=== PATIENT | female | born 1950 | race Caucasian/White ===

== ENCOUNTER 2017-11-07 15:02 | Outpatient (CLI) | payer MEDICARE, BC ==
[~2017-11-07 15:02] MED LIST: Gadobenate Dimeglumine 529 MG/1 ML (20ML VIAL) ONE
== END 2017-11-07 15:03 | disposition home or self-care (01) ==
LOC: BICMRI 15:02
PROVIDERS: ATTEND Internal Medicine
DX: M47.22 Other spondylosis with radiculopathy, cervical region (principal); M48.02 Spinal stenosis, cervical region; M99.51 Intervertebral disc stenosis of neural canal of cervical region
CPT/HCPCS: 72156; A9579

== ENCOUNTER 2017-12-03 11:30 | Inpatient (IN) | payer MEDICARE, BC ==
[2017-12-03 16:38] VITALS: BMI 29.1
[2017-12-11] MEDS ORDERED: CEFAZOLIN/Water 2 GM/20 ML SYRINGE ONE (06:54)
[2017-12-11] MEDS ORDERED: Bacitracin Zinc Ointment 30 gm TUBE ONE (08:38)
[2017-12-11] MEDS ORDERED: Sodium Chloride 0.9% 10 ML ONE (08:38)
[2017-12-11] MEDS ORDERED: Thrombin 5000 UNITS/5 ML VIAL ONE (08:38)
[2017-12-11] MEDS ORDERED: Fentanyl 100 MCG/2 ML VIAL ONE ×3 (09:51→11:41)
[2017-12-11] MEDS ORDERED: Milk Of Magnesia 30 ML UDCUP PO PRN (12:07)
[2017-12-11] MEDS ORDERED: Mag-Al 1200 mg/1200 mg/30 ML UDCUP PO PRN (12:07)
[2017-12-11] MEDS ORDERED: Fleet Enema 133 ML BOT PR PRN (12:07)
[2017-12-11] MEDS ORDERED: Promethazine HCl 25 MG/ML VIAL IM PRN (12:07)
[2017-12-11] MEDS ORDERED: HYDROcodone/Acetaminophen 7.5/325 mg Tablet PO PRN (12:07)
[2017-12-11] MEDS ORDERED: Bisacodyl 10 MG SUPP PR PRN (12:07)
[2017-12-11] MEDS ORDERED: Acetaminophen 325 MG TAB PO PRN (12:07)
[2017-12-11] MEDS ORDERED: tiZANidine HCl 4 MG TAB PO PRN (12:07)
[2017-12-11] MEDS ORDERED: traMADol HCl 50 MG TAB PO PRN (12:07)
[2017-12-11] MEDS ORDERED: Acetaminophen/Codeine 30-300mg Tablet PO PRN (12:07)
[2017-12-11] MEDS ORDERED: Morphine 4 MG/ML VIAL SLOW IVP PRN (12:15)
--- NOTE | 2017-12-11 12:36 | OP ---
OR: 11. WOUND TYPE: Type 1 wound. SURGEON: Hansel Thompson M.D. UTILITY OPERATOR YARN: Dylon Fonseca PA-C. 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 PROCEDURES PERFORMED: 1. C4-C5, C5-C6, C6-C7 anterior diskectomies for decompression of spinal cord and nerve roots. 2. Placement of interbody spacers for fusion packed with local bone autograft obtained from same [facility] ision and allograft, C4-C5, C5-C6, C6-C7. 3. Anterior cervical plate and screw fixation, C4, C5, C6, C7. 4. Use of operative microscope for microdissection. DESCRIPTION OF PROCEDURE: After informed consent was obtained from the patient, the patient was brou ght to OR. Proper patient pause and identification was carried out. She was placed under general an esthesia and positioned supine on the OR table. Right oblique anterior sanna was drawn out. This reg ion was sterilely cleansed, prepared, and draped. Proper patient pause and identification was fred d out. The wound was then opened with a combination of sharp, monopolar and blunt dissection, procee ded lateral to the larynx and pharynx and medial to the right carotid sheath. We identified the prev ertebral layer of deep cervical fascia. This was dissected, longus colli muscles were identified and retraction placed. The microscope was brought in the field at the localization and distraction at C 4-C5 occurred. Diskectomy was performed with decompression of spinal cord and nerve roots and prepar ation of the endplates. Interbody spacer packed with graft was placed for arthrodesis. Distraction was removed at C4-C5 and C5-C6. Distraction occurred. Diskectomy was performed there as well with d ecompression of the neural elements and preparation of the endplates as well and placement of a space r packed with graft at C5-C6. We then did the same procedure at C6-C7 with distraction and diskectom y, placement of a graft for arthrodesis and we then removed the microscope. A plate was affixed to t he cervical spine at, C4, C5, C6, C7. Copious irrigation occurred throughout. Hemostasis was maximi zed. The wound was then closed in anatomic layers over a drain. The patient then emerged from anest hesia.
[2017-12-11] MEDS: Sodium Chloride 0.9% 1,000 ML IV SCH (13:45)
[2017-12-11] MEDS ORDERED: CEFAZOLIN/Water 2 GM/20 ML SYRINGE SLOW IVP SCH (15:00)
[2017-12-11] MEDS ORDERED: ALPRAZolam 0.25 MG TAB PO PRN (16:21)
[2017-12-11] MEDS ORDERED: Loratadine 10 MG TAB PO PRN (16:21)
[2017-12-11] MEDS ORDERED: Esmolol 100 MG/10 ML VIAL ONE (16:40)
[2017-12-11] MEDS ORDERED: Dexamethasone 20 MG/5 ML VIAL ONE (16:40)
[2017-12-11] MEDS ORDERED: Lidocaine 1% PF 5 ML VIAL ONE (16:40)
[2017-12-11] MEDS ORDERED: Glycopyrrolate 0.2 MG/ML 5 ML SYRINGE ONE (16:40)
[2017-12-11] MEDS ORDERED: ePHEDrine/0.9% NaCl/PF SYRINGE 50 mg/10 ml ONE (16:40)
[2017-12-11] MEDS ORDERED: PROPOFOL 200 MG/20 ML VIAL ONE (16:40)
[2017-12-11] MEDS: metFORMIN 500 MG TAB PO SCH (18:41)
[2017-12-11] MEDS ORDERED: BROMFENAC SODIUM EA EYE SCH (21:00)
[2017-12-11] MEDS: Loteprednol Etabonate 0.5% Ophth Suspension 5 ml Bottle L EYE SCH (21:14)
[2017-12-12] MEDS: CEFAZOLIN/Water 2 GM/20 ML SYRINGE SLOW IVP SCH ×2 (01:40→09:05)
[2017-12-12] MEDS: Sodium Chloride 0.9% 1,000 ML IV SCH ×2 (06:38→12:01)
[2017-12-12 08:06] VITALS: BP 143/83; TEMP 98.2
[2017-12-12] MEDS ORDERED: glyBURIDE 5 MG TAB PO SCH (09:00)
[2017-12-12] MEDS ORDERED: CANAGLIFLOZIN PO SCH (09:00)
[2017-12-12] MEDS ORDERED: Escitalopram Oxalate 10 mg Tablet PO SCH (09:00)
[2017-12-12] MEDS ORDERED: Non-Formulary Item 1 EACH (Insulin Detemir [Levemir Flextouch] 10 UNIT) SC SCH (09:00)
[2017-12-12] MEDS ORDERED: Insulin Detemir 100 UNITS/ML 10 UNITS in Pre-Filled Syringe SC SCH (09:00)
[2017-12-12] MEDS: metFORMIN 500 MG TAB PO SCH (09:09)
[2017-12-12] MEDS: Loteprednol Etabonate 0.5% Ophth Suspension 5 ml Bottle L EYE SCH (12:01)
--- NOTE | 2017-12-12 20:40 | PRG ---
DATE OF SERVICE: 12/12/2017 SUBJECTIVE: Ms. Shannon is postoperative day #1 from multilevel ACDF. She is doing very well wit h improvement in her arm pain. She has good strength and is mobilizing. We went over intra and post operative issues. Her drain output is minimal. Her exam demonstrates good strength. She will be di smissed today following drain removal.
[2017-12-24] MEDS ORDERED: Cyanocobalamin 1000 MCG/ML VIAL SC SCH (09:00)
== END 2017-12-12 12:06 | disposition home or self-care (01) | DRG 472 ==
LOC: SURG A 12-11 05:57 → SJJU 12-11 13:09
PROVIDERS: ADMIT Surgery; ATTEND Surgery
PROC: 0RB30ZZ Excision of Cervical Vertebral Disc, Open Approach (ICD-10-PCS; principal; 2017-12-11)
PROC: 0RG2070 Fusion of 2 or more Cervical Vertebral Joints with Autologous Tissue Substitute, Anterior Approach, Anterior Column, Open Approach (ICD-10-PCS; 2017-12-11)
DX: M48.02 Spinal stenosis, cervical region (principal); G95.9 Disease of spinal cord, unspecified; D64.9 Anemia, unspecified; E78.5 Hyperlipidemia, unspecified; I10 Essential (primary) hypertension; E11.9 Type 2 diabetes mellitus without complications; M54.12 Radiculopathy, cervical region; Z87.891 Personal history of nicotine dependence
CPT/HCPCS: 36416; 76001; A4216; C1713; C1776; J1100; J1815; J2001; J2704; J3010; J3490

== ENCOUNTER 2017-12-03 16:15 | Outpatient (CLI) | payer MEDICARE, BC ==
[2017-12-03 18:09] LABS: Hemoglobin 13.2 g/dL (12.0-16.0); Mean Corpuscular HGB CONC 31.3 g/dL (32.0-36.0); Mean Corpuscular Hemoglobin 30.5 pg (27.0-31.0); Mean Corpuscular Volume 97.2 fl (81.0-99.0); Mean Platelet Volume 7.2 fL (7.4-10.4); Platelet Count 237 thou/uL (130-400); RBC Distribution Width 11.8 % (11.5-14.5); Red Blood Cell (RBC) Count 4.35 mill/uL (4.20-5.40); White Blood Cell (WBC) Count 8.1 thou/uL (4.8-10.8)
[2017-12-03 18:15] LABS: Prothrombin Time 13.5 SEC (12.0-14.7)
[2017-12-03 18:16] LABS: PTT 28.6 SEC (22.9-36.1)
[2017-12-03 18:28] LABS: Anion Gap 8 mmol/L (10-20); BUN (Urea Nitrogen) 20 mg/dL (9.8-20.1); Calc. Creatinine Clearance 0 mL/min (70-130); Calcium 9.2 mg/dL (7.8-10.44); Carbon Dioxide 31 mmol/L (23-31); Chloride 100 mmol/L (98-107); Estimated GFR-MDRD 55; Glucose 138 mg/dL (80-115); Potassium 4.3 mmol/L (3.5-5.1); Sodium 135 mmol/L (136-145)
== END 2017-12-03 16:16 | disposition home or self-care (01) ==
LOC: LABBT 16:15
PROVIDERS: ATTEND Surgery
DX: Z01.818 Encounter for other preprocedural examination (principal); M48.02 Spinal stenosis, cervical region; M54.12 Radiculopathy, cervical region
CPT/HCPCS: 80048; 85027; 85610; 85730; 93005; 93010

== ENCOUNTER 2017-12-20 02:12 | Emergency (ER) | payer MEDICARE, BC ==
[2017-12-20] MEDS ORDERED: Acetaminophen 500 MG TAB ONE (03:25)
[2017-12-20] MEDS ORDERED: Dextrose 50% Abboject 50 ML SYRINGE ONE (03:25)
[2017-12-20] MEDS ORDERED: HYDROcodone/Acetaminophen 7.5/325 mg Tablet ONE (04:07)
== END 2017-12-20 05:21 | disposition home or self-care (01) ==
LOC: ERS 02:12
DX: T38.3X1A Poisoning by insulin and oral hypoglycemic [antidiabetic] drugs, accidental (unintentional), initial encounter (principal); D50.0 Iron deficiency anemia secondary to blood loss (chronic); E11.9 Type 2 diabetes mellitus without complications; I10 Essential (primary) hypertension; Z79.4 Long term (current) use of insulin; Z79.899 Other long term (current) drug therapy
CPT/HCPCS: 36416; 96374

== ENCOUNTER 2018-01-28 13:33 | Outpatient (CLI) | payer MEDICARE, BC ==
--- NOTE | 2018-01-28 14:18 | RAD ---
CERVICAL SPINE: History: Follow up surgery. M54.12 Technique: AP, lateral, open mouth odontoid and swimmer's view cervical spine obtained. FINDINGS: Images demonstrate ACDF with anterior plate and screws fusing the C4, C5, C6, and C7 levels. Plates a nd screws are in good position. Intervertebral disc hardware is also in good position. No evidence of fractures, subluxations, or bony lesions seen. IMPRESSION: Mid and lower cervical ACDF with hardware in good position. POS: [facility]
== END 2018-01-28 13:34 | disposition home or self-care (01) ==
LOC: TBSIIMAG 13:33
PROVIDERS: ATTEND Surgery
DX: M54.12 Radiculopathy, cervical region (principal); Z98.1 Arthrodesis status
CPT/HCPCS: 72040

== ENCOUNTER 2018-02-16 12:53 | Outpatient (CLI) | payer MEDICARE, BC | END 2018-02-16 12:54 | disposition home or self-care (01) | LOC: BICMRI 12:53 | PROVIDERS: ATTEND Surgery | DX: M54.5 Low back pain (principal); M47.896 Other spondylosis, lumbar region; M43.16 Spondylolisthesis, lumbar region; M99.83 Other biomechanical lesions of lumbar region; M48.061 Spinal stenosis, lumbar region without neurogenic claudication | CPT/HCPCS: 72110; 72148 ==

== ENCOUNTER 2018-03-17 09:18 | Outpatient (CLI) | payer MEDICARE, BC ==
[2018-03-17] MEDS ORDERED: ISOVUE-370 76%-LOCM 1 ML ONE (12:30)
== END 2018-03-17 09:19 | disposition home or self-care (01) ==
LOC: BICCT 09:18
PROVIDERS: ATTEND Thoracic Surgery (Cardiothoracic Vascular Surgery)
DX: I65.29 Occlusion and stenosis of unspecified carotid artery (principal); I65.23 Occlusion and stenosis of bilateral carotid arteries; I65.03 Occlusion and stenosis of bilateral vertebral arteries; I77.1 Stricture of artery; J44.9 Chronic obstructive pulmonary disease, unspecified; Z98.1 Arthrodesis status
CPT/HCPCS: 70498; 82565

== ENCOUNTER 2018-04-28 07:10 | Outpatient (CLI) | payer MEDICARE, BC | END 2018-04-28 07:11 | disposition home or self-care (01) | LOC: ULT 07:10 | DX: I63.233 Cerebral infarction due to unspecified occlusion or stenosis of bilateral carotid arteries (principal); I08.3 Combined rheumatic disorders of mitral, aortic and tricuspid valves | CPT/HCPCS: 93306 ==

== ENCOUNTER 2018-09-02 12:55 | Outpatient (CLI) | payer MEDICARE, BC ==
--- NOTE | 2018-09-02 13:41 | RAD ---
PA AND LATERAL CHEST: History: Dyspnea. FINDINGS: The heart size is normal. The aorta is tortuous. The lungs are well expanded without focal areas of c onsolidation, pneumothoraces or pleural effusions. There are post op changes in the metallic hardware in the lower cervical spine. IMPRESSION: No radiographic evidence of acute cardiopulmonary process. POS: OFF
== END 2018-09-02 12:56 | disposition home or self-care (01) ==
LOC: RAD 12:55
PROVIDERS: ATTEND Internal Medicine
DX: R06.00 Dyspnea, unspecified (principal)
CPT/HCPCS: 71046

== ENCOUNTER 2018-09-10 08:55 | Outpatient (CLI) | payer MEDICARE, BC | END 2018-09-10 08:56 | disposition home or self-care (01) | LOC: CP 08:55 | PROVIDERS: ATTEND Internal Medicine | DX: J43.9 Emphysema, unspecified (principal); G47.33 Obstructive sleep apnea (adult) (pediatric) | CPT/HCPCS: 94060; 94727; 94729 ==

== ENCOUNTER 2018-10-01 17:00 | Outpatient (CLI) | payer MEDICARE, BC | END 2018-10-01 17:01 | disposition home or self-care (01) | LOC: SLEEPLAB 17:00 | PROVIDERS: ATTEND Internal Medicine | DX: G47.33 Obstructive sleep apnea (adult) (pediatric) (principal); I10 Essential (primary) hypertension; R09.89 Other specified symptoms and signs involving the circulatory and respiratory systems; R51 Headache; R06.83 Snoring; R35.1 Nocturia; R09.02 Hypoxemia | CPT/HCPCS: 95806 ==

== ENCOUNTER 2018-12-09 | Outpatient (CLI) | payer MEDICARE, BC ==
[2018-12-09 11:32] LABS: Hemoglobin 13.3 g/dL (12.0-16.0); Mean Corpuscular HGB CONC 31.9 g/dL (32.0-36.0); Mean Corpuscular Volume 97.2 fL (78.0-98.0); Mean Platelet Volume 7.5 fL (7.4-10.4); Platelet Count 234 thou/uL (130-400); RBC Distribution Width 13.1 % (11.5-14.5); Red Blood Cell (RBC) Count 4.28 mill/uL (4.20-5.40); White Blood Cell (WBC) Count 6.9 thou/uL (4.8-10.8)
[2018-12-09 11:38] LABS: PTT 29.4 SEC (22.9-36.1); Prothrombin Time 13.2 SEC (12.0-14.7)
[2018-12-09 11:53] LABS: Anion Gap 13 mmol/L (10-20); BUN (Urea Nitrogen) 22 mg/dL (9.8-20.1); Calc. Creatinine Clearance 0 mL/min (70-130); Calcium 9.2 mg/dL (7.8-10.44); Carbon Dioxide 28 mmol/L (23-31); Chloride 100 mmol/L (98-107); Estimated GFR-MDRD 69; Glucose 125 mg/dL (80-115); Potassium 4.2 mmol/L (3.5-5.1); Sodium 137 mmol/L (136-145)
--- NOTE | 2018-12-09 17:09 | EKG ---
Test Reason : Blood Pressure : / mmHG Vent. Rate : 071 BPM Atrial Rate : 071 BPM P-R Int : 132 ms QRS Dur : 072 ms QT Int : 416 ms P-R-T Axes : 036 -09 015 degrees QTc Int : 452 ms Normal sinus rhythm Inferior infarct , age undetermined Anterior infarct , age undetermined Abnormal ECG When compared with ECG of 03-DEC-2017 16:27, No significant change was found Confirmed by Lionel ZAYAS ([id number]) on 12/09/2018 5:09:15 PM Referred By: TUTU Confirmed By:Lionel ZAYAS
== END 2018-12-09 00:01 | disposition home or self-care (01) ==
LOC: LABBT
PROVIDERS: ATTEND Surgery
DX: Z01.818 Encounter for other preprocedural examination (principal); M54.16 Radiculopathy, lumbar region; M48.061 Spinal stenosis, lumbar region without neurogenic claudication
CPT/HCPCS: 80048; 85027; 85610; 85730; 93005; 93010

== ENCOUNTER 2018-12-15 07:18 | Day surgery (SDC) | payer MEDICARE, BC ==
[2018-12-09 10:09] VITALS: BMI 26.4
[2018-12-15] MEDS ORDERED: Bacitracin Zinc Ointment 30 gm TUBE ONE (10:16)
[2018-12-15] MEDS ORDERED: Sodium Chloride 0.9% 10 ML ONE (10:16)
[2018-12-15] MEDS ORDERED: Thrombin 5000 UNITS/5 ML VIAL ONE ×2 (10:16→12:07)
[2018-12-15] MEDS ORDERED: Fentanyl 100 MCG/2 ML VIAL ONE (10:19)
[2018-12-15] MEDS ORDERED: Ondansetron PF 4 MG/2 ML Vial ONE (13:26)
[2018-12-15] MEDS ORDERED: Morphine 2 MG/ML SYRINGE SLOW IVP PRN (13:27)
[2018-12-15] MEDS ORDERED: traMADol HCl 50 MG TAB PO PRN (13:27)
[2018-12-15] MEDS ORDERED: Fleet Enema 133 ML BOT PR PRN (13:27)
[2018-12-15] MEDS ORDERED: Mag-Al 1200 mg/1200 mg/30 ML UDCUP PO PRN (13:27)
[2018-12-15] MEDS ORDERED: Bisacodyl 10 MG SUPP PR PRN (13:27)
[2018-12-15] MEDS ORDERED: Acetaminophen/Codeine 30-300mg Tablet PO PRN (13:27)
[2018-12-15] MEDS ORDERED: HYDROcodone/Acetaminophen 7.5/325 mg Tablet PO PRN (13:27)
[2018-12-15] MEDS ORDERED: Milk Of Magnesia 30 ML UDCUP PO PRN (13:27)
[2018-12-15] MEDS ORDERED: ALPRAZolam 0.25 MG TAB PO PRN (13:30)
[2018-12-15] MEDS ORDERED: Promethazine HCl 25 MG/ML VIAL IM PRN (13:31)
[2018-12-15] MEDS ORDERED: Promethazine HCl 25 MG/ML VIAL SLOW IVP PRN (13:31)
[2018-12-15] MEDS ORDERED: Ondansetron HCl/PF 4 MG/2 ML Vial IVP PRN (13:31)
[2018-12-15] MEDS ORDERED: PHENYLEPHRINE-NS 100 MCG/ML 10 ML SYRINGE ONE (14:26)
[2018-12-15] MEDS ORDERED: Dexamethasone 20 MG/5 ML VIAL ONE (14:26)
[2018-12-15] MEDS ORDERED: Rocuronium Bromide 10 MG/ML (10ML VIAL) ONE (14:26)
[2018-12-15] MEDS ORDERED: PROPOFOL 200 MG/20 ML VIAL ONE (14:26)
[2018-12-15] MEDS ORDERED: Glycopyrrolate 0.2 MG/ML 5 ML SYRINGE ONE (14:26)
[2018-12-15] MEDS ORDERED: Lidocaine 1% PF 5 ML VIAL ONE (14:26)
[2018-12-15] MEDS ORDERED: ePHEDrine 50 MG/ML VIAL ONE (14:26)
--- NOTE | 2018-12-15 14:44 | OP ---
DATE OF PROCEDURE: 12/15/2018 OPERATING ROOM: OR 12. CHECKER AND PACKER: Dylon Fonseca PA-C PREPROCEDURE DIAGNOSIS: Lumbar stenosis with disk extrusion with low back and leg pain. POSTPROCEDURE DIAGNOSIS: Lumbar stenosis with disk extrusion with low back and leg pain. PROCEDURES PERFORMED: 1. L2-L3, L3-L4 laminectomies, partial facetectomies, foraminotomies with left L2-L3 diskectomy and right L3-L4 diskectomy. 2. Use of operative microscope for microdissection. DESCRIPTION OF PROCEDURE: After informed consent was obtained from the patient, the patient was brought to the OR. Proper patient, pause, and identification were carried out. She was placed under excellent endotracheal anesthesia and positioned prone on the OR table. All appropriate points were padded. We identified the L2, L3, L4 dorsal spines. A linear sanna was made over this area. This region was sterilely cleansed, prepared and draped. Proper patient, pause, and identification were carried out. The wound was then opened with a combination of sharp, monopolar, and blunt dissection. We exposed the L2, L3, L4 dorsal spines and lamina. Localization film confirmed our area of interest. We then performed L2, L3, L4 laminectomies, partial facetectomies, and foraminotomies. Microscope was brought in for microdissection. We then performed a left L2-L3 diskectomy and right L3-L4 diskectomy with excellent decompression of common dural tube and the L2, L3, L4 nerve roots bilaterally along with the thecal sac. Copious irrigation occurred throughout as did maximizing hemostasis. The wound was then closed in anatomic layers following sprinkling of vancomycin powder. The patient then emerged from anesthesia. Job ID: [id number]
[2018-12-15] MEDS: Sodium Chloride 0.9% 1,000 ML IV SCH (17:57)
[2018-12-15] MEDS: metFORMIN 500 MG TAB PO SCH (17:57)
[2018-12-15] MEDS: CEFAZOLIN 2 GM in Premix Bag 1 BAG IVPB SCH ×2 (17:58→23:58)
[2018-12-15] MEDS: Polyethylene Glycol OPTH DROP 15 ML BOT EA EYE SCH (20:17)
[2018-12-15] MEDS ORDERED: Atorvastatin Calcium 40 MG TAB PO SCH (21:00)
[2018-12-15] MEDS ORDERED: Clopidogrel Bisulfate 75 MG TAB ONE (22:29)
[2018-12-15] MEDS ORDERED: HumaLOG 300 UNITS/3 ML VIAL SC PRN ×2 (22:56)
[2018-12-15] MEDS ORDERED: Dextrose 50% Abboject 50 ML SYRINGE IVP PRN (22:56)
[2018-12-15] MEDS ORDERED: Dextrose 5% in Water 1,000 ML IV PRN (22:56)
[2018-12-15] MEDS: Acetaminophen 325 MG TAB PO PRN (23:58)
[2018-12-16] MEDS: Sodium Chloride 0.9% 1,000 ML IV SCH (04:04)
[2018-12-16] MEDS: Acetaminophen 325 MG TAB PO PRN (07:23)
[2018-12-16 07:47] VITALS: BP 138/73; TEMP 98.1
[2018-12-16] MEDS ORDERED: Ferrous Sulfate 325 MG TAB PO SCH (08:00)
[2018-12-16] MEDS ORDERED: Escitalopram Oxalate 10 mg Tablet PO SCH (09:00)
[2018-12-16] MEDS ORDERED: EMPAGLIFLOZIN PO SCH (09:00)
[2018-12-16] MEDS ORDERED: INSULIN DEGLUDEC 5 UNIT SC SCH (09:00)
[2018-12-16] MEDS ORDERED: Insulin Glargine 5 UNITS in Pre-Filled Syringe 1 EACH SC SCH (09:00)
[2018-12-16] MEDS: metFORMIN 500 MG TAB PO SCH (09:16)
[2018-12-16] MEDS: Polyethylene Glycol OPTH DROP 15 ML BOT EA EYE SCH (09:17)
--- NOTE | 2018-12-16 10:11 | PRG ---
DATE OF SERVICE: 12/16/2018 SUBJECTIVE: Ms. Shannon is postoperative day 1 from lumbar decompression diskectomy. She is doing well with improvement in her leg pain and is very appreciative of the evaluation. We will make arrangements for dismissal and we went over do's and don'ts in the postoperative period. Job ID: [id number]
== END 2018-12-16 10:40 ==
LOC: SDC 07:18 → SURG B 15:49 → UNDOADMOB 15:49 → INTOOBSV 15:49 → UNDODISOB 12-16 10:40 → SDC 12-16 10:40
PROVIDERS: ATTEND Surgery
PROC: 01NB0ZZ Release Lumbar Nerve, Open Approach (ICD-10-PCS; principal; 2018-12-15)
PROC: 0ST20ZZ Resection of Lumbar Vertebral Disc, Open Approach (ICD-10-PCS; 2018-12-15)
DX: M48.061 Spinal stenosis, lumbar region without neurogenic claudication (principal); M51.26 Other intervertebral disc displacement, lumbar region; Z79.4 Long term (current) use of insulin; Z79.82 Long term (current) use of aspirin; Z79.899 Other long term (current) drug therapy; Z91.048 Other nonmedicinal substance allergy status; Z98.1 Arthrodesis status; Z98.890 Other specified postprocedural states
CPT/HCPCS: 36416; 76000; J0690; J1100; J1825; J2001; J2405; J2704; J3010; J3370; J3490

== ENCOUNTER 2019-01-16 18:16 | Emergency (ER) | payer MEDICARE, BC ==
[2019-01-16] MEDS ORDERED: Lidocaine 1% w/Epinephrine 1:100K 20 ML VIAL ONE (19:01)
[2019-01-16 19:16] LABS: #Basophils 0.1 thou/uL (0.0-0.2); #Eosinphils 0.2 thou/uL (0.0-0.7); #Monocytes 0.6 thou/uL (0.11-0.59); #Neutrophils 3.5 thou/uL (1.40-6.50); %Basophils 1.1 % (0.0-1.0); %Lymphocytes 31.7 % (21.0-51.0); %Monocytes 9.2 % (0.0-10.0); %Neutrophils 55.1 % (42.0-75.0); Mean Corpuscular HGB CONC 31.3 g/dL (32.0-36.0); Mean Corpuscular Hemoglobin 29.7 pg (27.0-31.0); Mean Corpuscular Volume 94.9 fL (78.0-98.0); Mean Platelet Volume 7.2 fL (7.4-10.4); Platelet Count 254 thou/uL (130-400); RBC Distribution Width 12.8 % (11.5-14.5); Red Blood Cell (RBC) Count 4.06 mill/uL (4.20-5.40); White Blood Cell (WBC) Count 6.3 thou/uL (4.8-10.8)
[2019-01-16 19:36] LABS: ALT (SGPT) 16 U/L (8-55); AST (SGOT) 18 U/L (5-34); Albumin 3.6 g/dL (3.4-4.8); Alkaline Phosphatase 93 U/L (40-150); Anion Gap 13 mmol/L (10-20); BUN (Urea Nitrogen) 24 mg/dL (9.8-20.1); Bilirubin, Total 0.3 mg/dL (0.2-1.2); CRP (Inflammatory) 1.94 mg/dL (= or < 0.5); Calc. Creatinine Clearance 0 mL/min (70-130); Calcium 9.2 mg/dL (7.8-10.44); Carbon Dioxide 27 mmol/L (23-31); Chloride 102 mmol/L (98-107); Estimated GFR-MDRD 68; Globulin 2.8 g/dL (2.4-3.5); Glucose 89 mg/dL (80-115); Potassium 4.1 mmol/L (3.5-5.1); Protein, Total 6.4 g/dL (6.0-8.3); Sodium 138 mmol/L (136-145)
--- NOTE | 2019-01-16 21:08 | OP ---
DATE OF PROCEDURE: 01/16/2019 PROCEDURE: Wound repair. INDICATION: Wound dehiscence. LOCATION: Lumbar lower region. PROCEDURE NOTE: The area was prepped and draped in sterile fashion. Local anesthesia was achieved using 1% lidocaine without epinephrine. The wound was irrigated with normal saline. 2-0 nylon interrupted vertical mattress sutures were placed. Five were placed. Following the procedure, sterile dressing was applied. The patient tolerated the procedure well without complications. We will arrange a followup visit with Dr. Thompson early next week. The patient will remain on Keflex. Job ID: [id number]
== END 2019-01-16 19:51 | disposition home or self-care (01) ==
LOC: ERS 18:16
DX: T81.31XA Disruption of external operation (surgical) wound, not elsewhere classified, initial encounter (principal); E11.9 Type 2 diabetes mellitus without complications; E61.1 Iron deficiency; I10 Essential (primary) hypertension; H35.30 Unspecified macular degeneration
CPT/HCPCS: 36415; 80053; 85025; 85652; 86140; 99283; J2001

== ENCOUNTER 2019-04-14 08:57 | Outpatient (CLI) | payer MEDICARE, BC ==
--- NOTE | 2019-04-14 11:26 | RAD ---
BARIUM SWALLOW ESOPHAGRAM: EXPOSURE: 2.6 minutes, 11.159 uGy*^cm2. HISTORY: Previous cervical fusion. Abnormal sensation and difficulty swallowing in the cervical esophagus. FINDINGS: The patient was administered effervescent crystals followed by thick and thin barium. There does appear to be flash penetration without definite aspiration. The cervical esophagus does n ot demonstrate any delay in passage. No evidence of stricture or narrowing. The thoracic esophagus has a normal force and caliber. No obvious mucosal abnormality. There does a ppear to be a small hiatal hernia. There was evidence of reflux during intermittent fluoroscopy. Th e patient was administered a 13 mm barium tablet which passed without difficulty. IMPRESSION: 1. No evidence of significant stenosis or mass effect of the cervical esophagus, specifically at the level of the cervical fusion hardware. 2. Possible flash penetration without aspiration. Consider evaluation with speech pathology. 3. Intermittent reflux during fluoroscopy. POS: OFF
--- NOTE | 2019-04-20 06:47 | MMO ---
Bilateral MAMMO Bilat Screen [id number]+NAWAF. CLINICAL HISTORY: Patient is 69 years old and is seen for screening. The patient has the following family history of breast cancer: paternal grandmother. The patient has no personal history of cancer. VIEWS: The views performed were: bilateral craniocaudal with tomosynthesis and bilateral mediolateral oblique with tomosynthesis. FILMS COMPARED: The present examination has been compared to a prior imaging study performed at [facility] on 11/29/2010. MAMMOGRAM FINDINGS: There are scattered fibroglandular densities. There are benign appearing calcifications seen in both breasts. There are no suspicious masses, suspicious calcifications, or new areas of architectural distortion. IMPRESSION: THERE IS NO MAMMOGRAPHIC EVIDENCE OF MALIGNANCY. A ROUTINE FOLLOW-UP MAMMOGRAM IN 1 YEAR IS RECOMMENDED. THE RESULTS OF THIS EXAM WERE SENT TO THE PATIENT. ACR BI-RADS Category 2 - Benign finding MAMMOGRAPHY NOTE: 1. A negative mammogram report should not delay a biopsy if a dominant of clinically suspicious mass is present. 2. Approximately 10% to 15% of breast cancers are not detected by mammography. 3. Adenosis and dense breasts may obscure an underlying neoplasm. Reported by: GENA BAPTISTE MD Electonically Signed: [id number]
== END 2019-04-14 08:58 | disposition home or self-care (01) ==
LOC: RAD 08:57
PROVIDERS: ATTEND Internal Medicine
DX: R47.02 Dysphasia (principal)
CPT/HCPCS: 74220; 77063; 77067

== ENCOUNTER 2019-09-15 07:38 | Outpatient (CLI) | payer MEDICARE, BC ==
--- NOTE | 2019-09-15 09:10 | CT ---
CT ABDOMEN AND PELVIS WITH CONTRAST: HISTORY: Abdominal pain. COMPARISON: None. FINDINGS: There are large bilateral layering pleural effusions. There appears to be a pseudoaneurysm of the le ft 9th intercostal artery which is partially thrombosed. It measures approximately 1 cm in size. The hepatic attenuation is somewhat heterogeneous. Multiple hypodensities are sub-5 mm and too small to fully characterize, although statistically is likely a cyst. There is aortoiliac bypass graft bypassing an occluded distal abdominal aorta. The bypass graft does appear to be patent. The iliac vessels are patent. There are high-grade calcifications of the bila teral common femoral arteries with concern for occlusion of the right common femoral artery with flow within the femoral artery. There is near-complete occlusion of the left common femoral artery. Extensive third spacing of fluid. Prior gastric surgery. Prior cholecystectomy. [place] effect of the intrahepatic and extrahepatic biliary system. Pancre as is mildly atrophied. The celiac trunk origin is nearly completely occluded with low volume of flow within the celiac arter y tributaries including the splenic artery, hepatic artery, and left gastric artery. There is subseq uent hypertrophy of the superior mesenteric artery. The appendix is visualized and is normal. There are no dilated loops of large or small bowel. No fr ee intraperitoneal gas or significant fluid. There is a chronic superior end plate wedge compression fracture and Schmorl's node at L1. Likely in traosseous hemangioma of L3. Prior laminectomy changes at L2-L3. There is high-grade neural foramin al narrowing at L4-5 due to a disk bulge and hypertrophic facet arthrosis. The adrenal glands are unremarkable. The spleen is unremarkable. IMPRESSION: 1. Large bilateral layering pleural effusions. 2. A 1 cm pseudoaneurysm of the left 9th intercostal artery axial image 13. 3. Multiple hypodensities in the liver too small to fully characterize sub 5 mm suggestive of cyst. 4. Extensive third spacing of fluid likely suggestive of underlying diastolic dysfunction or volume overload. 5. Patent aortobiiliac graft bypassing the occluded distal abdominal aorta and iliac vessels. 6. High-grade narrowing, likely a focal occlusion of the right common femoral artery with flow withi n the right femoral artery completely evaluated. Followup CT angiogram with runoff to the feet may b e beneficial in this patient versus a conventional angiogram with therapy. 7. High-grade narrowing of the left femoral artery and common femoral artery. 8. No evidence for bowel obstruction or acute bowel inflammatory process. 9. High-bony near complete occlusion of the origin of the celiac trunk with low volume flow within the celiac tributaries. POS: TPC
[2019-09-15] MEDS ORDERED: Iopamidol 370 76% 100 ML VIAL ONE (13:40)
== END 2019-09-15 07:39 | disposition home or self-care (01) ==
LOC: CT 07:38
PROVIDERS: ATTEND Internal Medicine Gastroenterology
DX: R10.9 Unspecified abdominal pain (principal); J90 Pleural effusion, not elsewhere classified; K76.89 Other specified diseases of liver
CPT/HCPCS: 74177; 82565; Q9967

== ENCOUNTER 2019-10-26 12:39 | Outpatient (CLI) | payer MEDICARE, BC ==
[2019-10-26 13:30] LABS: #Basophils 0.1 thou/uL (0.0-0.2); #Eosinphils 0.3 thou/uL (0.0-0.7); #Lymphocytes 1.8 thou/uL (1.20-3.40); #Monocytes 0.6 thou/uL (0.11-0.59); #Neutrophils 4.5 thou/uL (1.40-6.50); %Basophils 1.4 % (0.0-1.0); %Eosinophils 3.7 % (0.0-10.0); %Lymphocytes 24.3 % (21.0-51.0); %Monocytes 8.5 % (0.0-10.0); %Neutrophils 62.1 % (42.0-75.0); Hemoglobin 13.6 g/dL (12.0-16.0); Mean Corpuscular Hemoglobin 29.2 pg (27.0-31.0); Mean Corpuscular Volume 91.2 fL (78.0-98.0); Mean Platelet Volume 8.3 fL (7.4-10.4); Platelet Count 200 thou/uL (130-400); RBC Distribution Width 14.1 % (11.5-14.5); Red Blood Cell (RBC) Count 4.66 mill/uL (4.20-5.40); White Blood Cell (WBC) Count 7.2 thou/uL (4.8-10.8)
[2019-10-26 13:51] LABS: ALT (SGPT) 13 U/L (8-55); AST (SGOT) 13 U/L (5-34); Albumin 4.3 g/dL (3.4-4.8); Alkaline Phosphatase 97 U/L (40-110); Anion Gap 20 mmol/L (10-20); BUN (Urea Nitrogen) 47 mg/dL (9.8-20.1); Bilirubin, Total 0.4 mg/dL (0.2-1.2); Calc. Creatinine Clearance 0 mL/min (70-130); Calcium 9.2 mg/dL (7.8-10.44); Carbon Dioxide 22 mmol/L (23-31); Chloride 96 mmol/L (98-107); Estimated GFR-MDRD 22; Globulin 3.1 g/dL (2.4-3.5); Glucose 365 mg/dL (80-115); Potassium 5.3 mmol/L (3.5-5.1); Protein, Total 7.4 g/dL (6.0-8.3); Sodium 133 mmol/L (136-145)
== END 2019-10-26 12:40 | disposition home or self-care (01) ==
LOC: LABBT 12:39
PROVIDERS: ATTEND Internal Medicine Cardiovascular Disease
DX: Z01.812 Encounter for preprocedural laboratory examination (principal); I42.0 Dilated cardiomyopathy
CPT/HCPCS: 80053; 85025

== ENCOUNTER 2019-10-28 09:49 | Observation (INO) | payer MEDICARE, BC ==
[2019-10-28 11:06] LABS: Anion Gap 17 mmol/L (10-20); BUN (Urea Nitrogen) 49 mg/dL (9.8-20.1); Calc. Creatinine Clearance 27 mL/min (70-130); Calcium 9.4 mg/dL (7.8-10.44); Carbon Dioxide 25 mmol/L (23-31); Cardiac Risk 2.9 (Less than 4.5); Chloride 98 mmol/L (98-107); Cholesterol 174 mg/dl (< 200 Desired); Estimated GFR-MDRD 24; Glucose 179 mg/dL (80-115); HDL Cholesterol 59 mg/dL (>60 Neg Risk); LDL Cholesterol, Calculated 96 mg/dL; Potassium 4.4 mmol/L (3.5-5.1); Sodium 136 mmol/L (136-145); Triglycerides 93 mg/dL (Less than 150)
[2019-10-28 15:47] VITALS: BMI 23.8
[2019-10-28] MEDS ORDERED: ALPRAZolam 0.25 MG TAB PO PRN (16:26)
[2019-10-28 16:37] LABS: #Basophils 0.1 thou/uL (0.0-0.2); #Eosinphils 0.2 thou/uL (0.0-0.7); #Lymphocytes 2.1 thou/uL (1.20-3.40); #Monocytes 0.8 thou/uL (0.11-0.59); %Basophils 1.1 % (0.0-1.0); %Eosinophils 2.7 % (0.0-10.0); %Lymphocytes 29.3 % (21.0-51.0); %Monocytes 10.9 % (0.0-10.0); Hemoglobin 12.5 g/dL (12.0-16.0); Mean Corpuscular HGB CONC 32.4 g/dL (32.0-36.0); Mean Corpuscular Hemoglobin 29.4 pg (27.0-31.0); Mean Corpuscular Volume 90.9 fL (78.0-98.0); Platelet Count 178 thou/uL (130-400); RBC Distribution Width 14.2 % (11.5-14.5); Red Blood Cell (RBC) Count 4.24 mill/uL (4.20-5.40); White Blood Cell (WBC) Count 7.1 thou/uL (4.8-10.8)
[2019-10-28] MEDS ORDERED: Aspirin 81 mg Enteric Coated Tablet PO SCH (16:45)
[2019-10-28] MEDS ORDERED: Lisinopril 10 MG TAB PO SCH (16:45)
[2019-10-28] MEDS ORDERED: Escitalopram Oxalate 10 mg Tablet PO SCH (16:45)
[2019-10-28 16:58] LABS: ALT (SGPT) 11 U/L (8-55); AST (SGOT) 13 U/L (5-34); Albumin 3.8 g/dL (3.4-4.8); Alkaline Phosphatase 83 U/L (40-110); Anion Gap 17 mmol/L (10-20); BUN (Urea Nitrogen) 44 mg/dL (9.8-20.1); Bilirubin, Total 0.3 mg/dL (0.2-1.2); Calc. Creatinine Clearance 26 mL/min (70-130); Calcium 8.8 mg/dL (7.8-10.44); Carbon Dioxide 22 mmol/L (23-31); Cardiac Risk 3.1 (Less than 4.5); Chloride 99 mmol/L (98-107); Cholesterol 158 mg/dl (< 200 Desired); Estimated GFR-MDRD 23; Glucose 379 mg/dL (80-115); HDL Cholesterol 51 mg/dL (>60 Neg Risk); LDL Cholesterol, Calculated 89 mg/dL; Potassium 4.7 mmol/L (3.5-5.1); Protein, Total 6.8 g/dL (6.0-8.3); Sodium 133 mmol/L (136-145); Triglycerides 90 mg/dL (Less than 150)
[2019-10-28] MEDS: Sodium Chloride 0.9% 1,000 ML IV SCH (17:24)
[2019-10-28] MEDS ORDERED: Atorvastatin Calcium 40 MG TAB PO SCH (21:00)
[2019-10-28] MEDS: Polyethylene Glycol OPTH DROP 15 ML BOT EA EYE SCH (21:58)
[2019-10-28] MEDS ORDERED: Dextrose 50% Abboject 50 ML SYRINGE IVP PRN (22:35)
[2019-10-28] MEDS ORDERED: Dextrose 5% in Water 1,000 ML IV PRN (22:35)
[2019-10-28] MEDS ORDERED: Insulin Regular 300 UNITS/3 ML VIAL SC PRN ×2 (22:35)
[2019-10-29] MEDS: Polyethylene Glycol OPTH DROP 15 ML BOT EA EYE SCH (05:51)
[2019-10-29 05:54] LABS: Anion Gap 12 mmol/L (10-20); BUN (Urea Nitrogen) 38 mg/dL (9.8-20.1); Calc. Creatinine Clearance 34 mL/min (70-130); Calcium 8.6 mg/dL (7.8-10.44); Carbon Dioxide 25 mmol/L (23-31); Chloride 103 mmol/L (98-107); Estimated GFR-MDRD 31; Glucose 112 mg/dL (80-115); Potassium 4.4 mmol/L (3.5-5.1); Sodium 136 mmol/L (136-145)
[2019-10-29] MEDS: Sodium Chloride 0.9% 1,000 ML IV SCH (05:59)
[2019-10-29] MEDS ORDERED: Lidocaine 1% (PF) 30 ML VIAL ONE (06:28)
[2019-10-29] MEDS ORDERED: Midazolam HCl 2 mg/2 ml Vial ONE (07:40)
[2019-10-29] MEDS ORDERED: Fentanyl 100 MCG/2 ML VIAL ONE (07:41)
[2019-10-29] MEDS ORDERED: Verapamil 5 MG/2 ML VIAL ONE (07:42)
[2019-10-29] MEDS ORDERED: Nitroglycerin 100MG/250ML BOT 250 ML ONE (07:42)
[2019-10-29] MEDS ORDERED: Heparin 10,000 UNITS/1 ML VIAL ONE (07:42)
[2019-10-29] MEDS ORDERED: Acetaminophen/Codeine 30-300mg Tablet PO PRN (08:11)
[2019-10-29] MEDS ORDERED: Sodium Chloride 0.9% 200 ML IV PRN (08:11)
[2019-10-29] MEDS ORDERED: Nitroglycerin 0.4 MG TAB (25 Tab Bottle) SL PRN (08:11)
[2019-10-29] MEDS ORDERED: Sodium Chloride 0.9% 300 ML IV SCH (08:15)
--- NOTE | 2019-10-29 08:21 | HP ---
HISTORY OF PRESENT ILLNESS: Ms. Shannon was scheduled for an outpatient heart catheterization, however, she had a creatinine of 2.07, so she was admitted for hydration overnight. Please see my H and P from the office for further details. I attached that note in this note for reference. The details of the H and P, past medical history, past surgical history, medications, and allergies are all documented there, no changes. PHYSICAL EXAMINATION: VITAL SIGNS: Temperature 98.2, pulse 78, respiratory rate 20, saturating 98% on room air, and blood pressure 138/62. GENERAL: Awake, alert, and oriented x3. No distress. HEENT: Normocephalic and atraumatic. NECK: Supple. LUNGS: Clear. CARDIOVASCULAR: S1 and S2. No S3 or S4. ABDOMEN: Soft. Positive bowel sounds. LABORATORY DATA: Laboratory work was reviewed. ASSESSMENT: 1. New onset systolic dysfunction. 2. Severe peripheral vascular disease. PLAN: Hydration overnight and heart catheterization on 10/29/2019. Job ID: [id number]
[2019-10-29] MEDS ORDERED: Lisinopril 10 MG TAB PO SCH (09:00)
[2019-10-29] MEDS ORDERED: Escitalopram Oxalate 10 mg Tablet PO SCH (09:00)
[2019-10-29] MEDS ORDERED: Insulin Glargine 5 UNITS in Pre-Filled Syringe 1 EACH SC SCH (09:00)
[2019-10-29] MEDS ORDERED: Aspirin 81 mg Enteric Coated Tablet PO SCH (09:00)
[2019-10-29] MEDS ORDERED: Ferrous Sulfate 325 MG TAB PO SCH (09:00)
[2019-10-29] MEDS ORDERED: JARDIANCE PO SCH (09:00)
[2019-10-29] MEDS ORDERED: Meloxicam 7.5 MG TAB PO SCH (09:00)
[2019-10-29] MEDS ORDERED: Iopamidol 370 76% 100 ML VIAL ONE (09:22)
[2019-10-29 16:08] VITALS: BP 106/55; TEMP 97.5
--- NOTE | 2019-10-29 16:21 | DIS ---
DATE OF ADMISSION: 10/28/2019 DATE OF DISCHARGE: 10/29/2019 SUMMARY: Ms. Shannon was admitted overnight for hydration for heart catheterization this morning. She had this done. She did well. She was found to have multivessel disease and will need coronary artery bypass grafting. She is in good spirits. Denies any angina. Her radial site looks intact. Dr. Robles already evaluated her and plan is to do surgery sometime next week. She is in stable condition. She should be able to be discharged home. She received her IV fluids postoperatively and is doing well. MEDICATIONS: Unchanged from admission. We will ask her to hold metformin over the weekend and restart on Friday. FOLLOWUP APPOINTMENTS: She will be scheduled for CABG sometime in next week. Job ID: [id number]
[2019-11-04] MEDS ORDERED: Cyanocobalamin 1000 MCG/ML VIAL IM SCH (09:00)
== END 2019-10-29 16:58 | disposition home health service (06) ==
LOC: CCL 09:49 → 2SW 12:13
PROVIDERS: ADMIT Internal Medicine Cardiovascular Disease; ATTEND Internal Medicine Cardiovascular Disease
PROC: 4A023N7 Measurement of Cardiac Sampling and Pressure, Left Heart, Percutaneous Approach (ICD-10-PCS; principal; 2019-10-28)
PROC: B2111ZZ Fluoroscopy of Multiple Coronary Arteries using Low Osmolar Contrast (ICD-10-PCS; 2019-10-28)
DX: I42.0 Dilated cardiomyopathy (principal); I35.1 Nonrheumatic aortic (valve) insufficiency; I65.23 Occlusion and stenosis of bilateral carotid arteries; I73.9 Peripheral vascular disease, unspecified; I50.33 Acute on chronic diastolic (congestive) heart failure; E11.40 Type 2 diabetes mellitus with diabetic neuropathy, unspecified; G47.30 Sleep apnea, unspecified; Z79.4 Long term (current) use of insulin; Z79.82 Long term (current) use of aspirin; Z79.899 Other long term (current) drug therapy; Z87.891 Personal history of nicotine dependence; Z99.89 Dependence on other enabling machines and devices
CPT/HCPCS: 80048 ×2; 80053; 80061; 82962 ×2; 85025; 93458; 94760; 96360; 96361 ×2; C1769 ×2; G0378 ×2; 36415; 36416; 99152; J1644; J1815; J2001; J2250; J3010; Q9967

== ENCOUNTER 2019-11-08 15:30 | Inpatient (IN) | payer MEDICARE, BC ==
[2019-11-08 16:42] VITALS: BMI 24.6
[2019-11-09] MEDS ORDERED: Albumin 5% 500 ML ONE (06:31)
[2019-11-09] MEDS ORDERED: Dexmedetomidine 200 MCG/2 ML VIAL ONE (06:44)
[2019-11-09] MEDS ORDERED: Fentanyl 250 MCG/5 ML VIAL ONE (06:44)
[2019-11-09] MEDS ORDERED: Vecuronium 10 MG VIAL ONE ×2 (06:44→10:14)
[2019-11-09] MEDS ORDERED: Midazolam HCl 5 mg/5 ml Vial ONE (06:44)
[2019-11-09] MEDS ORDERED: Heparin 10,000 UNITS/1 ML VIAL 30,000 UNITS in Sodium Chloride 0.9% 1,000 ML FS SCH (06:45)
[2019-11-09] MEDS ORDERED: Midazolam HCl 2 mg/2 ml Vial ONE (07:02)
--- NOTE | 2019-11-09 07:12 | HP ---
HISTORY OF PRESENT ILLNESS: This is a 69-year-old lady, who I have followed for many years, who I saw about 6 weeks ago. At that time, she had recently been discharged from the hospital diuresing about 25 pounds of fluid. She had not felt well since Thanksgiving with fluid retention and fatigue. She was seen by Dr. Kendall, who recommended a cardiac catheterization after an echo showed an EF of 40% to 45% with inferior hypokinesis. She underwent a right arm catheterization showing a high-grade LAD lesion, occluded left dominant circ with visualization of a bifurcating OM and a left PDA. CT scan of her abdomen demonstrated a patent aortoiliac graft with significant severe bilateral common femoral artery stenosis that needed attention. She has a known left subclavian artery occlusion or high-grade lesion and significant disease in her innominate artery making blood pressure monitoring impossible for any extremity. PAST MEDICAL HISTORY: Includes rheumatic aortic valve insufficiency, type 2 diabetes, peripheral vascular disease, emphysema, neuropathy, sleep apnea, on CPAP. PAST SURGICAL HISTORY: Aorta bi-iliac bypass graft, lumbar laminectomy, hip replacement, right carotid endarterectomy, laparoscopic cholecystectomy, gastric bypass, plastic surgery to remove excess abdominal wall tissue. PAST MEDICAL HISTORY: Hypertension, dyslipidemia, diabetes mellitus, PAD, carotid disease, subclavian artery disease. MEDICATIONS: Include; 1. Atorvastatin 40. 2. Alprazolam 0.5 b.i.d. 3. Tresiba 5 units daily. 4. Metformin 1000 b.i.d. 5. Protonix 40 a day. 6. Escitalopram tablet daily. 7. Aspirin 81 a day. 8. Jardiance 25 mg orally. 9. Lisinopril 10 mg a day. 10. Iron supplements. 11. Amitiza 24 mcg b.i.d. 12. Meloxicam 7.5 daily. 13. Lasix 40 a day. ALLERGIES: NONE KNOWN. PHYSICAL EXAMINATION: GENERAL: Alert, cooperative lady, pleasant, in no distress. VITAL SIGNS: Heart rate 65, blood pressure 100/ in the right arm. Height 5 feet 5 inches, weight 158. NECK: No carotid bruits. CARDIAC: Regular rate and rhythm. No murmurs. LUNGS: Clear to auscultation. EXTREMITIES: No edema. She has palpable femoral pulses with bruits. PLAN: The patient could have bypass grafting to the LAD, OM, left PDA, possibly diagonal and the LENZ will have to be used as a free graft. Consideration will be given to a right aorto subclavian bypass to allow blood pressure monitoring and temporary placement of a right femoral arterial line will be done. Informed consent has been obtained. Job ID: [id number]
[2019-11-09] MEDS ORDERED: Sodium Chloride 0.9% 10 ML ONE (07:49)
[2019-11-09] MEDS ORDERED: Glycopyrrolate 0.2 MG/ML 5 ML SYRINGE ONE (10:14)
[2019-11-09] MEDS ORDERED: Heparin 5,000 UNITS/ML VIAL ONE (10:14)
[2019-11-09] MEDS ORDERED: PHENYLEPHRINE-NS 100 MCG/ML 10 ML SYRINGE ONE ×2 (10:14→10:44)
[2019-11-09] MEDS ORDERED: PROPOFOL 200 MG/20 ML VIAL ONE (10:14)
[2019-11-09] MEDS ORDERED: Norepinephrine 4 MG/4 ML VIAL ONE (10:14)
[2019-11-09] MEDS ORDERED: Lidocaine 1% PF 5 ML VIAL ONE (10:14)
[2019-11-09] MEDS ORDERED: Thrombin 5000 UNITS/5 ML VIAL ONE (10:14)
[2019-11-09] MEDS ORDERED: Cardioplegic Soln 1,000 ML BAG ONE (10:14)
[2019-11-09] MEDS ORDERED: Protamine Sulfate 250 MG/25 ML VIAL ONE (10:14)
[2019-11-09] MEDS ORDERED: Dexamethasone 20 MG/5 ML VIAL ONE (10:14)
[2019-11-09] MEDS ORDERED: Heparin 30,000 units/30 ml VIAL ONE (10:14)
[2019-11-09] MEDS ORDERED: Potassium Chloride 60 MEQ/30 ML VIAL ONE (10:14)
[2019-11-09] MEDS ORDERED: Aminocaproic Acid 5 GM/20 ML VIAL ONE (10:14)
[2019-11-09] MEDS ORDERED: Papaverine 60 MG/2 ML VIAL ONE (10:14)
[2019-11-09] MEDS ORDERED: Nitroglycerin 50 MG/250 ML BOT ONE (10:14)
[2019-11-09] MEDS ORDERED: Calcium Chloride 1 GM/10 ML Abboject SYRINGE ONE (10:14)
[2019-11-09] MEDS ORDERED: Magnesium Sulfate 1 GM/2 ML VIAL ONE (10:14)
[2019-11-09] MEDS ORDERED: Sodium Bicarb 50 MEQ/50 ML Abboject 8.4% SYRINGE ONE (10:14)
[2019-11-09] MEDS ORDERED: Ondansetron PF 4 MG/2 ML Vial ONE (10:14)
[2019-11-09] MEDS ORDERED: Lidocaine 2% PF 5 ML VIAL ONE (10:14)
[2019-11-09] MEDS ORDERED: Insulin Regular 300 UNITS/3 ML VIAL ONE (10:58)
[2019-11-09] MEDS ORDERED: Potassium Chloride 20 MEQ/100 ML PREMIX BAG IVPB PRN (12:00)
[2019-11-09] MEDS ORDERED: Nitroglycerin 50 MG/250 ML BOT 250 ML IVPB PRN (12:00)
[2019-11-09] MEDS ORDERED: Mag-Al 1200 mg/1200 mg/30 ML UDCUP PO PRN (12:00)
[2019-11-09] MEDS ORDERED: Fentanyl 100 MCG/2 ML VIAL SLOW IVP PRN (12:00)
[2019-11-09] MEDS ORDERED: niCARdipine 25 MG in Sodium Chloride 0.9% 250 ML 250 ML IVPB PRN (12:00)
[2019-11-09] MEDS ORDERED: Acetaminophen 325 MG TAB PO PRN (12:00)
[2019-11-09] MEDS ORDERED: HYDROcodone/Acetaminophen 5/325 mg Tablet PO PRN ×2 (12:00)
[2019-11-09] MEDS ORDERED: Norepinephrine 8 MG/0.9% NS 250 ML IVPB PRN (12:00)
[2019-11-09] MEDS ORDERED: Ondansetron PF 4 MG/2 ML Vial IVP PRN (12:00)
[2019-11-09] MEDS ORDERED: hydrALAZINE 20 MG/ML VIAL SLOW IVP PRN (12:00)
[2019-11-09] MEDS ORDERED: DOPamine 400 MG/D5W 250 ML 250 ML IVPB PRN (12:00)
[2019-11-09] MEDS ORDERED: Morphine 2 MG/ML SYRINGE SLOW IVP PRN (12:00)
[2019-11-09] MEDS ORDERED: Hetastarch 6% 500 ML 500 ML IVPB PRN (12:00)
[2019-11-09] MEDS ORDERED: Post-Op Insulin Drip Protocol IVPB ONE (12:00)
[2019-11-09] MEDS ORDERED: Magnesium 2 GM/50 ML 2 GM in Premix Bag 1 BAG IVPB SCH (12:00)
[2019-11-09] MEDS ORDERED: Guaifenesin DM 100-10/5 ML UDCUP PO PRN (12:00)
[2019-11-09] MEDS ORDERED: Bisacodyl 5 MG TAB PO PRN (12:00)
[2019-11-09] MEDS ORDERED: Bisacodyl 10 MG SUPP PR PRN (12:00)
[2019-11-09] MEDS ORDERED: HUMULIN R 100 UNITS in Sodium Chloride 0.9% 100 ML IVPB SCH (12:09)
[2019-11-09] MEDS ORDERED: Dextrose 50% Abboject 50 ML SYRINGE SLOW IVP PRN (12:09)
[2019-11-09] MEDS ORDERED: Dextrose 5% in Water 1,000 ML IV PRN (12:09)
[2019-11-09] MEDS: Lactated Ringer's 1,000 ML IV SCH ×2 (12:15→21:15)
[2019-11-09 12:22] LABS: Actual Bicarbonate (HCO3a) 20.7 mEq/L (22-28); Base Excess (BEa) -5.6 mEq/L (-2.0 to +3.0); Calcium, Ionized 1.08 mmol/L (1.12-1.30); Carboxyhemoglobin (COHb) 0.2 gm% (0.0-3.0); Hemoglobin (Hb) 10.1 g/dL (12.0-16.0); O2 Tension (PaO2) 156.4 mmHg (> 80.0); Potassium - ABG Lab 3.93 mmol/L (3.70-5.30); pH, Arterial 7.29 (7.35-7.45)
[2019-11-09 12:49] LABS: #Eosinphils 0.1 thou/uL (0.0-0.7); #Lymphocytes 1.5 thou/uL (1.20-3.40); #Monocytes 0.6 thou/uL (0.11-0.59); #Neutrophils 5.3 thou/uL (1.40-6.50); %Basophils 0.4 % (0.0-1.0); %Eosinophils 1.7 % (0.0-10.0); %Lymphocytes 19.4 % (21.0-51.0); %Monocytes 8.1 % (0.0-10.0); %Neutrophils 70.5 % (42.0-75.0); Hemoglobin 10.1 g/dL (12.0-16.0); MDiff Complete? YES; Mean Corpuscular Hemoglobin 29.1 pg (27.0-31.0); Mean Corpuscular Volume 90.7 fL (78.0-98.0); Mean Platelet Volume 7.9 fL (7.4-10.4); Platelet Count 112 thou/uL (130-400); Platelet Morphology Comment Appears Decreased; Polychromasia SLIGHT = 2-3 cells (100X) (0-2/hpf); RBC Distribution Width 14.7 % (11.5-14.5); Red Blood Cell (RBC) Count 3.46 mill/uL (4.20-5.40); White Blood Cell (WBC) Count 7.6 thou/uL (4.8-10.8)
[2019-11-09 12:50] LABS: INR-International Normal Ratio 1.4; PTT 35.5 SEC (22.9-36.1); Prothrombin Time 17.5 SEC (12.0-14.7)
--- NOTE | 2019-11-09 12:58 | RAD ---
PORTABLE CHEST 1 VIEW: DATE: 11/09/2019. TIME: 12:32 PM. HISTORY: Post open heart surgery. FINDINGS/IMPRESSION: There are changes of median sternotomy. The heart is enlarged. The aorta is tortuous. There are po stop changes of metallic hardware in the lower cervical spine. There is an endotracheal tube with ti p at the level of the clavicular heads. There is a left subclavian central line with tip in the proj ection of the cavoatrial junction. Left-sided chest tube is present. No lobar consolidation, pneumo thoraces, anibal pulmonary edema, or large effusions identified. POS: TPC
[2019-11-09 13:09] LABS: Anion Gap 12 mmol/L (10-20); BUN (Urea Nitrogen) 40 mg/dL (9.8-20.1); Calc. Creatinine Clearance 39 mL/min (70-130); Carbon Dioxide 21 mmol/L (23-31); Chloride 107 mmol/L (98-107); Estimated GFR-MDRD 36; Glucose 87 mg/dL (80-115); Sodium 136 mmol/L (136-145)
[2019-11-09 13:42] LABS: Puncture Site ALINE
[2019-11-09] MEDS ORDERED: Prevnar 13-Val Conj/PF 0.5 ML SYRINGE IM ONE (13:45)
[2019-11-09] MEDS ORDERED: FLU VACC TS2019-20(65YR UP)/PF 180 MCG/0.5 ML SYRINGE IM ONE (13:45)
[2019-11-09] MEDS: CEFAZOLIN 2 GM in Premix Bag 1 BAG IVPB SCH ×2 (14:18→21:15)
[2019-11-09] MEDS: Fentanyl 100 MCG/2 ML VIAL SLOW IVP PRN (14:45)
[2019-11-09 16:00] LABS: Actual Bicarbonate (HCO3a) 19.5 mEq/L (22-28); Base Excess (BEa) -6.2 mEq/L (-2.0 to +3.0); CO2 Tension 39.3 mmHg (35.0-45.0); Calcium, Ionized 1.07 mmol/L (1.12-1.30); Carboxyhemoglobin (COHb) 0.5 gm% (0.0-3.0); Hemoglobin (Hb) 10.4 g/dL (12.0-16.0); O2 Tension (PaO2) 180.3 mmHg (> 80.0); Potassium - ABG Lab 4.82 mmol/L (3.70-5.30); pH, Arterial 7.31 (7.35-7.45)
[2019-11-09 16:02] LABS: ALV-art Gradient 55.775 (0-20); Puncture Site ALINE
[2019-11-09 17:59] LABS: Hemoglobin 10.6 g/dL (12.0-16.0)
[2019-11-09 18:19] LABS: Potassium 5.1 mmol/L (3.5-5.1)
--- NOTE | 2019-11-09 18:43 | CON ---
DATE OF CONSULTATION: 11/09/2019 REASON FOR CONSULTATION: Status post CABG. HISTORY OF PRESENT ILLNESS: Ms. Shannon is a pleasant 69-year-old white female, who comes to the hospital for a planned CABG. She was found to have worsening cardiomyopathy, was taken to the catheterization lab, where she was found to have multivessel disease. She was recommended to undergo CABG with Dr. Robles, who performed earlier today. On my evaluation, she is intubated and coming off sedation. She is able to follow commands, but she remains intubated. is at bedside. He was updated. She is stable. Otherwise, requiring no pressors. PAST MEDICAL HISTORY: 1. Mild aortic valve insufficiency. 2. Type 2 diabetes. 3. Severe peripheral vascular disease. 4. Emphysema. 5. Neuropathy. 6. Sleep apnea. 7. B12 deficiency. PAST SURGICAL HISTORY: 1. Bariatric surgery in 2003 loosing large amount of weight. 2. Colonoscopy in 2010. 3. Hysterectomy. 4. Appendectomy. 5. Cholecystectomy. OUTPATIENT MEDICATIONS: 1. Atorvastatin. 2. Alprazolam. 3. Tresiba. 4. Metformin. 5. Protonix. 6. Escitalopram. 7. Aspirin. 8. Jardiance. 9. Lisinopril. 10. Iron supplements. 11. Amitiza. 12. Meloxicam. 13. Lasix. ALLERGIES: ADHESIVE TAPE. FAMILY HISTORY: Noncontributory. SOCIAL HISTORY: No alcohol, tobacco, or drugs. REVIEW OF SYSTEM: Unobtainable as the patient is intubated. PHYSICAL EXAMINATION: VITAL SIGNS: Temperature 97.1, pulse 58, respiratory rate 10, saturating 100% on 30% FiO2, and blood pressure 136/47. GENERAL: Awake, alert, but intubated. HEENT: Normocephalic and atraumatic. NECK: Supple. LUNGS: Coarse breath sounds. ABDOMEN: Soft. Positive bowel sounds. CARDIOVASCULAR: S1 and S2. Three-component rub. EXTREMITIES: 1+ edema. SKIN: Warm and dry. LABORATORY DATA: Laboratory work was reviewed. CBC, coags, ABGs, and chemistries were all reviewed. Creatinine is 1.45 today, which is better than what it had been before. ASSESSMENT: 1. Multivessel coronary artery disease. 2. Status post coronary artery bypass grafting x3. 3. Severe peripheral vascular disease, status post right subclavian bypass. 4. Severe bilateral renal artery stenosis. 5. Status post bilateral aortoiliac bypass grafting. 6. Occluded distal abdominal aorta and iliac vessels. 7. High-grade narrowing of right common femoral artery and left femoral artery. PLAN: 1. Continue supportive care. 2. Arterial lines at this time are stable and giving us a good measurements. We can trust those blood pressures at this time. 3. We will need aspirin, statin, beta nona, and JOSH inhibitor once blood pressure allows and she is more stable. Thank you for letting us to participate in the care of the patient. We will follow. Job ID: [id number]
[2019-11-09] MEDS: Famotidine/PF 20 mg/2ml Vial SLOW IVP SCH (19:33)
[2019-11-09] MEDS: Polyethylene Glycol OPTH DROP 15 ML BOT EA EYE SCH (20:10)
[2019-11-09] MEDS: Atorvastatin Calcium 40 MG TAB PO SCH (20:10)
[2019-11-09 20:15] LABS: Actual Bicarbonate (HCO3a) 16.9 mEq/L (22-28); Base Excess (BEa) -8.6 mEq/L (-2.0 to +3.0); CO2 Tension 34.9 mmHg (35.0-45.0); Calcium, Ionized 1.03 mmol/L (1.12-1.30); Carboxyhemoglobin (COHb) 0.5 gm% (0.0-3.0); Hemoglobin (Hb) 9.8 g/dL (12.0-16.0)
[2019-11-09 20:16] LABS: Puncture Site ALINE
[2019-11-09 20:17] LABS: ALV-art Gradient 40.275 (0-20)
[2019-11-09] MEDS ORDERED: Sodium Bicarb 50 MEQ/50 ML VIAL IVP SCH (20:45)
[2019-11-10 03:52] LABS: #Lymphocytes 0.9 thou/uL (1.20-3.40); #Monocytes 1.1 thou/uL (0.11-0.59); #Neutrophils 8.6 thou/uL (1.40-6.50); %Basophils 0.1 % (0.0-1.0); %Eosinophils 0.1 % (0.0-10.0); %Lymphocytes 8.4 % (21.0-51.0); %Monocytes 10.3 % (0.0-10.0); %Neutrophils 81.1 % (42.0-75.0); Mean Corpuscular HGB CONC 32.1 g/dL (32.0-36.0); Mean Corpuscular Hemoglobin 29.2 pg (27.0-31.0); Mean Corpuscular Volume 91.1 fL (78.0-98.0); Mean Platelet Volume 8.5 fL (7.4-10.4); Platelet Count 143 thou/uL (130-400); RBC Distribution Width 14.9 % (11.5-14.5); Red Blood Cell (RBC) Count 3.44 mill/uL (4.20-5.40); White Blood Cell (WBC) Count 10.6 thou/uL (4.8-10.8)
[2019-11-10 04:04] LABS: Anion Gap 17 mmol/L (10-20); BUN (Urea Nitrogen) 42 mg/dL (9.8-20.1); Calc. Creatinine Clearance 40 mL/min (70-130); Calcium 8.4 mg/dL (7.8-10.44); Carbon Dioxide 20 mmol/L (23-31); Chloride 106 mmol/L (98-107); Estimated GFR-MDRD 33; Glucose 138 mg/dL (80-115); Potassium 4.4 mmol/L (3.5-5.1); Sodium 139 mmol/L (136-145)
[2019-11-10] MEDS: CEFAZOLIN 2 GM in Premix Bag 1 BAG IVPB SCH (05:07)
--- NOTE | 2019-11-10 07:23 | OP ---
DATE OF PROCEDURE: 11/09/2019 PREOPERATIVE DIAGNOSES: 1. Coronary artery disease. 2. Peripheral vascular disease. PROCEDURES PERFORMED: Aortocoronary artery bypass graft x3, free left internal mammary artery good quality to a 2 mm left anterior descending, good quality saphenous vein to a 1.5 mm diagonal and a 1.5 to 2 mm obtuse marginal. There were no branches on the inferior surface of the heart graft. Additionally, she had ascending aortic to right subclavian artery bypass with a 6-mm Hemashield graft. ADMINISTRATIVE ASSISTANT FRONT DESK: Christophe. TRANSFUSION: None. DESCRIPTION OF PROCEDURE: After adequate anesthesia had been obtained, the patient was prepped and draped. Dr. Saeed did an endovascular vein harvest of the left greater saphenous vein while I performed a median sternotomy, right pleura was entered in one small area inferiorly and the left internal mammary artery was then mobilized. The patient was heparinized and the mammary divided distally and treated with intraluminal papaverine. She had a known high-grade or occlusion of the left subclavian artery, so it was divided proximally to be used as a free graft. Innominate vein was mobilized to allow a graft to pass underneath it and the innominate artery, proximal right carotid and proximal right subclavian were dissected out to the level of the internal mammary artery and the right vertebral artery. The recurrent laryngeal nerve was identified and avoided. Following aortic and right atrial cannulation, cardiopulmonary bypass was begun. Aorta was cross-clamped and a liter of cold blood cardioplegia given through the aortic root. Following which, the 3 distal anastomosis were completed. Cross-clamp was then removed. The subclavian artery was then clamped proximal and distal using a partial occluding clamp and arteriotomy performed, and a 6-mm Hemashield graft was anastomosed in an end-to-side fashion. Following which, the partial occluding clamp was removed from the subclavian artery. It was then placed on the aortic root and the Hemashield graft was then anastomosed to the right anterior lateral aspect of the aortic root with a running 5-0 Prolene suture. Following which, two venous anastomosis were performed through two punch holes on the left anterolateral side. To the cobb of the OM graft, the mammary artery was anastomosed. Following this, the patient was weaned from cardiopulmonary bypass. Cannula was removed and protamine given systemically. Aortic cannulation site was secured with a 4-0 Prolene suture. Mediastinal and bilateral pleural drains were then placed following which the sternum was reapproximated with #7 interrupted wires with vancomycin paste on the sternal edges, platelet-rich blood and platelet-poor plasma. Subcutaneous tissue was then closed with interrupted [id number] Vicryl, following which the skin was closed. The patient is to be taken to the ICU in guarded condition. It should be noted that a right femoral arterial line was placed under ultrasound guidance because of a known calcific blockage in both common femoral arteries. A left subclavian triple-lumen was placed also prior to beginning the procedure. Job ID: [id number]
[2019-11-10] MEDS: Fentanyl 100 MCG/2 ML VIAL SLOW IVP PRN (07:28)
[2019-11-10] MEDS ORDERED: Insulin Glargine 8 UNITS in Pre-Filled Syringe 1 EACH SC PRN (08:11)
--- NOTE | 2019-11-10 08:32 | RAD ---
Exam: Chest one view HISTORY:Status post open heart surgery Comparison: 11/09/2019 FINDINGS: Cardiac silhouette:Normal cardiac silhouette. There are sternotomy wires Lines and tubes: Interval removal of endotracheal tube. Stable left-sided vascular catheter. Stable r ight-sided chest tube. Aorta: Unremarkable Pulmonary vessels: Normal Costophrenic angles: Clear LUNGS: Hyperinflation with chronic lung parenchymal changes, predominantly in the lung bases. Pneumothorax: None Osseous abnormalities: None IMPRESSION: 1. Findings compatible with recent open heart surgery
[2019-11-10] MEDS ORDERED: Aspirin 325 MG TAB PO SCH (09:00)
[2019-11-10] MEDS: Lactated Ringer's 1,000 ML IV SCH ×2 (10:00→12:17)
[2019-11-10] MEDS: Insulin Regular 300 UNITS/3 ML VIAL SC PRN ×3 (10:08→20:24)
[2019-11-10] MEDS: traMADol HCl 50 MG TAB PO PRN ×3 (11:53→22:03)
[2019-11-10] MEDS: Polyethylene Glycol OPTH DROP 15 ML BOT EA EYE SCH ×3 (12:16→20:41)
--- NOTE | 2019-11-10 17:37 | CON ---
DATE OF CONSULTATION: 11/10/2019 HISTORY OF PRESENT ILLNESS: Heidy Shannon is a pleasant 69-year-old female. She has undergone coronary artery bypass grafting. She still has her chest tubes in place. She actually says she is feeling great. PAST MEDICAL HISTORY: Remarkable for; 1. Diabetes. 2. Peripheral vascular disease. 3. Peripheral neuropathy. 4. Smoking history. 5. History of sleep apnea. 6. History of bariatric surgery, which was a gastric bypass. She has recently undergone endoscopy with Dr. Morgan. 7. History of colonoscopy. 8. Status post hysterectomy. 9. History of an appendectomy. 10. History of cholecystectomy. MEDICATIONS: Have been reviewed. FAMILY HISTORY: Positive for vascular disease at young age. REVIEW OF SYSTEMS: Otherwise negative. She is a nonsmoker and nondrinker. Does not use drugs. PHYSICAL EXAMINATION: GENERAL: She is in no distress. VITAL SIGNS: Blood pressure is 126/55, heart rate 74, oximetry is in the high 90s on room air. HEENT: Pupils are equal. Sclerae are anicteric. She has a bandage on her sternum. LUNGS: Clear. HEART: Regular rhythm. S1 and S2 are normal. ABDOMEN: Soft and nontender. EXTREMITIES: Without clubbing, cyanosis, or edema. NEUROLOGIC: Nonfocal. LABORATORY DATA: White count 10.6, hemoglobin 10.0, platelets 143. Sodium 139, potassium 4.4, chloride 106, bicarb 20, BUN 42, creatinine 1.54. Creatinine was 1.45 yesterday. IMPRESSION: Status post coronary artery bypass grafting, doing well postextubation. I will follow the patient while she is in the Critical Care Unit. This is a 70-minute consult, 50% of the time spent on the unit coordinating care. Job ID: [id number] MTDD
[2019-11-10] MEDS: Atorvastatin Calcium 40 MG TAB PO SCH (20:24)
[2019-11-10] MEDS: Famotidine/PF 20 mg/2ml Vial SLOW IVP SCH (20:24)
[2019-11-11] MEDS: traMADol HCl 50 MG TAB PO PRN ×3 (04:54→18:35)
[2019-11-11 05:07] LABS: #Lymphocytes 1.9 thou/uL (1.20-3.40); #Monocytes 1.6 thou/uL (0.11-0.59); #Neutrophils 8.5 thou/uL (1.40-6.50); %Basophils 0.1 % (0.0-1.0); %Eosinophils 0.1 % (0.0-10.0); %Lymphocytes 15.6 % (21.0-51.0); %Monocytes 13.6 % (0.0-10.0); %Neutrophils 70.7 % (42.0-75.0); Hemoglobin 9.1 g/dL (12.0-16.0); Mean Corpuscular HGB CONC 33.1 g/dL (32.0-36.0); Mean Corpuscular Hemoglobin 29.7 pg (27.0-31.0); Mean Corpuscular Volume 89.6 fL (78.0-98.0); Mean Platelet Volume 7.8 fL (7.4-10.4); Platelet Count 163 thou/uL (130-400); RBC Distribution Width 14.8 % (11.5-14.5); Red Blood Cell (RBC) Count 3.05 mill/uL (4.20-5.40)
[2019-11-11 05:31] LABS: Anion Gap 12 mmol/L (10-20); BUN (Urea Nitrogen) 37 mg/dL (9.8-20.1); Calc. Creatinine Clearance 47 mL/min (70-130); Calcium 8.1 mg/dL (7.8-10.44); Carbon Dioxide 26 mmol/L (23-31); Chloride 101 mmol/L (98-107); Estimated GFR-MDRD 38; Glucose 113 mg/dL (80-115); Potassium 4.5 mmol/L (3.5-5.1); Sodium 134 mmol/L (136-145)
[2019-11-11] MEDS ORDERED: Mineral Oil ENEMA PR PRN (07:13)
[2019-11-11] MEDS ORDERED: Bisacodyl 5 MG TAB PO PRN (07:13)
[2019-11-11] MEDS ORDERED: Mag-Al 1200 mg/1200 mg/30 ML UDCUP PO PRN (07:13)
[2019-11-11] MEDS ORDERED: Fentanyl 100 MCG/2 ML VIAL SLOW IVP PRN (07:13)
[2019-11-11] MEDS ORDERED: Acetaminophen 325 MG TAB PO PRN (07:13)
[2019-11-11] MEDS ORDERED: Ondansetron PF 4 MG/2 ML Vial IVP PRN (07:13)
[2019-11-11] MEDS ORDERED: Bisacodyl 10 MG SUPP PR PRN (07:13)
[2019-11-11] MEDS ORDERED: Guaifenesin DM 100-10/5 ML UDCUP PO PRN (07:13)
[2019-11-11] MEDS ORDERED: Nitroglycerin 0.4 MG TAB (25 Tab Bottle) SL PRN (07:13)
[2019-11-11] MEDS ORDERED: HUMULIN R 100 UNITS in Sodium Chloride 0.9% 100 ML IVPB SCH (07:33)
[2019-11-11] MEDS ORDERED: Dextrose 5% in Water 1,000 ML IV PRN (07:33)
[2019-11-11] MEDS ORDERED: Dextrose 50% Abboject 50 ML SYRINGE SLOW IVP PRN (07:33)
[2019-11-11] MEDS: metFORMIN 500 MG TAB PO SCH (07:53)
--- NOTE | 2019-11-11 08:43 | RAD ---
CHEST 1 VIEW: COMPARISON: 11/10/2019. HISTORY: Status post open heart surgery. FINDINGS: There are sternotomy wires, vascular rings, and atherosclerosis of the aorta. Normal cardiac silhoue tte. Redemonstration of bilateral chest tubes and a left-sided vascular catheter. No pneumothorax. No os seous abnormalities. Stable changes in the lung bases. IMPRESSION: Findings compatible with recent open heart surgery. POS: CET
[2019-11-11] MEDS: Furosemide 40 MG TAB PO SCH (08:56)
[2019-11-11] MEDS: Aspirin 325 mg Enteric Coated Tablet PO SCH (08:56)
[2019-11-11] MEDS: Famotidine 20 MG TAB PO SCH (08:56)
[2019-11-11] MEDS: Escitalopram Oxalate 10 mg Tablet PO SCH (08:57)
[2019-11-11] MEDS: Polyethylene Glycol OPTH DROP 15 ML BOT EA EYE SCH ×2 (09:16→20:38)
[2019-11-11] MEDS: EMPAGLIFLOZIN 25 MG PO SCH (11:11)
[2019-11-11] MEDS: Insulin Regular 300 UNITS/3 ML VIAL SC PRN ×2 (11:51→20:38)
--- NOTE | 2019-11-11 12:00 | PRG ---
DATE OF SERVICE: 11/11/2019 SUBJECTIVE: Shiva is in no distress. Her chest tubes out. OBJECTIVE: VITAL SIGNS: She is afebrile, heart rate is in the 70s, blood pressure 125/63, respiratory rates in the teens to low 20s. LUNGS: Clear. HEART: Regular rhythm. ABDOMEN: Soft. LABORATORY DATA: White count 12, hemoglobin 9.1, and platelets 163. Sodium 134, potassium 4.5, chloride 101, bicarb 26, BUN 37, and creatinine 1.37 which is down from 1.54. IMPRESSION: 1. Status post coronary artery bypass grafting. 2. Transient renal insufficiency secondary to contrast combined with the surgery, improved. PLAN: She is ambulating in the [place] with minimal assistance. She will stable to transfer out of the critical care unit. We will sign off on transfer. Job ID: [id number]
[2019-11-11] MEDS: Atorvastatin Calcium 40 MG TAB PO SCH (20:37)
[2019-11-11] MEDS: ALPRAZolam 0.25 MG TAB PO PRN (20:43)
[2019-11-12 05:17] LABS: Anion Gap 12 mmol/L (10-20); BUN (Urea Nitrogen) 33 mg/dL (9.8-20.1); Calc. Creatinine Clearance 48 mL/min (70-130); Calcium 7.9 mg/dL (7.8-10.44); Carbon Dioxide 26 mmol/L (23-31); Chloride 98 mmol/L (98-107); Estimated GFR-MDRD 40; Glucose 108 mg/dL (80-115); Sodium 132 mmol/L (136-145)
--- NOTE | 2019-11-12 07:30 | PRG ---
DATE OF SERVICE: 11/12/2019 The patient has been afebrile. Her blood pressures range from 120 to 130, and her room air sats have been good. Her weight was recorded as 160 and compared to 167 two days ago and 148 on admission. Laboratory values includea creatinine of 1.32, which is stable compared to the prior day. Her sugars have been relatively well controlled on her current medical regimen. She is ambulating to the [place] and bathroom without difficulty and has no complaints. On exam, lungs are clear to auscultation. She does have a prominent bruise on the upper sternum that has been present since surgery. She has a strong palpable right radial pulse. She has no peripheral edema. PLAN: At this time, is continued ambulation. Diuresis as tolerated by renal function and probably home in the next 24 to 48 hours. Job ID: [id number]
[2019-11-12] MEDS: Famotidine 20 MG TAB PO SCH (08:36)
[2019-11-12] MEDS: Furosemide 40 MG TAB PO SCH (08:36)
[2019-11-12] MEDS: metFORMIN 500 MG TAB PO SCH (08:36)
[2019-11-12] MEDS: Aspirin 325 mg Enteric Coated Tablet PO SCH (08:36)
[2019-11-12] MEDS: EMPAGLIFLOZIN 25 MG PO SCH (08:37)
[2019-11-12] MEDS: Polyethylene Glycol OPTH DROP 15 ML BOT EA EYE SCH ×2 (08:38→21:57)
[2019-11-12] MEDS: Escitalopram Oxalate 10 mg Tablet PO SCH (08:38)
[2019-11-12] MEDS ORDERED: Amiodarone 150 MG, Admixture Fee 1 EACH in Dextrose 5% in Water 100 ML IVPB SCH (12:30)
[2019-11-12] MEDS: Amiodarone 450 MG, Admixture Fee 1 EACH in Dextrose 5% in Water 250 ML IVPB SCH (12:57)
[2019-11-12] MEDS ORDERED: Digoxin 0.5 MG/2 ML AMP ONE (14:36)
[2019-11-12] MEDS ORDERED: Sodium Chloride 0.9% 250 ML IV SCH (15:00)
[2019-11-12] MEDS ORDERED: Digoxin 0.5 MG/2 ML AMP SLOW IVP SCH (15:00)
[2019-11-12] MEDS: Insulin Regular 300 UNITS/3 ML VIAL SC PRN (17:40)
[2019-11-12] MEDS: ALPRAZolam 0.25 MG TAB PO PRN (21:57)
[2019-11-12] MEDS: Atorvastatin Calcium 40 MG TAB PO SCH (21:57)
[2019-11-13] MEDS: Amiodarone 450 MG, Admixture Fee 1 EACH in Dextrose 5% in Water 250 ML IVPB SCH (00:01)
[2019-11-13] MEDS: Famotidine 20 MG TAB PO SCH (08:30)
[2019-11-13] MEDS: Furosemide 40 MG TAB PO SCH (08:30)
[2019-11-13] MEDS: metFORMIN 500 MG TAB PO SCH (08:31)
[2019-11-13] MEDS: Amiodarone 200 MG TAB PO SCH ×2 (08:31→21:05)
[2019-11-13] MEDS: Escitalopram Oxalate 10 mg Tablet PO SCH (08:31)
[2019-11-13] MEDS: Polyethylene Glycol OPTH DROP 15 ML BOT EA EYE SCH ×2 (08:32→21:06)
[2019-11-13] MEDS: Aspirin 325 mg Enteric Coated Tablet PO SCH (08:35)
[2019-11-13] MEDS: EMPAGLIFLOZIN 25 MG PO SCH (08:36)
[2019-11-13] MEDS: traMADol HCl 50 MG TAB PO PRN (11:16)
[2019-11-13] MEDS: Atorvastatin Calcium 40 MG TAB PO SCH (21:05)
[2019-11-13] MEDS: ALPRAZolam 0.25 MG TAB PO PRN (21:05)
[2019-11-14 08:02] VITALS: TEMP 97.5
[2019-11-14] MEDS: metFORMIN 500 MG TAB PO SCH (09:07)
[2019-11-14] MEDS: Aspirin 325 mg Enteric Coated Tablet PO SCH (09:07)
[2019-11-14] MEDS: Furosemide 40 MG TAB PO SCH (09:07)
[2019-11-14] MEDS: Amiodarone 200 MG TAB PO SCH (09:07)
[2019-11-14] MEDS: Escitalopram Oxalate 10 mg Tablet PO SCH (09:07)
[2019-11-14] MEDS: Famotidine 20 MG TAB PO SCH (09:07)
[2019-11-14] MEDS: EMPAGLIFLOZIN 25 MG PO SCH (09:08)
[2019-11-14] MEDS: Polyethylene Glycol OPTH DROP 15 ML BOT EA EYE SCH (09:08)
[2019-11-14 09:48] VITALS: BP 123/59
== END 2019-11-14 10:05 | disposition home or self-care (01) | DRG 236 ==
LOC: SURG A 11-09 05:59 → CCU 11-09 12:23 → 2NO 11-11 18:51
PROVIDERS: ADMIT Thoracic Surgery (Cardiothoracic Vascular Surgery); ATTEND Thoracic Surgery (Cardiothoracic Vascular Surgery)
PROC: 02100Z9 Bypass Coronary Artery, One Artery from Left Internal Mammary, Open Approach (ICD-10-PCS; principal; 2019-11-09)
PROC: 021109W Bypass Coronary Artery, Two Arteries from Aorta with Autologous Venous Tissue, Open Approach (ICD-10-PCS; 2019-11-09)
PROC: 06BQ4ZZ Excision of Left Saphenous Vein, Percutaneous Endoscopic Approach (ICD-10-PCS; 2019-11-09)
PROC: 5A1221Z Performance of Cardiac Output, Continuous (ICD-10-PCS; 2019-11-09)
DX: I25.10 Atherosclerotic heart disease of native coronary artery without angina pectoris (principal); I74.5 Embolism and thrombosis of iliac artery; I74.19 Embolism and thrombosis of other parts of aorta; G47.30 Sleep apnea, unspecified; E11.51 Type 2 diabetes mellitus with diabetic peripheral angiopathy without gangrene; J43.9 Emphysema, unspecified; I70.1 Atherosclerosis of renal artery; I10 Essential (primary) hypertension; N28.9 Disorder of kidney and ureter, unspecified; E78.5 Hyperlipidemia, unspecified; Z98.84 Bariatric surgery status; Z95.828 Presence of other vascular implants and grafts; Z90.710 Acquired absence of both cervix and uterus; Z90.49 Acquired absence of other specified parts of digestive tract; Z87.891 Personal history of nicotine dependence; Z96.649 Presence of unspecified artificial hip joint; Z91.048 Other nonmedicinal substance allergy status; I42.9 Cardiomyopathy, unspecified; Z01.812 Encounter for preprocedural laboratory examination
CPT/HCPCS: 36415; 36416; 36430; 71045; 80048; 82805; 85025; 85610; 85730; 86850; 86900; 86901; 93005; 93010; 93798; 94002; 94150; J0282; J0360; J0690; J1100; J1160; J1642; J1644; J1815; J2001; J2250; J2405; J2440; J2704; J2720; J3010; J3370; J3475; J3480; J3490; J7070; P9045; S0017; S0028

== ENCOUNTER 2019-11-08 16:02 | Outpatient (CLI) | payer MEDICARE, BC ==
[2019-11-08 17:42] LABS: Anion Gap 15 mmol/L (10-20); BUN (Urea Nitrogen) 44 mg/dL (9.8-20.1); Calc. Creatinine Clearance 0 mL/min (70-130); Calcium 8.5 mg/dL (7.8-10.44); Carbon Dioxide 25 mmol/L (23-31); Chloride 99 mmol/L (98-107); Estimated GFR-MDRD 25; Glucose 111 mg/dL (80-115); Potassium 4.6 mmol/L (3.5-5.1); Sodium 134 mmol/L (136-145)
== END 2019-11-08 16:03 | disposition home or self-care (01) ==
LOC: LABBT 16:02
PROVIDERS: ATTEND Thoracic Surgery (Cardiothoracic Vascular Surgery)
DX: Z01.812 Encounter for preprocedural laboratory examination (principal); I25.10 Atherosclerotic heart disease of native coronary artery without angina pectoris
CPT/HCPCS: 80048; 86850; 86900; 86901

== ENCOUNTER 2020-01-12 10:44 | Outpatient (CLI) | payer MEDICARE, BC ==
[2020-01-12] MEDS ORDERED: Magnevist 469MG/ML 20 ML VIAL ONE (11:26)
--- NOTE | 2020-01-12 12:01 | MRI ---
MRI cervical spine noncontrast: DATE: 01/12/2020 HISTORY: 69-year-old female with frequent falls are 29.6 COMPARISON: 11/07/2017 FINDINGS: There are new ACDF hardware with anterior metallic plate and screws at C4, C5, C6, and C7, and metall ic interbody cages at the C4-5, C5-6, and C6-7 disc spaces. Vertebral body heights are maintained. Cervical spinal cord is normal in signal. Moderate right facet DJD at C7-T1. Mild to moderate left fa cet DJD at C7-T1. Cervical spinal canal is diffusely small in caliber on a congenital basis due to developmentally short pedicles. This is exacerbated by cervical spondylosis as described below. Thick ened posterior longitudinal ligament from C1-2 through C4. C1-2: No high-grade central stenosis. C2-3:. No high-grade central spinal canal stenosis or high-grade neural foraminal stenosis. C3-4: Small central disc focal protrusion or disc-osteophyte complex indents the ventral aspect of th ecal sac, abutting the ventral surface of spinal cord. Moderate central spinal canal stenosis. Small bilateral uncinate process osteophytes. Mild to moderate right neural foraminal stenosis. No le ft neural foraminal stenosis. No significant interval change. C4-5: Small to moderate-sized bilateral uncinate process osteophytes, right greater than left. Severe right neural foraminal stenosis. Mild left neural foraminal stenosis. No significant interval change. C5-6: Moderate size bilateral uncinate process osteophytes. Severe right neural foraminal stenosis. M oderate left neural foraminal stenosis. Broad-based disc-osteophytic bar complex, right side greater than left. Moderate to severe central spinal canal stenosis. No major interval change. C6-7: 0.6 x 0.6 x 0.8 cm nerve root sleeve cyst in the right neural foramen. Moderate size bilateral uncinate process osteophytes. Mild to moderate right bony neural foraminal stenosis. Moderate stenosis of proximal left neural foramen. No major interval change. C7-T1: No significant central spinal canal stenosis. Mild to moderate bilateral neural foraminal sten osis. No major interval change. IMPRESSION: 1. Status post anterior cervical discectomy and fusion at C4-5-6-7. 2. Developmentally small caliber spinal canal exacerbated by cervical spondylosis. 3. High-grade neural foraminal stenosis and high-grade central spinal canal stenosis has not signific antly changed since 11/07/2017..
--- NOTE | 2020-01-12 13:46 | MRI ---
MRI thoracic spine noncontrast: DATE: 01/12/2020 HISTORY: 69-year-old female with frequent falls and bilateral leg weakness COMPARISON: None FINDINGS: Pot Fluxer sagittal sequence demonstrates a mass between the anterior upper mediastinum and anterior lower neck. See separate report of CT of cervical spine today. This mass is obscured by saturation band on all other pulse sequences. Vertebral body heights are maintained. Patchy T2 hyperintense bone marrow lesions are visualized at s everal levels in the thoracic vertebral bodies. The largest is at T4, followed by T9, and the smaller ones at T7, T10, and T11. None of these demonstrate hyperintense signal or hypointense signal on T1-weighted images. They probably represent hemangiomas of bone (venous malformations of bone) with atypical signal characteristics. The thoracic spinal cord is normal in size and signal. No centr al spinal canal stenosis or high-grade neural foraminal stenosis at any level. No major pathology of perivertebral spaces. No syrinx. No cord impingement. No high-grade spondylosis. IMPRESSION: 1. No central spinal canal stenosis or cord impingement at any level. 2. Numerous focal bone marrow lesions at multiple levels in the thoracic vertebral bodies. Nonspecifi c, but favored to represent hemangiomas of bone with atypical signal characteristics. 3. Otherwise negative.
--- NOTE | 2020-01-12 14:43 | MRI ---
MRI LUMBAR SPINE WITH AND WITHOUT CONTRAST: DATE: 01/12/2020 HISTORY: 69-year-old female with low back pain, bilateral lower extremity weakness, and frequent falls. COMPARISON: 02/16/2018 TECHNIQUE: Multiple sequences obtained in axial and sagittal planes, pre and post IV injection of gadolinium-bas ed contrast agent. FINDINGS: Multiple signal abnormalities at multiple levels within the thecal sac on multiple sequences represen t CSF turbulent flow artifact, and should not be mistaken for masses. 5 lumbar-type vertebrae. Exaggerated lordosis of lower lumbar spine. Mild levoscoliosis of upper lumb ar spine. Conus medullaris terminates at L1. T12-L1:Old depression of the midline superior endplate of L1 due to combination of old compression fr acture and large upper endplate L1 Schmorl's node. Unchanged. Levoscoliosis associated with high-grade right-sided disc space narrowing. Prominent central and bilateral paracentral broad-based disc-osteophyte complex indents the ventral aspect of thecal sac superimposed tiny focal central disc herniation. Mild central spinal canal stenosis. Mild right neural foraminal stenosis. No left ne ural foraminal stenosis. No significant interval change.. L1-2:Diffuse disc bulge. Superimposed small central disc extrusion with superior migration a short di stance. Moderate left facet DJD mild to moderate central spinal canal stenosis. Posterior epidural fat pad. Moderate thecal sac stenosis. Mild to moderate bilateral neural foraminal stenosis. No signi ficant interval change. Slight retrolisthesis of L1 on L2.. L2-3:Retrolisthesis of L2 on L3. New midline laminectomy defect relieves the previously demonstrated high-grade central spinal canal stenosis. In addition to diffuse disc bulge, there is a left paracentral chronic focal disc herniation-extrusion which has not significantly changed, and it inden ts the left side of the thecal sac. Thin rim of enhancing granulation tissue around this left-sided disc herniation. Moderate right neural foraminal stenosis. Moderate to severe left neural foraminal s tenosis. The neural foraminal stenosis has bilaterally worsened. Bone marrow edema involving the left L3 pedicle appears worse now. This is contiguous with what is probably a large hemangioma of bon e in the left side of the L3 vertebral body with atypical T1 signal characteristics. L3-4:Retrolisthesis of L3 on L4. New midline laminectomy defect relieves the previously demonstrated severe central spinal canal stenosis. In addition to the previously demonstrated diffuse disc bulge, there is a new or larger right paracentral and right lateral focal disc herniation which inden ts and effaces the right side of the thecal sac new finding of bilateral facet joint effusions in the moderate bilateral facet DJD. New finding of a 7 x 7 x 4 mm synovial cyst indenting the right maría e of the thecal sac. Overall degree of thecal sac stenosis is mild to moderate. There is now severe right neural foraminal stenosis. Moderate to severe left neural foraminal stenosis. L4-5:High-grade bilateral facet DJD. Moderate right neural foraminal stenosis. Mild to moderate left neural foraminal stenosis. No high-grade central spinal canal stenosis. Lateral recess stenosis bilaterally. No significant interval change. Disc height maintained. L5-S1:Severe left facet DJD. Mild left neural foraminal stenosis. No right neural foraminal stenosis. No central spinal canal stenosis. Focal central disc-osteophyte complex abuts the left S1 nerve root at the lateral recess. It was present previously, but now it appears to slightly displace the le ft S1 nerve root IMPRESSION: 1) lumbar spondylosis with multilevel degenerative disc disease and facet osteoarthrosis. 2) status post midline laminectomies at L2-3 and L3-4, relieving the previously severe central spinal canal stenoses at those levels. 3) at L3-4, there is interval worsening of now severe right neural foraminal stenosis, impinging on t he exiting right L3 nerve root. 4) at L3-4, there are new findings of right paracentral and right lateral disc herniation and right-s ided synovial cyst. 5) at L2-3, there is worsening of left neural foraminal stenosis. 6) at L5-S1, the pre-existing central disc-osteophyte complex may be impinging on the left S1 nerve r oot to a greater degree than before. 7) old L1 compression fracture with focal levoscoliosis centered at T12-L1, unchanged
--- NOTE | 2020-01-12 15:39 | RAD ---
THREE VIEWS OF THE THORACIC SPINE: 01/12/20 COMPARISON: Lumbar spine radiographs 01/12/20. HISTORY: Frequent falls with bilateral leg weakness. FINDINGS: Three views of the thoracic spine shows slight scoliotic curvature of the spine. The vertebral bodies of the thoracic spine demonstrate normal height and alignment without fracture or subluxation. Small osteophytes and intervertebral disc space narrowing are seen throughout the thoracic spine. Vascular calcifications are seen in the aorta. The patient is status post CABG. There is wedge compre ssion deformity of the L1 vertebral body. IMPRESSION: No evidence of acute osseous abnormality of the thoracic spine. POS: EAA
--- NOTE | 2020-01-12 15:42 | RAD ---
CERVICAL SPINE SERIES FIVE VIEWS INCLUDING FLEXION AND EXTENSION: 01/12/20 HISTORY: Frequent falls postop. Bones appear demineralized. The patient has undergone an anterior cervical fusion which extends from C4 to C7. No abnormal motion on flexion or extension views. IMPRESSION: Postop changes of the spine. POS: C
--- NOTE | 2020-01-12 15:49 | RAD ---
FOUR VIEWS OF THE LUMBOSACRAL SPINE: 01/12/20 COMPARISON: MRI of the lumbar spine 01/12/20 and 02/16/18 and lumbar spine radiographs 02/16/18. FINDINGS: Four views of the lumbosacral spine shows stable wedge compression deformity of the L1 vertebral body with approximately 10-25% anterior height loss. Osteophytes are seen surrounding the intervertebral disc in the upper lumbar spine. There is stable grade I retrolisthesis of L2 on L3. Posterior facet a rthrosis is seen in the lower lumbosacral spine. Vascular calcifications are seen in the aorta. There is slight scoliotic curvature of the spine. The patient has had laminectomies in the mid lumbar spine. Alignment is unchanged with flexion and extens ion. IMPRESSION: Stable postsurgical and degenerative changes of the lumbar spine as above. POS: LILIANA
--- NOTE | 2020-01-12 17:37 | CT ---
CT OF THE CERVICAL SPINE WITHOUT CONTRAST: 01/12/20 COMPARISON: CT angiogram of the neck, 03/17/18. HISTORY: Cervical pain. TECHNIQUE: Axial CT imaging is obtained at 2 mm intervals from the skull base through the upper thoracic spine w ithout contrast. Coronal and sagittal reformatted imaging obtained. FINDINGS: Evaluation for central canal and/or neural foraminal stenosis is limited on routine CT examination. T here is a partially visualized rim calcified mass within the superior mediastinum measuring at least 3.3 cm in transverse dimension. This was present on prior CT angiogram of the neck performed 03/17/18. This was also present on prior cervical spine radiographs performed 01/28/18. This lesion is nonspecif ic and not fully imaged on this exam. Scattered atherosclerotic calcification is seen involving the carotid system bilaterally, left greate r than right. There is prominent calcification at the origin of the left subclavian artery and there are scattered atherosclerotic calcifications of bilateral vertebral arteries. There is moderate degenerative change at the atlantoaxial interspace. The craniocervical junction, th e dens, and the C1-2 articulation demonstrate no acute findings. Anterior discectomy and fusion hardware is present at the C4-5/C5-6/C6-7 level. C2-3: No osseous cause of significant central canal or neural foraminal stenosis. C3-4: Mild disc bulge with partial effacement of intrathecal sac and mild central canal stenosis. Mil d facet and uncovertebral osteophyte formation on the right. No osseous cause of significant central canal or neural foraminal stenosis. C4-5: Facet and uncovertebral osteophyte formation noted on the right. Mild/moderate right neural for aminal stenosis. No osseous cause of significant central canal or left neural foraminal stenosis. C5-6: Mild bilateral facet and uncovertebral osteophyte formation. There is a small posterior osteoph yte in the right paracentral region with an associated small right paracentral disc protrusion. Proba ble mild central canal stenosis noted on the right. Mild bilateral neural foraminal stenosis. C6-7: No osseous cause of significant central canal or neural foraminal stenosis. C7-T1: No osseous cause of significant central canal or neural foraminal stenosis. No acute fracture or dislocation. No worrisome lytic or blastic bone lesion. IMPRESSION: 1. Degenerative and postoperative change of the cervical spine as detailed above. 2. Nonspecific rim calcified superior mediastinal mass, incompletely imaged on this examination. This does not appear significantly changed when compared to 2018 CT angiogram of the neck. 3. Atherosclerotic disease. 1. POS: [facility]
== END 2020-01-12 10:45 | disposition home or self-care (01) ==
LOC: MRI 10:44
PROVIDERS: ATTEND Surgery
DX: M54.5 Low back pain (principal); M62.81 Muscle weakness (generalized); R29.6 Repeated falls; M47.812 Spondylosis without myelopathy or radiculopathy, cervical region; I65.23 Occlusion and stenosis of bilateral carotid arteries; M47.816 Spondylosis without myelopathy or radiculopathy, lumbar region; M48.061 Spinal stenosis, lumbar region without neurogenic claudication; M89.9 Disorder of bone, unspecified; Z98.1 Arthrodesis status
CPT/HCPCS: 72050; 72072; 72110; 72125; 72141; 72146; 72158; 82565

== ENCOUNTER 2020-01-13 14:34 | Inpatient (IN) | payer MEDICARE, BC ==
[2020-01-13] MEDS ORDERED: Aspirin 325 MG TAB ONE ×2 (16:19)
--- NOTE | 2020-01-13 16:19 | RAD ---
THREE VIEWS LEFT WRIST: COMPARISON: None. HISTORY: Fall with deformity of the wrist. FINDINGS: Three views of the left wrist show an impacted fracture of the distal radial metaphysis. There may b e an area of intraarticular extension of the fracture near the distal radial ulnar joint. An associa antonina ulnar styloid process fracture may also be present. Dorsal soft tissue swelling is seen. No dis location is seen. IMPRESSION: Distal radius and associated ulnar styloid fracture. POS: EAA
[2020-01-13] MEDS ORDERED: Dextrose 50% Abboject 50 ML SYRINGE SLOW IVP PRN (16:48)
[2020-01-13] MEDS ORDERED: Dextrose 5% in Water 1,000 ML IV PRN (16:48)
[2020-01-13] MEDS ORDERED: HumaLOG 300 UNITS/3 ML VIAL SC PRN (16:48)
[2020-01-13] MEDS ORDERED: Morphine 4 MG/ML VIAL SLOW IVP PRN (16:48)
[2020-01-13] MEDS ORDERED: Ondansetron PF 4 MG/2 ML Vial IVP PRN (16:48)
[2020-01-13] MEDS ORDERED: traMADol HCl 50 MG TAB PO PRN (16:55)
[2020-01-13 17:26] LABS: #Basophils 0.1 thou/uL (0.0-0.2); #Eosinphils 0.3 thou/uL (0.0-0.7); #Lymphocytes 2.2 thou/uL (1.20-3.40); #Monocytes 0.7 thou/uL (0.11-0.59); #Neutrophils 4.7 thou/uL (1.40-6.50); %Basophils 0.7 % (0.0-1.0); %Eosinophils 3.4 % (0.0-10.0); %Lymphocytes 27.7 % (21.0-51.0); %Monocytes 8.9 % (0.0-10.0); %Neutrophils 59.3 % (42.0-75.0); Hemoglobin 12.3 g/dL (12.0-16.0); Mean Corpuscular HGB CONC 32.1 g/dL (32.0-36.0); Mean Corpuscular Hemoglobin 30.5 pg (27.0-31.0); Mean Corpuscular Volume 94.8 fL (78.0-98.0); Mean Platelet Volume 6.9 fL (7.4-10.4); Platelet Count 285 thou/uL (130-400); RBC Distribution Width 14.3 % (11.5-14.5); Red Blood Cell (RBC) Count 4.04 mill/uL (4.20-5.40); White Blood Cell (WBC) Count 7.8 thou/uL (4.8-10.8)
[2020-01-13 17:34] LABS: Prothrombin Time 12.7 sec (12.0-14.7)
[2020-01-13 17:45] LABS: Anion Gap 15 mmol/L (10-20); BUN (Urea Nitrogen) 37 mg/dL (9.8-20.1); Calc. Creatinine Clearance 0 mL/min (70-130); Calcium 9.3 mg/dL (7.8-10.44); Carbon Dioxide 27 mmol/L (23-31); Chloride 97 mmol/L (98-107); Estimated GFR-MDRD 34; Glucose 112 mg/dL (80-115); Magnesium 1.8 mg/dL (1.6-2.6); Phosphorus 3.8 mg/dL (2.3-4.7); Potassium 4.3 mmol/L (3.5-5.1); Sodium 135 mmol/L (136-145)
[2020-01-13] MEDS ORDERED: CEFAZOLIN 2 GM in Premix Bag 1 BAG IVPB SCH (18:00)
[2020-01-13] MEDS ORDERED: Magnesium 2 GM/50 ML 2 GM in Premix Bag 1 BAG IVPB SCH (18:00)
--- NOTE | 2020-01-13 18:52 | HP ---
REQUESTING PHYSICIAN: Dr. Tejada. CONSULTING PHYSICIAN: Dr. Bloom. HISTORY OF PRESENT ILLNESS: Ms. Shannon is a 69-year-old female, who presented to the ED for evaluation of left wrist pain after the fall at home. The patient reports she has been experiencing multiple falls recently due to weakness from her bilateral lower extremity. Earlier today, the patient fell on her left wrist, complained of left wrist pain and deformity in which she came to the ED to seek for medical attention. The patient denied loss of consciousness. Denied hit her head or any other part of her body. No other injury to be reported. REVIEW OF SYSTEMS: Noncontributory except per HPI. PAST MEDICAL HISTORY: Coronary artery disease with diabetes and blood pressure, hypertension, multiple perivascular disease. PAST SURGICAL HISTORY: Cardiovascular bypass October 2019 with four vessels, right carotid endarterectomy 2 years ago. The patient has a schedule of femoral stenting this coming Friday with Dr. Robles. SOCIAL HISTORY: Smoking, quit smoking for 20 years. Drinking, quit drinking for few months. Drug use, denies drug use. PHYSICAL EXAMINATION: GENERAL: Currently, patient is lying in bed comfortable with no acute respiratory distress. The patient is alert, awake. GCS 15. VITAL SIGNS: Temperature 98.4, heart rate 65, respiratory rate 16, O2 saturation 98% on room air, blood pressure 146/80. HEENT: Atraumatic. No bruising, nontender to palpation. LUNGS: Clear bilaterally. CHEST: Atraumatic. No bruising. Nontender to palpation. HEART: Regular rate and rhythm. ABDOMEN: Atraumatic. No bruising. Nontender to palpation. Bowel sounds active. Pelvis is stable. EXTREMITIES: Left wrist deformity, obvious deformity, extremely tender to palpation. Limited range of motion. Left finger neurovascularly intact. Bilateral lower extremity neurovascularly intact. NEUROLOGIC: No focal neurology deficits. LABORATORY DATA: Initial workup showed sodium 135, potassium 4.3, creatinine 1.5, glucose 112. White count 7.8, hemoglobin 12.3, platelet count 285. IMAGING: X-ray of the left wrist showed distal radius and associated ulnar styloid fracture. ASSESSMENT: 1. Status post mechanical fall. 2. Close left wrist fracture and neurovascularly intact. 3. History of coronary artery disease, CABG October 4. History of multiple peripheral vascular disease, await for bilateral femoral stenting this coming [place] 5. Diabetes type 2. 6. Hypertension. 7. Lumbar herniated disk with bilateral lower extremity neuropathy. PLAN: The patient will be admitted to [place] [id number] for pain control. Initiate nonpharmacological DVT prophylaxis, gastritis prophylaxis. Orthopedic, Dr. Bloom plans to take the patient to the OR tomorrow for ORIF of left wrist fracture. We will coordinate with Dr. Robles and Dr. Kendall for evaluation of patient's vascular disease. The patient will be on aggressive sliding scale for diabetes treatment. We will resume on home medication. Dr. Nobles was notified. Job ID: [id number] MTDD
--- NOTE | 2020-01-13 18:56 | CON ---
DATE OF CONSULTATION: 01/13/2020 REASON FOR CONSULTATION: Preoperative evaluation. HISTORY OF PRESENT ILLNESS: Ms. Shannon is a very pleasant 69-year-old white female, who comes to the hospital for a fall. She fell down and broke her left wrist and is needing surgery for the wrist tomorrow. Cardiology is being consulted as she recently had bypass surgery and she has an ischemic cardiomyopathy. Ms. Shannon actually had bypass in the beginning of October, it has been almost two months to date. She denies any chest pain, tightness, pressure, or shortness of breath. She fell because her legs have been weak. She has a lump on her back and this is being worked up and may need some sort of lower back surgery for this. She also has PVD and was scheduled to have intervention of her legs on Friday by Dr. Robles. She currently denies any anginal symptoms. PAST MEDICAL HISTORY: 1. Mild aortic valve insufficiency. 2. Type 2 diabetes. 3. Severe PVD. 4. Emphysema. 5. Neuropathy. 6. Sleep apnea. 7. B12 deficiency. PAST SURGICAL HISTORY: 1. Bariatric surgery in 2003 loosing large amount of weight. 2. Colonoscopy. 3. Hysterectomy. 4. Appendectomy. 5. Cholecystectomy. OUTPATIENT MEDICATIONS: 1. Amiodarone 200 mg daily, which she only took for one month. 2. Pantoprazole 40 mg a day. 3. Aspirin 81 a day. 4. Metformin 1000 mg b.i.d. 5. Vitamin B12. 6. Xanax p.r.n. 7. Lexapro. 8. Iron. 9. Atorvastatin. 10. Jardiance. 11. Vitamin D3. 12. Furosemide. 13. Tresiba. ALLERGIES: ADHESIVE. FAMILY HISTORY: Noncontributory. SOCIAL HISTORY: No alcohol, tobacco, or drugs. REVIEW OF SYSTEMS: A 12-point review of systems was done and was all negative unless stated in the history of present illness. PHYSICAL EXAMINATION: VITAL SIGNS: Temperature 98.2, pulse 78, respiratory rate 16, saturating 98% on room air. GENERAL: Awake, alert, and oriented x3. No distress. HEENT: Normocephalic, atraumatic. NECK: Supple. LUNGS: Clear. CARDIOVASCULAR: S1 and S2. No S3 or S4. There is a grade 2/6 systolic murmur at the right upper sternal border. ABDOMEN: Soft. Positive bowel sounds. EXTREMITIES: No edema. SKIN: Warm and dry. LABORATORY DATA: Laboratory work was reviewed. CBC with a white count of 7, hemoglobin of 12, hematocrit 38, and platelet count of 285. INR was 1.0. Chemistries were unremarkable except for creatinine of 1.5, which is actually close to her baseline. Wrist x-ray was reviewed. Distal radius with ulnar styloid fracture. ASSESSMENT: 1. Left wrist fracture. 2. Ischemic cardiomyopathy, last EF was before her bypass and was about 40% to 45%. 3. Ischemic cardiomyopathy. 4. Status post coronary artery bypass grafting. 5. Peripheral vascular disease. PLAN: 1. Intermediate risk for intermediate risk procedure. Currently, she has been revascularized and even though she had mild LV dysfunction, I would expect this to be either the same or even better in the setting of being revascularized recently. I do not think we need any other testing done before surgery. I think she may proceed with the understood risk caveats. 2. Thank you for letting us to participate in the care of your patient. We will follow up. Job ID: [id number]
[2020-01-13] MEDS: Acetaminophen 500 MG TAB PO SCH ×2 (19:15→23:59)
[2020-01-13] MEDS: traMADol HCl 50 MG TAB PO PRN (19:45)
[2020-01-13] MEDS: Senokot S 8.6-50 MG TAB PO SCH (19:45)
[2020-01-13] MEDS: Ascorbic Acid 500 mg Chewable Tablet PO SCH (19:45)
[2020-01-13] MEDS: Atorvastatin Calcium 40 MG TAB PO SCH (19:58)
[2020-01-13] MEDS ORDERED: Famotidine/PF 20 mg/2ml Vial SLOW IVP SCH (21:00)
[2020-01-13] MEDS: Morphine 2 MG/ML SYRINGE SLOW IVP PRN (21:17)
[2020-01-13 21:34] VITALS: BMI 23.8
[2020-01-13] MEDS: Insulin Regular 300 UNITS/3 ML VIAL SC PRN (22:43)
[2020-01-13] MEDS: Cyclobenzaprine 10 MG TAB PO PRN (22:45)
[2020-01-13] MEDS: Sodium Chloride 0.9% 1,000 ML IV SCH (22:46)
[2020-01-13 23:27] LABS: Bacteria/HPF 3+ HPF (None Seen); Bilirubin Negative (Negative); Blood, Urine Negative (Negative); Clarity Clear (Clear); Glucose, Urine (Dipstick) Greater than 1000 mg/dL (Negative); Leukocyte 25 Leu/uL (Negative); Nitrite 1+ (Negative); Protein, Urine (Dipstick) Negative (Neg-Trace); RBC/HPF 0-3 HPF (0-3); Renal Epithelial 0-3 HPF (None Seen); Squamous Epithelial 0-3 HPF (0-3); Urobilinogen Normal mg/dL (Less than 2)
[2020-01-13] MEDS ORDERED: ALPRAZolam 0.5 MG TAB PO PRN (23:35)
--- NOTE | 2020-01-14 02:21 | PRG ---
DATE OF SERVICE: 01/14/2020 SUBJECTIVE: The patient was admitted today, status post ground level fall, when she sustained left distal radius and ulnar fracture. The patient was admitted to undergo surgery in the morning. The patient has an extensive cardiac history and was evaluated by Dr. Kendall, who states that the patient is at intermediate risk and she is aware of her risk, but agrees to still continue forward with surgery. The patient is also pending surgery by Dr. Robles for peripheral vascular disease, and he will be notified of her admission. She wished to undergo surgery on Friday with him. Otherwise, the patient is doing well. She is tolerating a diet. Her pain is controlled. She is currently scheduled to be n.p.o. after midnight. PHYSICAL EXAMINATION: VITAL SIGNS: Stable. The patient is afebrile. GENERAL: The patient is resting comfortably in bed. She is awake, alert, conversant. En Coma Scale is 15. LUNGS: Respirations are nonlabored. EXTREMITIES: Neurovascularly intact x4. Her left upper extremity has a clean, dry, and intact splint in place. ASSESSMENT AND PLAN: 1. Status post ground level fall. 2. Left distal radius and ulnar styloid fracture. 3. History of coronary artery disease, peripheral vascular disease, diabetes, and hypertension. 4. Urinary tract infection, present on admission, uncomplicated. PLAN: Plan will be to continue supportive care, n.p.o. after midnight, surgery tomorrow, and re-evaluate postoperatively. Start Macrobid for urinary tract infection. Job ID: [id number] MTDD
[2020-01-14 05:36] LABS: Anion Gap 14 mmol/L (10-20); BUN (Urea Nitrogen) 41 mg/dL (9.8-20.1); Calc. Creatinine Clearance 40 mL/min (70-130); Calcium 8.4 mg/dL (7.8-10.44); Carbon Dioxide 27 mmol/L (23-31); Chloride 100 mmol/L (98-107); Estimated GFR-MDRD 39; Glucose 70 mg/dL (80-115); Magnesium 2.2 mg/dL (1.6-2.6); Potassium 3.7 mmol/L (3.5-5.1); Sodium 137 mmol/L (136-145)
[2020-01-14] MEDS: Acetaminophen 500 MG TAB PO SCH ×3 (05:48→18:39)
[2020-01-14 05:57] LABS: CKMB 0.9 ng/mL (0-6.6)
[2020-01-14] MEDS: Morphine 2 MG/ML SYRINGE SLOW IVP PRN (06:05)
[2020-01-14] MEDS ORDERED: Potassium Chloride 20 MEQ in Premix Bag 1 BAG IVPB SCH (07:30)
--- NOTE | 2020-01-14 07:46 | CON ---
DATE OF CONSULTATION: This is Greg Escobar PA-C dictating a report for Hernan Bloom MD. We were asked by ER and Trauma to see the patient. HISTORY OF PRESENT ILLNESS: The patient was in her normal state of health, 69 years old, has a myriad of health conditions, but she has also been falling recently, fell and sustained a fractured left wrist. No other injuries. She used to work here in [employer] in the past. She is in good spirits. No other injuries again as stated, she is able to wiggle her fingers and has good sensations. PAST MEDICAL HISTORY: Positive for; 1. Coronary artery disease. 2. Diabetes. 3. . 4. Peripheral vascular disease. PAST SURGICAL HISTORY: 1. Bypass. 2. Carotid endarterectomy. She will have a femoral artery surgery with Dr. Robles this upcoming Friday. SOCIAL HISTORY: Nonsmoker for 20 years. No alcohol or nicotine products either, and again, she is retired from our facility. REVIEW OF SYSTEMS: For this visit, just left upper extremity pain. Denies any chest pain or shortness of breath. No bowel or bladder problems. ALLERGIES: ADHESIVES. CURRENT MEDICATIONS: 1. Baby aspirin. 2. Vitamin D. 3. Cyanocobalamin. 4. Tresiba. 5. Iron. 6. Glucophage. 7. Xanax. 8. Cordarone. 9. Lipitor. 10. Jardiance. 11. Lexapro. 12. Lisinopril. 13. Protonix. 14. Systane eye drops. PHYSICAL EXAMINATION: GENERAL: Well-nourished, well-developed female, very pleasant, in no acute distress. Speech clear. Affect pleasant. Answers questions appropriately. She is alert and oriented x3. HEENT: Face is symmetric. Tongue in midline. NECK: Supple. Trachea in midline. EXTREMITIES: Upper extremities, equal size, shape, and symmetry. Normal bulk and tone. Left upper extremity has a forearm splint in place, but she has good sensations and movement of her digits on the left upper extremity. HEART: Regular rhythm and rate. LUNGS: Clear to auscultation in all lobes. ASSESSMENT: 1. Left wrist fracture, status post falls. 2. Peripheral vascular disease. Procedure on Friday with Dr. Robles. PLAN: We went over the risks and benefits of doing a plating of the left wrist. She understands risks and benefits. Her questions and concerns have been addressed. She is amenable to go forth with surgery. We talked to Trauma, the plan also is for her to stay over the weekend and after the procedure on Friday. Job ID: [id number]
[2020-01-14] MEDS: Potassium Chloride 20 MEQ in Premix Bag 1 BAG IVPB SCH ×2 (07:49→08:50)
[2020-01-14] MEDS: cefTRIAXone\\ROCEPHIN 1 GM in Sodium Chloride 0.9% 100 ML IVPB SCH (08:08)
[2020-01-14] MEDS: Ascorbic Acid 500 mg Chewable Tablet PO SCH ×2 (08:30→20:10)
[2020-01-14] MEDS: Empagliflozin 25 MG TAB PO SCH (08:30)
[2020-01-14] MEDS: Escitalopram Oxalate 10 mg Tablet PO SCH (08:30)
[2020-01-14] MEDS: Ferrous Sulfate 325 MG TAB PO SCH (08:30)
[2020-01-14] MEDS: Lisinopril 10 MG TAB PO SCH (08:30)
[2020-01-14] MEDS: Amiodarone 200 MG TAB PO SCH ×2 (08:30→20:09)
[2020-01-14] MEDS: Polyethylene Glycol OPTH DROP 15 ML BOT EA EYE SCH (08:31)
[2020-01-14] MEDS: Senokot S 8.6-50 MG TAB PO SCH ×2 (08:31→20:09)
[2020-01-14] MEDS: Polyethylene Glycol 3350 17 GM Packet PO SCH (08:31)
[2020-01-14] MEDS ORDERED: Nitrofurantoin Monohyd/M-Cryst 100 MG CAP PO SCH (09:00)
[2020-01-14] MEDS ORDERED: Fentanyl 100 MCG/2 ML VIAL ONE ×2 (09:58→10:06)
[2020-01-14] MEDS ORDERED: Midazolam HCl 2 mg/2 ml Vial ONE (09:58)
--- NOTE | 2020-01-14 12:20 | OP ---
DATE OF PROCEDURE: 01/14/2020 PREOPERATIVE DIAGNOSIS: Left extra-articular distal radius fracture (two fragments). POSTOPERATIVE DIAGNOSIS: Left extra-articular distal radius fracture (two fragments). PROCEDURE PERFORMED: Open reduction and internal fixation of left distal radius. ANESTHESIA: General. GAMBLING CASHIER: Liv Howard PA-C. TOURNIQUET TIME: Approximately 35 minutes at 250 mmHg. IMPLANTS: Synthes 2.4 mm variable angle LCP volar distal radial plate. COMPLICATIONS: None. DRAINS: None. SPECIMEN: None. OUTCOME: Near-anatomic alignment. INDICATIONS FOR PROCEDURE: The patient is a 69-year-old lady, status post ground level fall landing on an outstretched left arm. In the emergency room, she was found to have a dinner fork deformity as well as x-ray that showed a displaced distal radius fracture with dorsal tilt, loss of radial length, and dorsal comminution. After discussion with the patient including risks and benefits, we decided to proceed with open reduction and internal fixation. Informed consent has been obtained. I believe all questions answered. DESCRIPTION OF PROCEDURE: The patient was brought to the operating room and a time-out performed, followed by induction of general anesthesia. Next, the patient was positioned supine on the OR table with the left arm on a hand board. Next, a sterile prep and drape was performed of the left upper extremity. The limb was then exsanguinated with Esmarch bandage, tourniquet was inflated to 250 mmHg. A volar radial skin incision was made after the skin was sharply incised. Dissection was carried down bluntly between the brachioradialis and the tendon of the flexor carpi radialis. The neurovascular bundle was identified and reflected radially. Next, the pronator quadratus was identified, released off the radial border of the distal radius and reflected to the midline. The fracture was reduced under direct visualization and then a volar plate applied. A 2.7 mm cortical screw was placed proximal to the fracture to affix the plate to the distal radius and then AP and lateral C-arm images were obtained to ensure appropriate position of the plate on the distal radius. Once done, a total of four 2.4 mm locking screws were placed in the horizontal limb of the plate capturing the distal fragment. Once completed, two additional 2.7 mm cortical screws were applied proximally. At the completion of this, AP and lateral C-arm images were obtained that showed episcopal of radial inclination, volar tilt, and radial length. The wound was then irrigated and closed in layers with 0 Vicryl deep followed by 2-0 Vicryl and then nylon for the skin. A Xeroform gauze and a volar fiberglass splint were then applied to the wrist. Tourniquet was let down. The patient was transferred to recovery room in stable condition. There were no complications. The patient tolerated the procedure well. Job ID: [id number]
[2020-01-14] MEDS ORDERED: Ondansetron PF 4 MG/2 ML Vial ONE (12:25)
[2020-01-14] MEDS ORDERED: Bupivacaine HCl 0.5%/Epinephrine 1:200,000/PF 30 ml Vial ONE (12:25)
[2020-01-14] MEDS ORDERED: EPHEDRINE 25 MG/5 ML SYRINGE ONE (12:25)
[2020-01-14] MEDS ORDERED: PROPOFOL 200 MG/20 ML VIAL ONE (12:25)
[2020-01-14] MEDS: Sodium Chloride 0.9% 1,000 ML IV SCH (12:31)
[2020-01-14] MEDS ORDERED: Aspirin 81 mg Enteric Coated Tablet PO SCH (13:30)
--- NOTE | 2020-01-14 14:44 | RAD ---
TWO FLUOROSCOPIC SPOT IMAGES OF THE LEFT WRIST: 01/14/20 INDICATIONS: ORIF of left wrist. COMPARISON: Prior left wrist radiograph dated 01/13/20. FINDINGS: Submitted intraoperative fluoroscopic images demonstrate interval reduction and internal fixation wit h a low profile plate and screws construct situated along the volar aspect of the distal radius. The instrumentation projects in the expected position. Fracture alignment is near anatomic. There is imp roved alignment of the displaced ulnar styloid process fracture. Total fluoroscopic time was 4.6 seco nds. Total exposure was 0.12 mGy. IMPRESSION: Interval open reduction internal fixation of the comminuted intra-articular distal radial fracture wi th improved alignment of the mildly displaced ulnar styloid process fracture. POS: BH
--- NOTE | 2020-01-14 15:28 | PRG ---
DATE OF SERVICE: 01/14/2020 This is a 50-minute initial hospital visit note, in which 50 minutes were spent reviewing the imaging record, evaluation, examination of patient, formulation of plan. Greater than 50% of time was spent in counseling on Heidy Shannon. Ms. Shannon is a very pleasant 69-year-old woman. She is well known to me. She had done well following neck and back surgery, although over the last month, she has had her legs giving out on her. I recommended full spinal imaging. Coincidentally, she also is scheduled to have stenting with Dr. Robles this upcoming Friday. Unfortunately, she fell yesterday, and her weakness and pain involve bilateral lower extremities. This fall occurred, and we were able to get full spinal imaging. She has satisfactory decompression of the cervical spine. It does not appear as if she is completely fused at the bottom of her construct, but otherwise there is no worrisome neural element compression of the cervical or thoracic spine. In the lumbar, however, she has recurrence of stenosis involving the left L1-L2 segment, the left L2-L3 segment with herniated disk, and bilateral L3-L4 segments with a right synovial cyst at L3-L4, and disk extrusion at the right-sided L3-L4. She has asymptomatic narrowing in the left S1 lateral recess at L5-S1. On exam, she is alert and appropriate. She has just returned from the operating room for fixation of her left wrist, that was done to treat a fracture from a fall yesterday. On exam, she is alert and appropriate. She has no iliopsoas weakness bilaterally, but does have mild right knee extension weakness. Otherwise, her left quadriceps function is intact along with good dorsiflexion, EHL function, and plantar flexion. She has asked us to look at a spot of swelling on her back, and this is actually a spinous process. Her lumbar spine MRI demonstrates no worrisome STIR imaging findings; however, she does have an L1 anterior middle column fracture that is old. This is why she has prominence of the spinous process. I have recommended surgery as the patient has weakness and has been falling. She also has pain in the buttocks and posterior thighs. This is not going to the calves. The surgery I would recommend is a left L1-L2 hemilaminotomy and foraminotomy, left L2-L3 revision hemilaminotomy and diskectomy, bilateral revision hemilaminotomy and diskectomy at L3-L4 with a right L3-L4 synovial cyst resection. I think this will help maximize her outcome and reduce her pain. Following that, I suspect a day or two in the hospital, and then we can get her to inpatient rehab. Of note, we have initiated a baby aspirin for cardiac protection, and I have discussed her care with Dr. Robles, and he is in agreement with this plan Goals, indications, risks, and complications were discussed in detail regarding the above-mentioned surgery. The patient understands and wishes to proceed 1. Low back and recurrent leg pain and weakness with lumbar stenosis. 2. Lumbar disk extrusion. 3. Lumbar synovial cyst. Job ID: [id number]
--- NOTE | 2020-01-14 18:22 | PRG ---
DATE OF SERVICE: 01/14/2020 SUBJECTIVE: Ms. Shannno is a 69-year-old female, who was status post ground level fall. She sustained left wrist fracture. She was admitted to the hospital for pain control, awaiting for surgery of left wrist fracture. The patient has extensive history of coronary artery disease and peripheral vascular disease, awaiting for stenting with Dr. Robles this coming Friday and the patient also has lumbar herniated disk, surgery by Dr. Thompson. The patient reports no pain, no chest pain or pressure. The patient was consulted with Dr. Kendall. Dr. Kendall is okay for the patient to go to the OR today. Dr. Thompson is consulted on lumbar herniated disk and bilateral lower extremity myelopathy. Dr. Thompson will take the patient to the OR on Friday for laminectomy, and Dr. Thompson talked to Dr. Robles. Dr. Robles agreed to postpone femoral stenting bilaterally for the next four weeks. The patient reports pain is well controlled. Her vital signs have been stable. Her urine is adequate. OBJECTIVE: GENERAL: Currently, the patient is lying in bed comfortably with no acute respiratory distress. VITAL SIGNS: Temperature 97.7, heart rate 56, respiratory rate 16, O2 saturation 97% on room air, and blood pressure 129/63. LUNGS: Clear bilaterally. HEART: Regular rate and rhythm. ABDOMEN: Soft, nondistended. EXTREMITIES: Neurovascularly intact x4. NEUROLOGY: No new neurological deficits. ASSESSMENT: 1. Status post ground level fall. 2. Left wrist fracture. 3. Coronary artery disease, history of bypass two months ago. 4. Peripheral vascular disease, awaiting for femoral stenting bilaterally. 5. Lumbar herniated disk with lumbar stenosis and lumbar disk extrusion. PLAN: Plan will be to continue supportive care, continue pain control. The patient will go to the OR with Dr. Elias today for left wrist fracture fixation. The patient will go to the OR with Dr. Thompson on Friday for diskectomy and laminectomy for lumbar disk herniation. The patient will be put on n.p.o. at midnight on January 16. Postop, the patient will need to work with Physical Therapy and Occupational Therapy. Anticipate placement in rehabilitation facility. Job ID: [id number]
[2020-01-14] MEDS: CEFAZOLIN 2 GM in Premix Bag 1 BAG IVPB SCH (18:39)
[2020-01-14] MEDS: Insulin Regular 300 UNITS/3 ML VIAL SC PRN (18:40)
[2020-01-14] MEDS: Atorvastatin Calcium 40 MG TAB PO SCH (20:10)
[2020-01-14] MEDS: Acetaminophen 500 MG TAB PO PRN (20:11)
--- NOTE | 2020-01-15 00:47 | CON ---
DATE OF CONSULTATION: 01/14/2020 Requested by Trauma. HISTORY OF PRESENT ILLNESS: Ms. Shannon is a 69-year-old female, who states that she has fallen three times in the past week. Yesterday, her legs started to shake and when she fell this time, she wound up breaking her left wrist. She states that her legs shake and get very weak with no indication or warning when and the result is her falling. States on November 08, she had open-heart surgery and was scheduled to have stents on 01/[address] Robles, but unfortunately this has been rescheduled. She does have a history of neck and back surgery. HOME MEDICATIONS: 1. Aspirin 81 mg. 2. Vitamin D3 1000 international units. 3. Vitamin B12 100 mcg subcu. 4. Insulin Tresiba 5 units subcu daily. 5. Iron 65 mg p.o. b.i.d. 6. Metformin 1000 mg p.o. b.i.d. 7. Alprazolam 0.5 mg p.o. at night. 8. Amiodarone 200 mg p.o. b.i.d. 9. Atorvastatin 40 mg p.o. at night. 10. Jardiance 25 mg p.o. daily. 11. Lexapro 10 mg p.o. in the morning. 12. Lisinopril 10 mg p.o. daily. 13. Protonix 40 mg p.o. b.i.d. SURGICAL HISTORY: Cholecystectomy, gastric bypass in 2003, heart bypass surgery , colonoscopy 2010, hysterectomy, cardiac cath 10/28/2019, CABG 11/09/2019, 11/2017 C4-C7 ACDF, 11/2018 Lami L2-L4. ALLERGIES: ADHESIVE. PAST MEDICAL HISTORY: Diabetes, type 2; hypertension; severe aortic valve insufficiency; severe peripheral vascular disease; emphysema; previous tobacco abuse; neuropathy; sleep apnea; and B12 deficiency. FAMILY HISTORY: Father , diagnosed with diabetes, hypertension, heart disease, and cancer. Mother, alive, heart disease. SOCIAL HISTORY: Nonsmoker. Previous tobacco use. Denies alcohol or illicit drugs. HOSPITALIZATIONS: Per surgical history. REVIEW OF SYSTEMS: CONSTITUTION: Denies fevers or chills. EAR, NOSE, AND THROAT: Denies change in vision or hearing. CARDIAC: Denies chest pain, shortness breath, or diaphoresis. PULMONARY: Denies shortness of breath, cough, or hemoptysis. GI: Denies abdominal pain, nausea, vomiting, diarrhea, change in stool formation or consistency. : Denies trouble with urination, frequency of urination, or bloody urine. SKIN: Denies skin rash, bruising, bleeding, or skin masses. MUSCULOSKELETAL: As per history of present illness. NEUROLOGIC: As per history of present illness. PSYCHOLOGIC: Denies anxiety, depression, or behavior changes. PHYSICAL EXAMINATION: VITAL SIGNS: Blood pressure 129/63, heart rate 60, and temperature 97.7. HEENT: Pupils are equal. Extraocular movements are intact. NECK: Soft, supple. No masses are noted. Range of motion is intact and nonpainful. NEUROLOGIC: Awake, alert, and oriented x3. Memory, attention, and fund of knowledge normal. Cranial nerves grossly intact. Lower extremity: good strength in her iliopsoas, hamstring, anterior tib, EHL, and gastrocnemius. Quadriceps R>L weakness. There is no area of dermatomal sensory loss. The reflexes are symmetric. The toes are downgoing. Gait: Observed her mobilizing with assistance. LABORATORY DATA: White blood cells 7.8 and platelets 285. INR 1.0. Sodium 137. MRI of the lumbar spine shows multilevel spondylosis, L3-4 shows a severe right neural foraminal stenosis with impingement on the right and left nerve root. L2 -3 shows a left neural foraminal stenosis. L3-4 shows a right-sided synovial cyst. L5-S1 shows osteophyte complex impinging on the left S1 nerve root. PLAN: 1. On , she is planning to have lower back surgery. Left L1-L2 hemilaminectomy and foraminotomy. Left L2-3 revision hemilaminectomy and diskectomy. Bilateral revision hemilaminectomy and diskectomy at L3-4 with a right L3-4 synovial cyst resection. 2. She plans to have inpatient rehab after her surgery. 3. Anesthesia clearance. 4. Informed consent. We discussed the indications risks, benefits, alternatives , and expected results from surgery. The risks discussed included, but were not limited to, bleeding, infection, CSF leak, nerve damage, weakness, incontinence, cauda equina injury, paralysis, ventilator dependency, wheelchair dependency, loss of vision, cardiopulmonary complications of anesthesia, arachnoiditis, or . Long-term complications discussed included but were not limited to spinal instability and future surgery. She understands the risks and is willing to proceed. Job ID: [id number] [facility]
[2020-01-15] MEDS: CEFAZOLIN 2 GM in Premix Bag 1 BAG IVPB SCH ×2 (01:58→09:56)
--- NOTE | 2020-01-15 03:35 | PRG ---
DATE OF SERVICE: 01/15/2020 SUBJECTIVE: The patient is hospital day 2, postop day 0 from a ground level fall when she sustained a left distal radius and ulna fracture. Today, she underwent open reduction and internal fixation of same. She tolerated that procedure well. She unfortunately also was awaiting a vascular procedure by Dr. Robles and was undergoing evaluation for a likely herniated disk or retropulsed disk with Dr. Thompson. The patient tolerated her orthopedic surgery today and after discussion with the Neurosurgical Team and Cardiovascular Team, it was felt that the patient would undergo her neurosurgical procedure on Friday. Today, she is tolerating a diet. Her pain is controlled. Her only complaint tonight was a headache. This was relieved with Tylenol. She did work with Physical and Occupational Therapy today. PHYSICAL EXAMINATION: VITAL SIGNS: Stable. The patient is afebrile. GENERAL: The patient is resting comfortably in bed. She was asleep at the time of visit, I did not awaken her as the nurses said that she just fell asleep. She appeared comfortable. Her respirations appear nonlabored. Her postop dressing and splint on her left upper extremity was clean, dry, and intact. ASSESSMENT AND PLAN: 1. Status post ground level fall. 2. Status post open reduction and internal fixation of left radius and ulna fracture. 3. History of coronary artery disease with recent bypass surgery, 2 months ago. 4. History of peripheral vascular disease, awaiting femoral stenting bilaterally by Dr. Robles. 5. Lumbar herniated disk with lumbar stenosis and lumbar disk extrusion, awaiting surgical intervention by Dr. Thompson currently planned for Friday. Plan will be to continue supportive care. Encourage physical and occupational therapy. Make n.p.o. after midnight Friday night and begin placement afterwards. Job ID: [id number]
[2020-01-15] MEDS: Acetaminophen 500 MG TAB PO PRN ×3 (05:30→20:09)
[2020-01-15] MEDS: Cyclobenzaprine 10 MG TAB PO PRN ×2 (05:30→13:06)
[2020-01-15] MEDS: Insulin Regular 300 UNITS/3 ML VIAL SC PRN ×3 (05:32→20:16)
[2020-01-15] MEDS: cefTRIAXone\\ROCEPHIN 1 GM in Sodium Chloride 0.9% 100 ML IVPB SCH (07:58)
[2020-01-15] MEDS: Amiodarone 200 MG TAB PO SCH ×2 (08:06→20:16)
[2020-01-15] MEDS: Aspirin 81 mg Enteric Coated Tablet PO SCH (08:08)
[2020-01-15] MEDS: Ascorbic Acid 500 mg Chewable Tablet PO SCH ×2 (08:08→20:09)
[2020-01-15] MEDS: Escitalopram Oxalate 10 mg Tablet PO SCH (08:08)
[2020-01-15] MEDS: Nitrofurantoin Monohyd/M-Cryst 100 MG CAP PO SCH ×2 (08:08→20:09)
[2020-01-15] MEDS: Polyethylene Glycol 3350 17 GM Packet PO SCH (08:08)
[2020-01-15] MEDS: Ferrous Sulfate 325 MG TAB PO SCH (08:08)
[2020-01-15] MEDS: Lisinopril 10 MG TAB PO SCH (08:08)
[2020-01-15] MEDS: Senokot S 8.6-50 MG TAB PO SCH ×2 (08:08→20:08)
[2020-01-15] MEDS: Empagliflozin 25 MG TAB PO SCH (08:09)
[2020-01-15] MEDS: Insulin Glargine 5 UNITS in Pre-Filled Syringe 1 EACH SC SCH (08:09)
[2020-01-15 08:26] LABS: Anion Gap 14 mmol/L (10-20); BUN (Urea Nitrogen) 32 mg/dL (9.8-20.1); Calc. Creatinine Clearance 36 mL/min (70-130); Calcium 8.1 mg/dL (7.8-10.44); Carbon Dioxide 24 mmol/L (23-31); Chloride 102 mmol/L (98-107); Estimated GFR-MDRD 34; Glucose 103 mg/dL (80-115); Magnesium 1.9 mg/dL (1.6-2.6); Phosphorus 3.6 mg/dL (2.3-4.7); Potassium 4.4 mmol/L (3.5-5.1); Sodium 136 mmol/L (136-145)
[2020-01-15] MEDS ORDERED: INSULIN DEGLUDEC 5 UNIT SQ SCH (09:00)
[2020-01-15] MEDS: traMADol HCl 50 MG TAB PO PRN ×2 (09:55→17:21)
[2020-01-15] MEDS: Polyethylene Glycol OPTH DROP 15 ML BOT EA EYE SCH (13:07)
[2020-01-15] MEDS: Morphine 2 MG/ML SYRINGE SLOW IVP PRN (13:43)
--- NOTE | 2020-01-15 16:07 | PRG ---
DATE OF SERVICE: 01/15/2020 SUBJECTIVE: Ms. Shannon is a 69-year-old female, status post ground level fall, sustained left wrist fracture, and she underwent ORIF of left wrist fracture yesterday. The patient tolerated the procedure well. Postop, the patient is doing good. Pain is well controlled. She tolerated with her regular diet. Her vital signs had been stable. Her urine is adequate. She is able to work with Physical Therapy and Occupational Therapy. OBJECTIVE: GENERAL: Currently, the patient is lying in bed comfortable with no acute respiratory distress. VITAL SIGNS: Temperature 98.3, heart rate 76, respiratory rate 16, O2 saturation 96% on room air, blood pressure 160/83. LUNGS: Clear bilaterally. HEART: Regular rate and rhythm. ABDOMEN: Soft and nondistended. EXTREMITIES: Neurovascularly intact x4. Postop dressing clean, dry, intact. NEUROLOGIC: No focal neurologic deficits. ASSESSMENT: 1. Status post ground level fall. 2. Left wrist fracture, status post open reduction and internal fixation of left wrist fracture. 3. Coronary artery disease, history of coronary artery bypass grafting with four vessels. 4. Peripheral vascular disease. Await for bilateral femoral stenting with Dr. Robles. 5. Lumbar herniated disk with lumbar stenosis and lumbar disk extrusion. Await for surgery with Dr. Thompson on Friday. PLAN: Continue supportive care. Continue pain control. Continue DVT prophylaxis. The patient will be put on n.p.o. at midnight on Friday. Await for surgery with Dr. Thompson. Postop, the patient will need to work with Physical Therapy and Occupational Therapy. Anticipate placement in rehabilitation facility. Job ID: [id number]
[2020-01-15] MEDS: Atorvastatin Calcium 40 MG TAB PO SCH (20:09)
[2020-01-15] MEDS: Heparin 5,000 UNITS/ML VIAL SC SCH (20:09)
[2020-01-15] MEDS ORDERED: ALPRAZolam 0.5 MG TAB PO SCH (21:00)
--- NOTE | 2020-01-16 01:17 | PRG ---
DATE OF SERVICE: SUBJECTIVE: The patient is currently on the surgical floor. She is hospital day #3, postop day 1, status post ground level fall when she sustained a left distal radius and ulna fracture. She underwent open reduction and internal fixation of the same and tolerated that procedure well. The patient is working with physical and occupational therapy. She is tolerating a diet. Her pain is controlled. She is currently awaiting surgical intervention for a likely herniated disk or retropulsed disk with Dr. Thompson. PHYSICAL EXAMINATION: VITAL SIGNS: Stable. The patient is afebrile. GENERAL: The patient is resting comfortably in bed. She was asleep when I entered the room, but did awaken briefly for my exam. RESPIRATIONS: Nonlabored. She appeared comfortable. EXTREMITIES: Her postop dressing is clean, dry, and intact. She denied any pain at this time. ASSESSMENT AND PLAN: 1. Status post ground level fall. 2. Status post open reduction and internal fixation of left radius and ulna fracture. 3. History of coronary artery disease with recent bypass surgery, 2 months ago. 4. History of peripheral vascular disease, awaiting femoral stenting bilaterally by Dr. Robles. 5. Lumbar herniated disk with lumbar stenosis and lumbar disk extrusion, awaiting surgical intervention by Dr. Thompson, currently planned for Friday. PLAN: Plan will be to continue supportive care. Encourage physical and occupational therapy. The patient will be made n.p.o. after midnight tomorrow night and postoperatively, we will discuss placement. Job ID: [id number]
[2020-01-16] MEDS: Cyclobenzaprine 10 MG TAB PO PRN ×2 (04:23→20:45)
[2020-01-16] MEDS: Acetaminophen 500 MG TAB PO PRN ×2 (04:24→11:18)
[2020-01-16] MEDS: hydrALAZINE 20 MG/ML VIAL SLOW IVP PRN (05:51)
[2020-01-16 05:53] LABS: Anion Gap 12 mmol/L (10-20); BUN (Urea Nitrogen) 24 mg/dL (9.8-20.1); Calc. Creatinine Clearance 39 mL/min (70-130); Calcium 8.4 mg/dL (7.8-10.44); Carbon Dioxide 24 mmol/L (23-31); Chloride 103 mmol/L (98-107); Estimated GFR-MDRD 38; Glucose 90 mg/dL (80-115); Magnesium 1.9 mg/dL (1.6-2.6); Phosphorus 3.7 mg/dL (2.3-4.7); Sodium 135 mmol/L (136-145)
[2020-01-16 06:18] LABS: #Basophils 0.1 thou/uL (0.0-0.2); #Eosinphils 0.4 thou/uL (0.0-0.7); #Lymphocytes 1.9 thou/uL (1.20-3.40); #Monocytes 0.9 thou/uL (0.11-0.59); #Neutrophils 4.2 thou/uL (1.40-6.50); %Basophils 0.9 % (0.0-1.0); %Eosinophils 5.7 % (0.0-10.0); %Monocytes 11.7 % (0.0-10.0); %Neutrophils 55.8 % (42.0-75.0); Hemoglobin 11.5 g/dL (12.0-16.0); Mean Corpuscular HGB CONC 31.4 g/dL (32.0-36.0); Mean Corpuscular Hemoglobin 30.1 pg (27.0-31.0); Mean Corpuscular Volume 95.8 fL (78.0-98.0); Mean Platelet Volume 7.1 fL (7.4-10.4); Platelet Count 242 thou/uL (130-400); RBC Distribution Width 14.4 % (11.5-14.5); Red Blood Cell (RBC) Count 3.82 mill/uL (4.20-5.40); White Blood Cell (WBC) Count 7.5 thou/uL (4.8-10.8)
[2020-01-16] MEDS ORDERED: Magnesium 2 GM/50 ML 2 GM in Premix Bag 1 BAG IVPB SCH (07:30)
[2020-01-16] MEDS: Heparin 5,000 UNITS/ML VIAL SC SCH ×2 (09:31→20:50)
[2020-01-16] MEDS: Insulin Glargine 5 UNITS in Pre-Filled Syringe 1 EACH SC SCH (09:32)
[2020-01-16] MEDS: Senokot S 8.6-50 MG TAB PO SCH ×2 (09:33→20:45)
[2020-01-16] MEDS: Amiodarone 200 MG TAB PO SCH ×2 (09:33→20:45)
[2020-01-16] MEDS: Nitrofurantoin Monohyd/M-Cryst 100 MG CAP PO SCH ×2 (09:33→20:46)
[2020-01-16] MEDS: Ferrous Sulfate 325 MG TAB PO SCH (09:33)
[2020-01-16] MEDS: Ascorbic Acid 500 mg Chewable Tablet PO SCH ×2 (09:33→20:45)
[2020-01-16] MEDS: Aspirin 81 mg Enteric Coated Tablet PO SCH (09:33)
[2020-01-16] MEDS: Lisinopril 10 MG TAB PO SCH (09:33)
[2020-01-16] MEDS: Empagliflozin 25 MG TAB PO SCH (09:33)
[2020-01-16] MEDS: Escitalopram Oxalate 10 mg Tablet PO SCH (09:34)
[2020-01-16] MEDS: Polyethylene Glycol 3350 17 GM Packet PO SCH (09:34)
[2020-01-16] MEDS: Polyethylene Glycol OPTH DROP 15 ML BOT EA EYE SCH (09:35)
[2020-01-16] MEDS: traMADol HCl 50 MG TAB PO PRN (09:38)
[2020-01-16] MEDS: Insulin Regular 300 UNITS/3 ML VIAL SC PRN ×2 (13:12→17:50)
--- NOTE | 2020-01-16 19:23 | PRG ---
DATE OF SERVICE: 01/16/2020 SUBJECTIVE: Ms. Shannon is a 69-year-old female, status post ground level fall. She sustained left wrist fracture. She underwent ORIF of the wrist fracture. On postoperative day 2, the patient reports pain is well controlled. She is able to work with physical therapy and occupational therapy. She tolerated her regular diet. Her vital signs have been stable and her urine is adequate. OBJECTIVE: GENERAL: Currently, the patient lying in bed comfortable with no acute respiratory distress. VITAL SIGNS: Temperature 97.9, heart rate 87, respiratory rate 18, O2 saturation 99% on room air, and blood pressure 114/69. LUNGS: Clear bilaterally. HEART: Regular rate and rhythm. ABDOMEN: Soft, nondistended. EXTREMITIES: Neurovascularly intact x4. NEUROLOGIC: No focal neurology deficits. ASSESSMENT: 1. Status post ground level fall. 2. Left wrist fracture, status post open reduction internal fixation of left rib fracture. 3. History of coronary artery disease, coronary artery bypass grafting with four vessel, stable. 4. Peripheral vascular disease. Await for bilateral femur stenting with Dr. Robles in 4 weeks. 5. Lumbar herniated disk with lumbar stenosis and lumbar disk extrusion. Await for surgery with Dr. Thompson on Friday. PLAN: Continue supportive care. Continue pain control. Continue DVT prophylaxis. The patient will be on n.p.o. at midnight and await for surgery with Dr. Thompson tomorrow. Postoperatively, the patient will need to work with physical therapy and occupational therapy. Anticipate placement in rehabilitation facility. Job ID: [id number] MTDD
[2020-01-16] MEDS: Atorvastatin Calcium 40 MG TAB PO SCH (20:46)
[2020-01-17] MEDS: Sodium Chloride 0.9% 1,000 ML IV SCH ×2 (00:09→15:15)
--- NOTE | 2020-01-17 02:36 | PRG ---
DATE OF SERVICE: 01/17/2020 SUBJECTIVE: The patient is currently on the surgical floor. She is hospital day 4, postop day 2, status post ground level fall when she sustained a left distal radius and ulna fracture. The patient has been working with Physical and Occupational Therapy. Her pain is controlled and she is tolerating a diet. She is currently planned for surgery with Dr. Thompson tomorrow and will be made n.p.o. after midnight. PHYSICAL EXAMINATION: VITAL SIGNS: Stable. The patient is afebrile. GENERAL: The patient is resting comfortably in bed. She is awake, alert, conversant, and is looking forward to undergo her procedure with Dr. Thompson and she will then await surgery in [address] Robles. The patient relays that she understands that she will be going to rehab in between those 2 procedures. LUNGS: Clear to auscultation with good inspiratory and expiratory effort. HEART: Regular rate and rhythm. ABDOMEN: Soft, nontender with active bowel sounds. EXTREMITIES: Neurovascularly intact x4. Her splint is clean, dry, and intact. ASSESSMENT: 1. Status post ground level fall, hospital day 4. 2. Status post open reduction internal fixation of left radius and ulna fracture, postop day 2. 3. History of coronary artery bypass. 4. History of peripheral vascular disease, awaiting femoral stenting bilaterally by Dr. Robles, currently planned for in 4 weeks. 5. Lumbar herniated disk with lumbar stenosis and lumbar disk extrusion, currently awaiting surgery in the morning with Dr. Thompson. PLAN: Plan will be to make the patient n.p.o. after midnight, IV pain control, pulmonary toilet, gastritis and mechanical VTE prophylaxis. Postoperatively, we will begin physical and occupational therapy and begin working on placement. Job ID: [id number]
[2020-01-17] MEDS: hydrALAZINE 20 MG/ML VIAL SLOW IVP PRN (04:34)
[2020-01-17 05:14] LABS: #Basophils 0.1 thou/uL (0.0-0.2); #Eosinphils 0.4 thou/uL (0.0-0.7); #Lymphocytes 1.9 thou/uL (1.20-3.40); #Monocytes 0.6 thou/uL (0.11-0.59); #Neutrophils 3.4 thou/uL (1.40-6.50); %Eosinophils 6.6 % (0.0-10.0); %Lymphocytes 29.8 % (21.0-51.0); %Monocytes 9.1 % (0.0-10.0); %Neutrophils 53.5 % (42.0-75.0); Hemoglobin 11.2 g/dL (12.0-16.0); Mean Corpuscular Hemoglobin 29.8 pg (27.0-31.0); Mean Platelet Volume 7.1 fL (7.4-10.4); Platelet Count 252 thou/uL (130-400); RBC Distribution Width 14.2 % (11.5-14.5); Red Blood Cell (RBC) Count 3.76 mill/uL (4.20-5.40); White Blood Cell (WBC) Count 6.4 thou/uL (4.8-10.8)
[2020-01-17 05:19] LABS: INR-International Normal Ratio 0.9; PTT 25.6 SEC (22.9-36.1); Prothrombin Time 11.8 sec (12.0-14.7)
[2020-01-17 05:27] LABS: Anion Gap 13 mmol/L (10-20); BUN (Urea Nitrogen) 32 mg/dL (9.8-20.1); Calc. Creatinine Clearance 34 mL/min (70-130); Calcium 8.5 mg/dL (7.8-10.44); Carbon Dioxide 26 mmol/L (23-31); Chloride 101 mmol/L (98-107); Estimated GFR-MDRD 32; Glucose 159 mg/dL (80-115); Magnesium 2.2 mg/dL (1.6-2.6); Phosphorus 3.4 mg/dL (2.3-4.7); Potassium 4.2 mmol/L (3.5-5.1); Sodium 136 mmol/L (136-145)
[2020-01-17] MEDS: Ascorbic Acid 500 mg Chewable Tablet PO SCH ×2 (08:45→19:59)
[2020-01-17] MEDS: Ferrous Sulfate 325 MG TAB PO SCH (08:45)
[2020-01-17] MEDS: Escitalopram Oxalate 10 mg Tablet PO SCH (08:45)
[2020-01-17] MEDS: Aspirin 81 mg Enteric Coated Tablet PO SCH (08:45)
[2020-01-17] MEDS: Empagliflozin 25 MG TAB PO SCH (08:45)
[2020-01-17] MEDS: Amiodarone 200 MG TAB PO SCH ×2 (08:45→20:00)
[2020-01-17] MEDS: Heparin 5,000 UNITS/ML VIAL SC SCH (08:46)
[2020-01-17] MEDS: Nitrofurantoin Monohyd/M-Cryst 100 MG CAP PO SCH ×2 (08:46→20:00)
[2020-01-17] MEDS: Lisinopril 10 MG TAB PO SCH (08:46)
[2020-01-17] MEDS: Insulin Glargine 5 UNITS in Pre-Filled Syringe 1 EACH SC SCH (08:46)
[2020-01-17] MEDS: Polyethylene Glycol 3350 17 GM Packet PO SCH (08:47)
[2020-01-17] MEDS: Senokot S 8.6-50 MG TAB PO SCH ×2 (08:47→20:00)
[2020-01-17] MEDS: Polyethylene Glycol OPTH DROP 15 ML BOT EA EYE SCH (08:47)
[2020-01-17] MEDS: Acetaminophen 500 MG TAB PO SCH ×3 (09:45→21:31)
[2020-01-17] MEDS ORDERED: Phenylephrine 10 MG/ML VIAL ONE ×2 (11:19→12:43)
[2020-01-17] MEDS ORDERED: Fentanyl 250 MCG/5 ML VIAL ONE (11:19)
[2020-01-17] MEDS ORDERED: Thrombin 5000 UNITS/5 ML VIAL ONE (11:20)
[2020-01-17] MEDS ORDERED: Glycopyrrolate 0.2 MG/ML 5 ML SYRINGE ONE (11:23)
[2020-01-17] MEDS ORDERED: Lidocaine 1% PF 5 ML VIAL ONE (11:23)
[2020-01-17] MEDS ORDERED: Rocuronium Bromide 10 MG/ML (10ML VIAL) ONE (11:23)
[2020-01-17] MEDS ORDERED: PROPOFOL 200 MG/20 ML VIAL ONE (11:23)
[2020-01-17] MEDS ORDERED: EPHEDRINE 25 MG/5 ML SYRINGE ONE (11:23)
[2020-01-17] MEDS ORDERED: PHENYLEPHRINE-NS 100 MCG/ML 10 ML SYRINGE ONE (11:23)
[2020-01-17] MEDS ORDERED: Ondansetron PF 4 MG/2 ML Vial ONE (11:23)
[2020-01-17] MEDS ORDERED: Dexamethasone 20 MG/5 ML VIAL ONE (11:23)
--- NOTE | 2020-01-17 12:25 | PRG ---
DATE OF SERVICE: 01/17/2020 SUBJECTIVE: Ms. Shannon is a 69-year-old female, status post ground level fall, sustained left wrist fracture. She underwent ORIF of left wrist fracture. Postop day 3, the patient reports pain is well controlled. She is able to work physical therapy/occupational therapy. She tolerated with her diet. Vital signs stable. The patient had a plan to go to the OR with Dr. Thompson today for lumbar disk herniation fixation. OBJECTIVE: GENERAL: Currently, the patient lying in bed comfortable with no acute respiratory distress. VITAL SIGNS: Temperature 97.9, heart rate 103, respiratory rate 18, O2 saturation 97% on room air, and blood pressure 103/75. LUNGS: Clear bilaterally. HEART: Regular rate and rhythm. ABDOMEN: Soft and nondistended. EXTREMITIES: Neurovascularly intact x4. NEUROLOGIC: No focal neurology deficits. ASSESSMENT: 1. Status post ground level fall. 2. Left wrist fracture, status post open reduction and internal fixation of left wrist fracture. 3. History of coronary artery disease, coronary artery bypass grafting stable. 4. Peripheral vascular disease. Await for planned bilateral femoral stenting with Dr. Robles in 4 weeks. 5. Lumbar herniated disks with lumbar stenosis and lumbar disk extrusion. Await for surgery with Dr. Thompson today. PLAN: Plan will be continue supportive care. Continue pain control. The patient was on n.p.o. at midnight. Continue DVT prophylaxis. Postop, the patient will need to work physical therapy/occupational therapy. Anticipate placement in rehabilitation facility or [facility] home facility. The patient was seen and evaluated with Dr. Nobles on round this morning. Job ID: [id number]
[2020-01-17] MEDS ORDERED: Morphine 2 MG/ML SYRINGE SLOW IVP PRN (15:19)
[2020-01-17] MEDS ORDERED: traMADol HCl 50 MG TAB PO PRN (15:22)
[2020-01-17] MEDS ORDERED: Promethazine HCl 25 MG/ML VIAL IM PRN (15:25)
[2020-01-17] MEDS ORDERED: Promethazine HCl 25 MG/ML VIAL SLOW IVP PRN (15:25)
[2020-01-17] MEDS ORDERED: Ondansetron HCl/PF 4 MG/2 ML Vial IVP PRN (15:25)
[2020-01-17] MEDS ORDERED: Fentanyl 100 MCG/2 ML VIAL ONE (15:42)
[2020-01-17] MEDS: Insulin Regular 300 UNITS/3 ML VIAL SC PRN ×2 (17:05→21:31)
[2020-01-17] MEDS: HYDROcodone/Acetaminophen 7.5/325 mg Tablet PO PRN (19:59)
[2020-01-17] MEDS: Atorvastatin Calcium 40 MG TAB PO SCH (20:00)
--- NOTE | 2020-01-18 04:37 | PRG ---
DATE OF SERVICE: 01/18/2020 SUBJECTIVE: The patient is currently on the surgical floor. She is status post a ground level fall, in which she sustained a left distal radius and ulna fracture, which she has undergone operative intervention for. She tolerated that procedure well. The patient remained in the hospital as it was discovered that she was pending surgery for her peripheral vascular disease and is also noted that she had a surgery pending with Dr. Thompson. Upon review of her case, Dr. Thompson felt that her fall may have been caused by her neurological weakness and today he took her for spinal surgery. She tolerated this procedure well, though she returned to the floor late and was unable to work with therapy today. She is reportedly tolerating a diet and her pain is controlled. PHYSICAL EXAMINATION: VITAL SIGNS: Stable. The patient is afebrile. GENERAL: The patient is resting comfortably in bed. Nurses report no issues. She appeared comfortable. Her respirations appeared nonlabored. I did not awaken her for an exam. ASSESSMENT: 1. Status post ground level fall, hospital day #5. 2. Postop day #3 status post open reduction and internal fixation of left radius and ulna fracture. 3. History of coronary artery bypass. 4. History of peripheral vascular disease, awaiting femoral stenting bilaterally by Dr. Robles tentatively scheduled for 4 weeks from now. 5. Status post surgery with Dr. Thompson for a lumbar herniated disk with lumbar stenosis and lumbar disk extrusion. PLAN: Plan will be to continue supportive care. Begin physical and occupational therapy as directed by Dr. Thompson and discuss placement. Job ID: [id number]
[2020-01-18] MEDS: Acetaminophen 500 MG TAB PO SCH ×2 (05:05→14:10)
[2020-01-18] MEDS: Cyclobenzaprine 10 MG TAB PO PRN (05:05)
--- NOTE | 2020-01-18 06:59 | OP ---
DATE OF PROCEDURE: 01/17/2020 LOCATION: OR-11. JEWELRY SALESPERSON: Trang Fields PA-C PREPROCEDURE DIAGNOSIS: Multilevel lumbar stenosis with low back and leg pain and gait decline. POSTPROCEDURE DIAGNOSIS: Multilevel lumbar stenosis with low back and leg pain and gait decline. PROCEDURES PERFORMED: 1. Left L1-L2 hemilaminotomy, foraminotomy. 2. Revision left L2-L3 hemilaminotomy, foraminotomy. 3. Right L3-L4 synovial cyst resection. 4. Left L3-L4 revision hemilaminotomy, foraminotomy with right-sided L3-L4 diskectomy. 5. Use of operative microscope for microdissection. DESCRIPTION OF PROCEDURE: After informed consent was obtained from the patient, the patient was brought to the OR. Proper patient, pause, and identification. She was placed prone on the operating room table. All appropriate points were padded. We identified the L1, L2, L3 and L4 segments and these areas were sterilely cleansed, prepared and draped. Proper patient, pause, and identification were carried out. The wound was then opened with combination of sharp, monopolar, and blunt dissection. The left L1-L2 segment was exposed along with the left L2-L3 and bilateral L3-L4 segments. Left L1-L2 hemilaminotomy, foraminotomy was then performed along with left L2-L3. I did not feel it necessary to do a diskectomy as we had satisfactory decompression. I then performed a right L3-L4 synovial cyst resection and explored the disk space on the right side. I also did a left L3-L4 hemilaminotomy, foraminotomy. I was satisfied with our decompression. Copious irrigation occurred throughout as did maximizing hemostasis. The wound was then closed in anatomic layers. The patient emerged from anesthesia. Job ID: [id number]
[2020-01-18] MEDS ORDERED: Furosemide 20 MG TAB PO SCH (07:15)
--- NOTE | 2020-01-18 07:25 | PRG ---
DATE OF SERVICE: 01/18/2020 SUBJECTIVE: Mrs. Shannon is postop day #1 after undergoing multilevel lumbar hemilaminotomies and right L3-L4 synovial cyst resection. She has remained afebrile postoperatively with lowest blood pressure of 96/56, otherwise normotensive. She states that she has some incisional low back pain, but otherwise her back pain is improved compared to before surgery. She denies any leg pain. Overall, she reports improvement in her preoperative symptoms. She states that she was able to sleep comfortably lying flat on her back last night, which she has not been able to do for a long time. She has an indwelling Vyas catheter in place and has not yet been able to mobilize. We will work on this with therapies today. PHYSICAL EXAMINATION: The patient is awake, alert, and appropriate. She has 5/5 strength throughout her lower extremity dermatomes bilaterally. Sensation to light touch is intact and equal in her bilateral lower extremities. The patient has good movement in both legs and feet. Her lower back dressing is clean and dry. Bilateral pedal edema. I have restarted her on 81 mg aspirin. Additionally, I have ordered Lasix given her swelling and patient report that this is one of her home medications. Plan will be to continue optimizing pain control and begin to mobilize the patient. She will likely be discharged to inpatient rehab for continued therapies prior to going home. Please call for any neurologic changes or other concerns. Job ID: [id number] MTDD
[2020-01-18] MEDS: Insulin Glargine 5 UNITS in Pre-Filled Syringe 1 EACH SC SCH (08:18)
[2020-01-18] MEDS: Polyethylene Glycol OPTH DROP 15 ML BOT EA EYE SCH (08:19)
[2020-01-18] MEDS: Lisinopril 10 MG TAB PO SCH (08:20)
[2020-01-18] MEDS: Empagliflozin 25 MG TAB PO SCH (08:21)
[2020-01-18] MEDS: Nitrofurantoin Monohyd/M-Cryst 100 MG CAP PO SCH (08:21)
[2020-01-18] MEDS: Amiodarone 200 MG TAB PO SCH (08:22)
[2020-01-18] MEDS: Ascorbic Acid 500 mg Chewable Tablet PO SCH (08:22)
[2020-01-18] MEDS: Ferrous Sulfate 325 MG TAB PO SCH (08:22)
[2020-01-18] MEDS: Senokot S 8.6-50 MG TAB PO SCH (08:22)
[2020-01-18] MEDS: Escitalopram Oxalate 10 mg Tablet PO SCH (08:23)
[2020-01-18] MEDS: Polyethylene Glycol 3350 17 GM Packet PO SCH (08:24)
[2020-01-18] MEDS ORDERED: Aspirin 81 mg Enteric Coated Tablet PO SCH (09:00)
--- NOTE | 2020-01-18 09:48 | PRG ---
DATE OF SERVICE: 01/18/2020 Ms. Shannon is postoperative day #1 from left-sided and right-sided L1-L4 decompressions. She is doing well this morning with resolution in her leg pain. She feels as if she has made excellent strides in the postoperative period, improvement in strength, and resolution of leg pain. I let her know that we can remove the Vyas catheter once she is able to get to a bedside commode. The goal at this point will be transferred to inpatient rehab whenever possible. I should note as well that we have re-initiated her baby aspirin given her ischemic cardiomyopathy and vasculopathy and I have let Dr. Nobles know that I would be fine with initiation of low-dose prophylactic Lovenox 48 hours after surgery. Job ID: [id number]
[2020-01-18] MEDS: HYDROcodone/Acetaminophen 7.5/325 mg Tablet PO PRN ×2 (10:33→16:56)
[2020-01-18] MEDS: Insulin Regular 300 UNITS/3 ML VIAL SC PRN ×2 (12:18→16:57)
[2020-01-18 16:33] VITALS: BP 150/83; TEMP 98.2
--- NOTE | 2020-01-19 11:48 | DIS ---
DATE OF ADMISSION: 01/13/2020 DATE OF DISCHARGE: 01/18/2020 DISCHARGE ATTENDING: Dr. Nobles. CONSULTS: Orthopedic Surgery, Dr. Bloom. PROCEDURES: On 01/14/2020, open reduction and internal fixation of left distal radius fracture. On 01/17/2020, the patient had a left L1-L2 hemilaminotomy, foraminotomy; revision of left hemilaminotomy, foraminotomy; right L3-L4 synovial cyst resection; left L3-L4 revision hemilaminotomy, foraminotomy with right-sided L3-L4 diskectomy by Dr. Thompson. PRIMARY DIAGNOSES: Status post mechanical fall, closed left wrist fracture. SECONDARY DIAGNOSES: History of coronary artery disease, coronary artery bypass grafting in October 2019, multiple peripheral vascular disease, awaiting bilateral femoral stenting, diabetes mellitus type 2, hypertension, lumbar herniated disk with bilateral lower extremity neuropathy. DISCHARGE MEDICATIONS: 1. Acetaminophen 500 mg p.o. q.8 hours. 2. Xanax 0.5 mg p.o. at bedtime. 3. Amiodarone 200 mg p.o. b.i.d. 4. Vitamin C 500 mg p.o. b.i.d. for 30 days. 5. Aspirin p.o. daily. 6. Vitamin D 2000 units daily. 7. Vitamin B12 subcu. 8. Flexeril 5 mg p.o. 3 times a day as needed. 9. Jardiance 25 mg p.o. daily. 10. Lovenox 40 mg subcu daily. 11. Lexapro 10 mg p.o. q.a.m. 12. Ferrous sulfate 325 mg p.o. daily with meals. 13. [place] 7.5 mg one tablet p.o. q.6 hours p.r.n. pain. 14. Insulin Tresiba 5 units subcu daily. 15. Lactulose p.o. daily for constipation as needed. 16. Lisinopril 10 mg p.o. daily. 17. Metformin 1000 mg p.o. b.i.d. with meals. 18. Protonix 40 mg p.o. b.i.d. 19. MiraLAX as needed for constipation. 20. Senokot as needed for constipation. There were no discontinued medications. HISTORY OF PRESENT ILLNESS AND HOSPITAL COURSE: This is a 69-year-old female, who presented to the emergency room with left wrist pain after a fall at home. The patient had recently been experiencing multiple falls due to weakness from her bilateral lower extremities. The patient did not lose any consciousness and denied hitting her head or having any other injuries. The patient was admitted to Trauma Services. Her pain was managed pre and postop. The patient was able to work with Physical Therapy after both of her procedures. On the day of discharge, the patient was evaluated by Dr. Nobles. The patient had no complaints at the time. The patient's vital signs were stable on the day of discharge and her exam was unremarkable including cardiopulmonary and GI exam. The patient was deemed stable for discharge to inpatient rehab for continued physical and occupational therapy. DISPOSITION: Stable. DISCHARGE INSTRUCTIONS: 1. Location: Inpatient rehab. 2. Diet: Diabetic diet. 3. Activity: Orthopedic limitations, left upper extremity weightbearing as tolerated through the elbow, no weightbearing with hand. 4. Followup: Follow up with Dr. Thompson as directed. Follow up with primary care physician, Dr. Hopper as needed. Follow up with Orthopedic Surgery, Dr. Bloom in 2 weeks. No need to follow up with Trauma Services. Call for any questions. Job ID: [id number]
[2020-01-19] MEDS ORDERED: Enoxaparin Sodium 40 MG/0.4 ML SYRINGE SC SCH (21:00)
== END 2020-01-18 17:00 | DRG 511 ==
LOC: ERS 14:34 → SURG B 19:02
PROVIDERS: ADMIT Thoracic Surgery (Cardiothoracic Vascular Surgery); ATTEND Thoracic Surgery (Cardiothoracic Vascular Surgery)
PROC: 0PSJ04Z Reposition Left Radius with Internal Fixation Device, Open Approach (ICD-10-PCS; principal; 2020-01-14)
PROC: 01NB0ZZ Release Lumbar Nerve, Open Approach (ICD-10-PCS; 2020-01-17)
DX: S52.552A Other extraarticular fracture of lower end of left radius, initial encounter for closed fracture (principal); N39.0 Urinary tract infection, site not specified; S52.612A Displaced fracture of left ulna styloid process, initial encounter for closed fracture; R29.6 Repeated falls; E11.51 Type 2 diabetes mellitus with diabetic peripheral angiopathy without gangrene; I25.10 Atherosclerotic heart disease of native coronary artery without angina pectoris; I10 Essential (primary) hypertension; W19.XXXA Unspecified fall, initial encounter; G47.33 Obstructive sleep apnea (adult) (pediatric); E53.8 Deficiency of other specified B group vitamins; M71.38 Other bursal cyst, other site; I25.5 Ischemic cardiomyopathy; E11.9 Type 2 diabetes mellitus without complications; H35.30 Unspecified macular degeneration; M51.26 Other intervertebral disc displacement, lumbar region; M48.061 Spinal stenosis, lumbar region without neurogenic claudication; J43.9 Emphysema, unspecified; Y92.019 Unspecified place in single-family (private) house as the place of occurrence of the external cause; Z91.048 Other nonmedicinal substance allergy status; Z95.1 Presence of aortocoronary bypass graft; Z87.891 Personal history of nicotine dependence; Z90.49 Acquired absence of other specified parts of digestive tract; Z90.710 Acquired absence of both cervix and uterus
CPT/HCPCS: 29125; 36415; 36416; 72050; 72072; 72110; 72125; 72141; 72146; 72158; 76000; 80048; 81003; 81015; 82533; 82553; 82565; 83036; 83735; 83880; 84100; 84484; 85025; 85610; 85730; 86850; 86900; 86901; A9579; C1713; G0390; J0360; J0670; J0690; J0696; J1100; J1644; J1815; J2001; J2250; J2270; J2370; J2405; J2704; J3010; J3370; J3475; J3480; J3490

== ENCOUNTER 2020-03-16 13:15 | Inpatient (IN) | payer MEDICARE, BC, OTHER ==
[2020-03-14 12:06] VITALS: BMI 26.6
[2020-03-16 16:13] LABS: Anion Gap 15 mmol/L (10-20); BUN (Urea Nitrogen) 30 mg/dL (9.8-20.1); Calc. Creatinine Clearance 0 mL/min (70-130); Calcium 8.5 mg/dL (7.8-10.44); Carbon Dioxide 23 mmol/L (23-31); Chloride 101 mmol/L (98-107); Estimated GFR-MDRD 24; Glucose 180 mg/dL (80-115); Hemoglobin 12.7 g/dL (12.0-16.0); Mean Corpuscular HGB CONC 31.6 g/dL (32.0-36.0); Mean Corpuscular Hemoglobin 29.8 pg (27.0-31.0); Mean Corpuscular Volume 94.1 fL (78.0-98.0); Mean Platelet Volume 7.6 fL (7.4-10.4); Platelet Count 229 thou/uL (130-400); RBC Distribution Width 14.9 % (11.5-14.5); Red Blood Cell (RBC) Count 4.28 mill/uL (4.20-5.40); Sodium 133 mmol/L (136-145); White Blood Cell (WBC) Count 7.1 thou/uL (4.8-10.8)
[2020-03-17 12:48] LABS: SARS-CoV-2 MS2 Positive; SARS-CoV-2 N Gene Negative; SARS-CoV-2 S Gene Negative; SARS-CoV-2 orf1ab Negative
[2020-03-21] MEDS ORDERED: Heparin 5,000 UNITS/ML VIAL ONE (06:32)
[2020-03-21] MEDS ORDERED: Protamine Sulfate 50 MG/5 ML VIAL ONE (06:32)
[2020-03-21] MEDS ORDERED: Fentanyl 250 MCG/5 ML VIAL ONE (06:51)
[2020-03-21] MEDS ORDERED: Bupivacaine PF 0.5% 30 ML VIAL ONE (07:49)
[2020-03-21] MEDS ORDERED: Meperidine HCl/PF 25 MG/ML VIAL IV PRN (09:30)
[2020-03-21] MEDS ORDERED: Ondansetron HCl/PF 4 MG/2 ML Vial IVP PRN (09:30)
[2020-03-21] MEDS ORDERED: Ketorolac Tromethamine 30 MG/ML VIAL IVP PRN (09:30)
[2020-03-21] MEDS ORDERED: Morphine Sulfate 2 MG/ML SYRINGE SLOW IVP PRN (09:30)
[2020-03-21] MEDS ORDERED: Promethazine HCl 25 MG/ML VIAL IM/IV PRN (09:30)
[2020-03-21] MEDS ORDERED: PACU-Morphine 4MG/ML VIAL SLOW IVP PRN (09:30)
[2020-03-21] MEDS ORDERED: Ketorolac Tromethamine 30 MG/ML VIAL IM/IV PRN (09:30)
[2020-03-21] MEDS ORDERED: HYDROmorphone 2 MG/ML VIAL SLOW IVP PRN (09:30)
[2020-03-21] MEDS ORDERED: Meperidine HCl/PF 25 MG/ML VIAL SLOW IVP PRN (09:30)
[2020-03-21] MEDS ORDERED: HYDROcodone/Acetaminophen 7.5/325 mg Tablet PO PRN ×2 (12:18)
[2020-03-21] MEDS ORDERED: Fentanyl 100 MCG/2 ML VIAL SLOW IVP PRN (12:19)
[2020-03-21] MEDS ORDERED: Acetaminophen 325 MG TAB PO PRN (12:21)
[2020-03-21] MEDS ORDERED: Bisacodyl 10 MG SUPP PR PRN (12:22)
[2020-03-21] MEDS ORDERED: Dextrose 50% Abboject 50 ML SYRINGE IVP PRN (12:23)
[2020-03-21] MEDS ORDERED: Insulin Regular 300 UNITS/3 ML VIAL SC PRN (12:23)
[2020-03-21] MEDS ORDERED: Dextrose 5% in Water 1,000 ML IV PRN (12:23)
[2020-03-21] MEDS ORDERED: Bisacodyl 5 MG TAB PO PRN (12:23)
[2020-03-21] MEDS ORDERED: Non-Formulary Medication 1 EACH PO PRN (12:26)
--- NOTE | 2020-03-21 12:59 | OP ---
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 PROCEDURES PERFORMED: 1. Right common femoral endarterectomy. 2. Bovine patch angioplasty. ANESTHESIA: General. ESTIMATED BLOOD LOSS: Minimal. DESCRIPTION OF PROCEDURE: After adequate anesthesia had been obtained, the patient was prepped and draped. An incision was made, perhaps somewhat cephalad as inguinal ligament was encountered and dissection was carried distally. Origins of the superficial and profunda were controlled, following which a clamp was applied after heparinization above the inguinal ligament and the external iliac artery and then on origins of the profunda and superficial femoral arteries. Endarterectomy was then performed and the area thoroughly irrigated. Vessels backflushed with sluggish superficial femoral artery backbleeding and good profunda backbleeding. A bovine patch was used to close the arteriotomy, and then prior to completing the suture line, vessels backflushed and forward flushed. Flow was then restored down the profunda and then SFA. Protamine was partially reversed with heparin, and after obtaining good hemostasis, the wound was closed in layers. The patient is to be taken to the ICU in guarded condition. Job ID: [id number]
[2020-03-21] MEDS ORDERED: EPHEDRINE 25 MG/5 ML SYRINGE ONE (14:25)
[2020-03-21] MEDS ORDERED: Lidocaine 1% PF 5 ML VIAL ONE (14:25)
[2020-03-21] MEDS ORDERED: PROPOFOL 200 MG/20 ML VIAL ONE (14:25)
[2020-03-21] MEDS ORDERED: Vecuronium 10 MG VIAL ONE (14:25)
[2020-03-21] MEDS ORDERED: Glycopyrrolate 0.2 MG/ML 5 ML SYRINGE ONE (14:25)
[2020-03-21] MEDS ORDERED: Dexamethasone 20 MG/5 ML VIAL ONE (14:25)
[2020-03-21] MEDS ORDERED: PHENYLEPHRINE-NS 100 MCG/ML 10 ML SYRINGE ONE (14:25)
[2020-03-21] MEDS ORDERED: Ondansetron PF 4 MG/2 ML Vial ONE (14:25)
[2020-03-21] MEDS: Sodium Chloride 0.9% 1,000 ML IV SCH (17:11)
[2020-03-21] MEDS ORDERED: ALPRAZolam 0.25 MG TAB PO SCH (21:00)
[2020-03-22] MEDS: Sodium Chloride 0.9% 1,000 ML IV SCH (07:11)
[2020-03-22 08:25] VITALS: BP 151/79; TEMP 98
[2020-03-22] MEDS ORDERED: Aspirin Chewable 81 MG TAB PO SCH (09:00)
[2020-03-22] MEDS ORDERED: Escitalopram Oxalate 10 mg Tablet PO SCH (09:00)
[2020-03-22] MEDS ORDERED: Polyethylene Glycol 3350 17 GM Packet PO SCH (09:00)
[2020-03-22] MEDS ORDERED: Insulin Glargine 5 UNITS in Pre-Filled Syringe 1 EACH SC SCH (09:00)
[2020-03-22] MEDS ORDERED: Empagliflozin 25 MG TAB PO SCH (09:00)
--- NOTE | 2020-03-22 13:59 | DIS ---
DATE OF ADMISSION: 03/21/2020 DATE OF DISCHARGE: 03/22/2020 The patient underwent elective right common femoral endarterectomy and postoperative course was unremarkable. She was maintained on some hydration overnight due to a baseline creatinine of 2. She is voiding well, incision without swelling. She will be discharged home on her admitting medicines and instructions have been given in regard to wound care. We will follow up with her in 2-3 weeks. Job ID: [id number]
== END 2020-03-22 11:34 | disposition home or self-care (01) | DRG 254 ==
LOC: SURG A 03-21 05:53
PROVIDERS: ADMIT Thoracic Surgery (Cardiothoracic Vascular Surgery); ATTEND Thoracic Surgery (Cardiothoracic Vascular Surgery)
PROC: 04CK0ZZ Extirpation of Matter from Right Femoral Artery, Open Approach (ICD-10-PCS; principal; 2020-03-21)
PROC: 04UK0KZ Supplement Right Femoral Artery with Nonautologous Tissue Substitute, Open Approach (ICD-10-PCS; 2020-03-21)
DX: I70.213 Atherosclerosis of native arteries of extremities with intermittent claudication, bilateral legs (principal); I10 Essential (primary) hypertension; E78.5 Hyperlipidemia, unspecified; I25.10 Atherosclerotic heart disease of native coronary artery without angina pectoris; E11.9 Type 2 diabetes mellitus without complications; F32.9 Major depressive disorder, single episode, unspecified; Z95.1 Presence of aortocoronary bypass graft; Z88.8 Allergy status to other drugs, medicaments and biological substances; Z90.710 Acquired absence of both cervix and uterus
CPT/HCPCS: 36416; 80048; 85027; 86850; 86900; 86901; 87635; 93005; 93010; J0690; J1100; J1642; J1644; J1815; J2405; J2704; J2720; J3010; S0020; U0003

== ENCOUNTER 2020-08-04 16:30 | Outpatient (CLI) | payer MEDICARE, BC | END 2020-08-04 16:31 | disposition home or self-care (01) | LOC: SLEEPLAB 16:30 | PROVIDERS: ATTEND Internal Medicine Critical Care Medicine | DX: G47.33 Obstructive sleep apnea (adult) (pediatric) (principal) | CPT/HCPCS: 95806 ==

== ENCOUNTER 2020-08-18 09:48 | Outpatient (CLI) | payer MEDICARE, BC ==
--- NOTE | 2020-08-18 10:45 | BD ---
EXAM: DEXA bone density examination HISTORY: 70-year-old postmenopausal female for screening COMPARISON: None FINDINGS: L1--bone mineral density 1.134 g/sq cm; T score 1.3 L2--bone mineral density 1.121 g/sq cm; T score 0.8 L3--bone mineral density 1.061 g/sq cm; T score -0.2 L4--bone mineral density 1.156 g/sq cm; T score 0.9 Total L1-L4--bone mineral density 1.121 g/sq cm; T score 0.7 Right femoral neck--bone mineral density0.732; T score -1.0 Total proximal right femur--bone mineral density 0.759; T score 1.5 IMPRESSION: Normal bone density.
== END 2020-08-18 09:49 | disposition home or self-care (01) ==
LOC: BICMAMMO 09:48
PROVIDERS: ATTEND Internal Medicine
DX: M80.00XA Age-related osteoporosis with current pathological fracture, unspecified site, initial encounter for fracture (principal)
CPT/HCPCS: 77080

== ENCOUNTER 2020-11-15 09:53 | Outpatient (CLI) | payer MEDICARE, BC | END 2020-11-15 09:54 | disposition home or self-care (01) | LOC: DTY/OP 09:53 | PROVIDERS: ATTEND Internal Medicine | DX: E11.51 Type 2 diabetes mellitus with diabetic peripheral angiopathy without gangrene (principal); E11.22 Type 2 diabetes mellitus with diabetic chronic kidney disease; N18.30 Chronic kidney disease, stage 3 unspecified | CPT/HCPCS: 97802 ==

== ENCOUNTER 2021-09-19 12:10 | Outpatient (CLI) | payer MEDICARE, BC | END 2021-09-19 12:11 | disposition home or self-care (01) | LOC: BICMAMMO 12:10 | PROVIDERS: ATTEND Internal Medicine | DX: Z12.31 Encounter for screening mammogram for malignant neoplasm of breast (principal); Z80.3 Family history of malignant neoplasm of breast | CPT/HCPCS: 77063; 77067 ==

== ENCOUNTER 2022-09-27 13:16 | Outpatient (CLI) | payer MEDICARE, BC | END 2022-09-27 13:17 | disposition home or self-care (01) | LOC: BICMAMMO 13:16 | PROVIDERS: ATTEND Internal Medicine | DX: M80.00XD Age-related osteoporosis with current pathological fracture, unspecified site, subsequent encounter for fracture with routine healing (principal); M85.851 Other specified disorders of bone density and structure, right thigh; Z78.0 Asymptomatic menopausal state | CPT/HCPCS: 77080 ==

== ENCOUNTER 2022-10-25 11:08 | Outpatient (CLI) | payer MEDICARE, BC | END 2022-10-25 11:09 | disposition home or self-care (01) | LOC: BICMAMMO 11:08 | PROVIDERS: ATTEND Internal Medicine | DX: Z12.31 Encounter for screening mammogram for malignant neoplasm of breast (principal); Z80.3 Family history of malignant neoplasm of breast | CPT/HCPCS: 77063; 77067 ==

== ENCOUNTER 2023-03-03 13:03 | Outpatient (CLI) | payer MEDICARE, BC | END 2023-03-03 13:04 | disposition home or self-care (01) | LOC: BICCT 13:03 | PROVIDERS: ATTEND Surgery | DX: G95.9 Disease of spinal cord, unspecified (principal); M50.00 Cervical disc disorder with myelopathy, unspecified cervical region; M47.812 Spondylosis without myelopathy or radiculopathy, cervical region; I25.10 Atherosclerotic heart disease of native coronary artery without angina pectoris; Z98.890 Other specified postprocedural states | CPT/HCPCS: 72125 ==

== ENCOUNTER 2023-04-14 09:31 | Outpatient (CLI) | payer MEDICARE, BC ==
[2023-04-14 10:31] LABS: Hematocrit 35.3 % (34.9-44.5); Hemoglobin 10.7 g/dL (12.0-15.5); Mean Corpuscular HGB CONC 30.3 g/dL (32.0-36.0); Mean Corpuscular Hemoglobin 25.4 pg (27.0-33.0); Mean Corpuscular Volume 83.8 fl (81.6-98.3); Mean Platelet Volume 10.4 fl (7.4-10.4); Platelet Count 238 10x3/uL (150-450); RBC Distribution Width 16.2 % (11.5-14.5); Red Blood Cell (RBC) Count 4.21 10x6/uL (3.90-5.03); White Blood Cell (WBC) Count 6.6 10x3/uL (3.5-10.5)
[2023-04-14 11:01] LABS: Anion Gap 15 mmol/L (10-20); BUN (Urea Nitrogen) 20 mg/dL (9.8-20.1); Calc. Creatinine Clearance 0 mL/min (70-130); Calcium 8.4 mg/dL (7.8-10.44); Carbon Dioxide 29 mmol/L (23-31); Chloride 98 mmol/L (98-107); Estimated GFR 37; Glucose 231 mg/dL (83-110); Potassium 4.5 mmol/L (3.5-5.1); Sodium 137 mmol/L (136-145)
[2023-04-14 11:07] LABS: INR-International Normal Ratio 1.1; PTT 27.7 sec (22.0-33.0); Prothrombin Time 11.7 sec (9.5-12.1)
== END 2023-04-14 09:32 | disposition home or self-care (01) ==
LOC: LABBT 09:31
PROVIDERS: ATTEND Surgery
DX: Z01.818 Encounter for other preprocedural examination (principal)
CPT/HCPCS: 80048; 85027; 85610; 85730; 93005; 93010

== ENCOUNTER 2023-04-17 08:02 | Day surgery (SDC) | payer MEDICARE, BC ==
[2023-04-14 10:24] VITALS: BMI 26.2
[2023-04-17] MEDS ORDERED: Thrombin 5000 UNITS/5 ML VIAL ONE (09:52)
[2023-04-17] MEDS ORDERED: Vancomycin 1 GM VIAL ONE (09:52)
[2023-04-17] MEDS ORDERED: CEFAZOLIN 2 GM VIAL ONE (10:33)
[2023-04-17] MEDS ORDERED: Sodium Chloride 0.9% 100 ML ONE (10:33)
[2023-04-17] MEDS ORDERED: fentaNYL PF 100 MCG/2 ML SYRINGE ONE (10:37)
[2023-04-17] MEDS ORDERED: Ondansetron PF 4 MG/2 ML Vial ONE (10:45)
[2023-04-17] MEDS ORDERED: PROPOFOL 200 MG/20 ML VIAL ONE (10:45)
[2023-04-17] MEDS ORDERED: NEOSTIGMINE 3 MG/3 ML SYR 3 MG/3 ML SYRINGE ONE (10:45)
[2023-04-17] MEDS ORDERED: Lidocaine 1% PF 5 ML VIAL ONE (10:45)
[2023-04-17] MEDS ORDERED: Dexamethasone 20 MG/5 ML VIAL ONE (10:45)
[2023-04-17] MEDS ORDERED: Glycopyrrolate 0.2 MG/ML 5 ML SYRINGE ONE (10:45)
[2023-04-17] MEDS ORDERED: Rocuronium Bromide 10 MG/ML (10ML VIAL) ONE (10:45)
[2023-04-17] MEDS ORDERED: HYDROmorphone 2 MG/ML VIAL SLOW IVP PRN (11:16)
[2023-04-17] MEDS ORDERED: Promethazine HCl 25 MG/ML VIAL IM PRN (11:16)
[2023-04-17] MEDS ORDERED: PACU-Morphine 4MG/ML VIAL SLOW IVP PRN (11:16)
[2023-04-17] MEDS ORDERED: Ondansetron HCl/PF 4 MG/2 ML Vial IVP PRN (11:16)
[2023-04-17] MEDS ORDERED: Morphine Sulfate 2 MG/ML SYRINGE SLOW IVP PRN (11:16)
[2023-04-17] MEDS ORDERED: Labetalol HCl 100 MG/20 ML VIAL ONE (11:57)
== END 2023-04-17 14:00 | disposition home or self-care (01) ==
LOC: SDC 08:02
PROVIDERS: ATTEND Surgery
PROC: 00B Central Nervous System and Cranial Nerves, Excision (ICD-10-PCS; principal; 2023-04-17)
DX: D48.0 Neoplasm of uncertain behavior of bone and articular cartilage (principal); G95.9 Disease of spinal cord, unspecified; E78.5 Hyperlipidemia, unspecified; I25.10 Atherosclerotic heart disease of native coronary artery without angina pectoris; I73.9 Peripheral vascular disease, unspecified; K21.9 Gastro-esophageal reflux disease without esophagitis; N18.9 Chronic kidney disease, unspecified; I12.9 Hypertensive chronic kidney disease with stage 1 through stage 4 chronic kidney disease, or unspecified chronic kidney disease; E11.22 Type 2 diabetes mellitus with diabetic chronic kidney disease; B96.89 Other specified bacterial agents as the cause of diseases classified elsewhere; Z90.710 Acquired absence of both cervix and uterus; Z95.5 Presence of coronary angioplasty implant and graft; Z98.1 Arthrodesis status; Z86.73 Personal history of transient ischemic attack (TIA), and cerebral infarction without residual deficits; Z79.899 Other long term (current) drug therapy
CPT/HCPCS: 36416; J1100; J2405; J2704; J3370; J3490

== ENCOUNTER 2023-10-17 12:23 | Outpatient (CLI) | payer MEDICARE | END 2023-10-17 12:24 | disposition home or self-care (01) | LOC: RAD 12:23 | PROVIDERS: ATTEND Internal Medicine | DX: R13.10 Dysphagia, unspecified (principal); M48.02 Spinal stenosis, cervical region | CPT/HCPCS: 74220 ==

== ENCOUNTER 2024-08-20 08:35 | Outpatient (CLI) | payer MEDICARE ==
[2024-08-20 10:35] LABS: #Basophils 0.09 10x3/uL (0.0-0.2); %Basophils 1.9 % (0.0-1.0); %Eosinophils 6.2 % (0.0-10.0); %Lymphocytes 18.7 % (21.0-51.0); %Monocytes 12.9 % (0.0-10.0); %Neutrophils 60.1 % (42.0-75.0); Hematocrit 33.3 % (36.0-47.0); Mean Corpuscular Hemoglobin 23.6 pg (27.0-31.0); Mean Corpuscular Volume 78.5 fL (78.0-98.0); Mean Platelet Volume 10.2 fL (7.4-10.4); Platelet Count 189 10x3/uL (130-400); Red Blood Cell (RBC) Count 4.24 mill/uL (4.20-5.40)
[2024-08-20 10:53] LABS: Anion Gap 15 mmol/L (10-20); BUN (Urea Nitrogen) 28 mg/dL (9.8-20.1); Calc. Creatinine Clearance 0 mL/min (70-130); Calcium 8.3 mg/dL (7.8-10.44); Carbon Dioxide 26 mmol/L (23-31); Chloride 101 mmol/L (98-107); Estimated GFR 47; Glucose 160 mg/dL (83-110); Potassium 4.6 mmol/L (3.5-5.1); Sodium 137 mmol/L (136-145)
== END 2024-08-20 08:36 | disposition home or self-care (01) ==
LOC: LABBT 08:35
PROVIDERS: ATTEND Thoracic Surgery (Cardiothoracic Vascular Surgery)
DX: Z01.818 Encounter for other preprocedural examination (principal); I65.22 Occlusion and stenosis of left carotid artery
CPT/HCPCS: 80048; 85025; 93005; 93010

== ENCOUNTER 2025-03-26 09:53 | Emergency (ER) | payer MEDICARE ==
[2025-03-26 11:59] LABS: #Basophils Less than 0.03 10x3/uL (0.0-0.2); #Eosinophils 0.09 10x3/uL (0.0-0.7); #Monocytes 0.98 10x3/uL (0.11-0.59); #Neutrophils 5.14 10x3/uL (1.40-6.50); %Basophils 0.3 % (0.0-1.0); %Eosinophils 1.2 % (0.0-10.0); %Lymphocytes 13.2 % (21.0-51.0); %Monocytes 13.6 % (0.0-10.0); %Neutrophils 71.3 % (42.0-75.0); Hematocrit 28.8 % (36.0-47.0); Hemoglobin 8.8 g/dL (12.0-16.0); Mean Corpuscular Hemoglobin 28.0 pg (27.0-31.0); Mean Corpuscular Volume 91.7 fL (78.0-98.0); Platelet Count 154 10x3/uL (130-400); Red Blood Cell (RBC) Count 3.14 mill/uL (4.20-5.40); White Blood Cell (WBC) Count 7.21 10x3/uL (4.8-10.8)
[2025-03-26 12:17] LABS: ALT (SGPT) 26 U/L (Less than 34); AST (SGOT) 57 U/L (11-34); Albumin 3.0 g/dL (3.1-4.5); Alkaline Phosphatase 203 U/L (40-110); Anion Gap 20 mmol/L (10-20); BUN (Urea Nitrogen) 62 mg/dL (9.8-20.1); Bilirubin, Total 1.2 mg/dL (0.3-1.2); Calc. Creatinine Clearance 0 mL/min (70-130); Calcium 7.9 mg/dL (7.8-10.44); Carbon Dioxide 24 mmol/L (23-31); Chloride 101 mmol/L (98-107); Globulin 3.2 g/dL (2.4-3.5); Glucose 59 mg/dL (83-110); Lipase 4 U/L (8-78); Potassium 5.9 mmol/L (3.5-5.1); Sodium 139 mmol/L (136-145)
[2025-03-26 12:35] LABS: Bacteria/HPF 1+ HPF (None Seen); CAUTI Indications for Culture Pelvic or flank pain; Glucose, Urine (Dipstick) Normal (Negative); Leukocyte 75 Leu/uL (Negative); Protein, Urine (Dipstick) Negative (Neg-Trace); RBC/HPF 0-3 HPF (0-3); Specific Gravity, Urine 1.019 (1.002-1.036)
[2025-03-26 12:36] LABS: Urine Culture Reflex No No
[2025-03-26] MEDS ORDERED: Iopamidol 370 76% 100 ML VIAL ONE (14:48)
== END 2025-03-26 16:20 | disposition home or self-care (01) ==
LOC: ERS 09:53
DX: K52.9 Noninfective gastroenteritis and colitis, unspecified (principal); I48.91 Unspecified atrial fibrillation; I12.9 Hypertensive chronic kidney disease with stage 1 through stage 4 chronic kidney disease, or unspecified chronic kidney disease; E11.22 Type 2 diabetes mellitus with diabetic chronic kidney disease; N18.30 Chronic kidney disease, stage 3 unspecified; Z79.4 Long term (current) use of insulin; Z79.899 Other long term (current) drug therapy
CPT/HCPCS: 36415; 51701; 70450; 74177; 80053; 81001; 83605; 83690; 85025; 96360; Q9967

== ENCOUNTER 2025-04-01 12:23 | Inpatient (IN) | payer MEDICARE ==
[2025-04-01 12:51] LABS: #Basophils 0.07 10x3/uL (0.0-0.2); #Eosinophils 0.24 10x3/uL (0.0-0.7); #Monocytes 0.89 10x3/uL (0.11-0.59); #Neutrophils 7.91 10x3/uL (1.40-6.50); %Basophils 0.7 % (0.0-1.0); %Eosinophils 2.3 % (0.0-10.0); %Lymphocytes 11.3 % (21.0-51.0); %Monocytes 8.6 % (0.0-10.0); %Neutrophils 76.7 % (42.0-75.0); Hematocrit 32.9 % (36.0-47.0); Hemoglobin 10.3 g/dL (12.0-16.0); Mean Corpuscular Hemoglobin 27.5 pg (27.0-31.0); Mean Corpuscular Volume 87.7 fL (78.0-98.0); Platelet Count 212 10x3/uL (130-400); Red Blood Cell (RBC) Count 3.75 mill/uL (4.20-5.40); White Blood Cell (WBC) Count 10.32 10x3/uL (4.8-10.8)
[2025-04-01 13:31] LABS: Troponin I 0.038 ng/mL (< 0.028)
[2025-04-01 13:39] LABS: ALT (SGPT) 15 U/L (Less than 34); AST (SGOT) 27 U/L (11-34); Albumin 2.9 g/dL (3.1-4.5); Alkaline Phosphatase 148 U/L (40-110); Anion Gap 17 mmol/L (10-20); BUN (Urea Nitrogen) 84 mg/dL (9.8-20.1); Bilirubin, Total 0.8 mg/dL (0.3-1.2); Calc. Creatinine Clearance 0 mL/min (70-130); Calcium 7.7 mg/dL (7.8-10.44); Carbon Dioxide 25 mmol/L (23-31); Chloride 100 mmol/L (98-107); Globulin 3.2 g/dL (2.4-3.5); Glucose 112 mg/dL (83-110); Potassium 6.2 mmol/L (3.5-5.1); Sodium 136 mmol/L (136-145)
[2025-04-01] MEDS ORDERED: CALCIUM GLUC 1 GM/NS 50 ML IV Bag ONE (13:42)
[2025-04-01] MEDS ORDERED: Furosemide 40 MG (4 mL) VIAL ONE (13:42)
[2025-04-01 15:22] LABS: Anion Gap 15 mmol/L (10-20); BUN (Urea Nitrogen) 81 mg/dL (9.8-20.1); Calc. Creatinine Clearance 0 mL/min (70-130); Calcium 7.8 mg/dL (7.8-10.44); Carbon Dioxide 27 mmol/L (23-31); Chloride 101 mmol/L (98-107); Glucose 97 mg/dL (83-110); Potassium 6.1 mmol/L (3.5-5.1); Sodium 137 mmol/L (136-145)
[2025-04-01] MEDS ORDERED: Dextrose 50% Abboject 50 ML SYRINGE SLOW IVP PRN (17:04)
[2025-04-01] MEDS ORDERED: Glucagon 1 MG/ML KIT IM PRN (17:04)
[2025-04-01] MEDS: LOKELMA 10 GM PACKET PO SCH (17:36)
[2025-04-01 18:00] LABS: Troponin I 0.030 ng/mL (< 0.028)
[2025-04-01 22:37] LABS: Anion Gap 19 mmol/L (10-20); BUN (Urea Nitrogen) 74 mg/dL (9.8-20.1); Calc. Creatinine Clearance 0 mL/min (70-130); Calcium 7.6 mg/dL (7.8-10.44); Carbon Dioxide 24 mmol/L (23-31); Chloride 102 mmol/L (98-107); Glucose 135 mg/dL (83-110); Potassium 5.6 mmol/L (3.5-5.1); Sodium 139 mmol/L (136-145)
[2025-04-01 22:42] LABS: Troponin I 0.030 ng/mL (< 0.028)
[2025-04-01] MEDS: Aspirin 81 mg Enteric Coated Tablet PO SCH (23:27)
[2025-04-01] MEDS: ALPRAZolam 0.5 MG TAB PO PRN (23:27)
[2025-04-01 23:45] VITALS: BMI 25.5
[2025-04-02 04:58] LABS: #Basophils 0.06 10x3/uL (0.0-0.2); #Eosinophils 0.22 10x3/uL (0.0-0.7); #Monocytes 1.05 10x3/uL (0.11-0.59); #Neutrophils 5.71 10x3/uL (1.40-6.50); %Basophils 0.7 % (0.0-1.0); %Eosinophils 2.6 % (0.0-10.0); %Lymphocytes 15.4 % (21.0-51.0); %Monocytes 12.6 % (0.0-10.0); %Neutrophils 68.5 % (42.0-75.0); Hematocrit 32.0 % (36.0-47.0); Hemoglobin 9.7 g/dL (12.0-16.0); Mean Corpuscular Hemoglobin 26.8 pg (27.0-31.0); Mean Corpuscular Volume 88.4 fL (78.0-98.0); Platelet Count 205 10x3/uL (130-400); Red Blood Cell (RBC) Count 3.62 mill/uL (4.20-5.40); White Blood Cell (WBC) Count 8.35 10x3/uL (4.8-10.8)
[2025-04-02 05:13] LABS: Anion Gap 17 mmol/L (10-20); BUN (Urea Nitrogen) 83 mg/dL (9.8-20.1); Calc. Creatinine Clearance 21 mL/min (70-130); Calcium 7.6 mg/dL (7.8-10.44); Carbon Dioxide 27 mmol/L (23-31); Chloride 101 mmol/L (98-107); Glucose 118 mg/dL (83-110); Potassium 5.7 mmol/L (3.5-5.1); Sodium 139 mmol/L (136-145)
[2025-04-02] MEDS: Furosemide 40 MG (4 mL) VIAL SLOW IVP SCH ×2 (05:24→16:16)
[2025-04-02] MEDS ORDERED: Lisinopril 10 MG TAB PO SCH (09:00)
[2025-04-02] MEDS: LOKELMA 10 GM PACKET PO SCH (10:05)
[2025-04-02] MEDS: Enoxaparin 30 MG (0.3 mL) SYRINGE SC SCH (10:05)
[2025-04-02] MEDS: EPOETIN ALFA-EPBX (ESRD) 10,000 UNITS/ML VIAL SC SCH (12:32)
[2025-04-02] MEDS: Albumin 25% 25 GM (100 mL) BOT IVPB SCH (12:32)
[2025-04-02] MEDS: Acetaminophen 325 MG TAB PO PRN (19:16)
[2025-04-03 05:09] LABS: #Basophils 0.03 10x3/uL (0.0-0.2); #Eosinophils 0.17 10x3/uL (0.0-0.7); #Monocytes 0.91 10x3/uL (0.11-0.59); #Neutrophils 7.27 10x3/uL (1.40-6.50); %Basophils 0.3 % (0.0-1.0); %Eosinophils 1.8 % (0.0-10.0); %Lymphocytes 11.8 % (21.0-51.0); %Monocytes 9.5 % (0.0-10.0); %Neutrophils 76.3 % (42.0-75.0); Hematocrit 28.7 % (36.0-47.0); Hemoglobin 8.9 g/dL (12.0-16.0); Mean Corpuscular Hemoglobin 27.7 pg (27.0-31.0); Mean Corpuscular Volume 89.4 fL (78.0-98.0); Platelet Count 166 10x3/uL (130-400); Red Blood Cell (RBC) Count 3.21 mill/uL (4.20-5.40); White Blood Cell (WBC) Count 9.54 10x3/uL (4.8-10.8)
[2025-04-03 05:28] LABS: ALT (SGPT) 11 U/L (Less than 34); AST (SGOT) 18 U/L (11-34); Albumin 3.5 g/dL (3.1-4.5); Alkaline Phosphatase 121 U/L (40-110); Anion Gap 16 mmol/L (10-20); BUN (Urea Nitrogen) 80 mg/dL (9.8-20.1); Bilirubin, Total 1.2 mg/dL (0.3-1.2); Calc. Creatinine Clearance 22 mL/min (70-130); Calcium 7.9 mg/dL (7.8-10.44); Carbon Dioxide 27 mmol/L (23-31); Chloride 101 mmol/L (98-107); Globulin 2.7 g/dL (2.4-3.5); Glucose 159 mg/dL (83-110); Magnesium 2.2 mg/dL (1.6-2.6); Potassium 5.1 mmol/L (3.5-5.1); Sodium 139 mmol/L (136-145)
[2025-04-03] MEDS: Ergocalciferol 1.25 MG(50,000 UNITS) CAP PO SCH (11:26)
[2025-04-04 05:15] LABS: #Basophils Less than 0.03 10x3/uL (0.0-0.2); #Eosinophils Less than 0.03 10x3/uL (0.0-0.7); #Monocytes 0.04 10x3/uL (0.11-0.59); #Neutrophils 3.35 10x3/uL (1.40-6.50); %Basophils 0.0 % (0.0-1.0); %Eosinophils 0.0 % (0.0-10.0); %Lymphocytes 10.7 % (21.0-51.0); %Monocytes 1.0 % (0.0-10.0); %Neutrophils 87.3 % (42.0-75.0); Hematocrit 29.4 % (36.0-47.0); Hemoglobin 9.2 g/dL (12.0-16.0); Mean Corpuscular Hemoglobin 27.9 pg (27.0-31.0); Mean Corpuscular Volume 89.1 fL (78.0-98.0); Platelet Count 171 10x3/uL (130-400); Red Blood Cell (RBC) Count 3.30 mill/uL (4.20-5.40); White Blood Cell (WBC) Count 3.84 10x3/uL (4.8-10.8)
[2025-04-04 05:43] LABS: ALT (SGPT) 9 U/L (Less than 34); AST (SGOT) 16 U/L (11-34); Albumin 3.3 g/dL (3.1-4.5); Alkaline Phosphatase 116 U/L (40-110); Anion Gap 18 mmol/L (10-20); BUN (Urea Nitrogen) 84 mg/dL (9.8-20.1); Bilirubin, Total 1.0 mg/dL (0.3-1.2); Calc. Creatinine Clearance 22 mL/min (70-130); Calcium 8.1 mg/dL (7.8-10.44); Carbon Dioxide 28 mmol/L (23-31); Chloride 100 mmol/L (98-107); Globulin 3.0 g/dL (2.4-3.5); Glucose 257 mg/dL (83-110); Magnesium 2.2 mg/dL (1.6-2.6); Potassium 5.3 mmol/L (3.5-5.1); Sodium 141 mmol/L (136-145)
[2025-04-04 11:43] LABS: Anion Gap 19 mmol/L (10-20); BUN (Urea Nitrogen) 82 mg/dL (9.8-20.1); Calc. Creatinine Clearance 23 mL/min (70-130); Calcium 8.2 mg/dL (7.8-10.44); Carbon Dioxide 27 mmol/L (23-31); Chloride 99 mmol/L (98-107); Glucose 311 mg/dL (83-110); Potassium 5.0 mmol/L (3.5-5.1); Sodium 140 mmol/L (136-145)
[2025-04-04 18:10] VITALS: BMI 25.6
[2025-04-05 04:58] LABS: Anion Gap 18 mmol/L (10-20); BUN (Urea Nitrogen) 89 mg/dL (9.8-20.1); Calc. Creatinine Clearance 23 mL/min (70-130); Calcium 7.8 mg/dL (7.8-10.44); Carbon Dioxide 27 mmol/L (23-31); Chloride 98 mmol/L (98-107); Glucose 259 mg/dL (83-110); Potassium 4.7 mmol/L (3.5-5.1); Sodium 138 mmol/L (136-145)
[2025-04-05 08:50] LABS: Magnesium 2.1 mg/dL (1.6-2.6)
[2025-04-05] MEDS: Insulin Glargine 30 UNITS/0.3 ML VIAL SC SCH (20:51)
[2025-04-06 04:49] LABS: Hematocrit 29.7 % (36.0-47.0); Hemoglobin 9.3 g/dL (12.0-16.0); Mean Corpuscular Hemoglobin 27.4 pg (27.0-31.0); Mean Corpuscular Volume 87.6 fL (78.0-98.0); Platelet Count 233 10x3/uL (130-400); Red Blood Cell (RBC) Count 3.39 mill/uL (4.20-5.40); White Blood Cell (WBC) Count 12.34 10x3/uL (4.8-10.8)
[2025-04-06 04:53] LABS: Anion Gap 15 mmol/L (10-20); BUN (Urea Nitrogen) 102 mg/dL (9.8-20.1); Calc. Creatinine Clearance 25 mL/min (70-130); Calcium 7.5 mg/dL (7.8-10.44); Carbon Dioxide 29 mmol/L (23-31); Chloride 98 mmol/L (98-107); Glucose 171 mg/dL (83-110); Potassium 4.2 mmol/L (3.5-5.1); Sodium 138 mmol/L (136-145)
[2025-04-06] MEDS: Lisinopril 10 MG TAB PO SCH (09:20)
[2025-04-06 12:50] LABS: #Basophils Less than 0.03 10x3/uL (0.0-0.2); #Eosinophils 0.15 10x3/uL (0.0-0.7); #Monocytes 0.76 10x3/uL (0.11-0.59); #Neutrophils 8.88 10x3/uL (1.40-6.50); %Basophils 0.1 % (0.0-1.0); %Eosinophils 1.4 % (0.0-10.0); %Lymphocytes 9.6 % (21.0-51.0); %Monocytes 7.0 % (0.0-10.0); %Neutrophils 81.5 % (42.0-75.0); Hematocrit 33.4 % (36.0-47.0); Hemoglobin 10.6 g/dL (12.0-16.0); Mean Corpuscular Hemoglobin 28.3 pg (27.0-31.0); Mean Corpuscular Volume 89.1 fL (78.0-98.0); Platelet Count 257 10x3/uL (130-400); Red Blood Cell (RBC) Count 3.75 mill/uL (4.20-5.40); White Blood Cell (WBC) Count 10.89 10x3/uL (4.8-10.8)
[2025-04-06 13:06] LABS: Bacteria/HPF None Seen HPF (None Seen); CAUTI Indications for Culture Dysuria,urgency,freq; Glucose, Urine (Dipstick) Normal (Negative); Leukocyte 25 Leu/uL (Negative); Protein, Urine (Dipstick) Negative (Neg-Trace); RBC/HPF 0-3 HPF (0-3); Specific Gravity, Urine 1.010 (1.002-1.036)
[2025-04-06 13:09] LABS: Urine Culture Reflex No No
[2025-04-07 04:56] LABS: #Basophils Less than 0.03 10x3/uL (0.0-0.2); #Eosinophils 0.15 10x3/uL (0.0-0.7); #Monocytes 0.70 10x3/uL (0.11-0.59); #Neutrophils 7.75 10x3/uL (1.40-6.50); %Basophils 0.1 % (0.0-1.0); %Eosinophils 1.6 % (0.0-10.0); %Lymphocytes 10.4 % (21.0-51.0); %Monocytes 7.2 % (0.0-10.0); %Neutrophils 80.2 % (42.0-75.0); Hematocrit 31.0 % (36.0-47.0); Hemoglobin 9.8 g/dL (12.0-16.0); Mean Corpuscular Hemoglobin 27.8 pg (27.0-31.0); Mean Corpuscular Volume 87.8 fL (78.0-98.0); Platelet Count 231 10x3/uL (130-400); Red Blood Cell (RBC) Count 3.53 mill/uL (4.20-5.40); White Blood Cell (WBC) Count 9.66 10x3/uL (4.8-10.8)
[2025-04-07 05:16] LABS: Anion Gap 14 mmol/L (10-20); BUN (Urea Nitrogen) 92 mg/dL (9.8-20.1); Calc. Creatinine Clearance 26 mL/min (70-130); Calcium 7.4 mg/dL (7.8-10.44); Carbon Dioxide 30 mmol/L (23-31); Chloride 96 mmol/L (98-107); Glucose 223 mg/dL (83-110); Potassium 3.9 mmol/L (3.5-5.1); Sodium 136 mmol/L (136-145)
[2025-04-07 12:42] VITALS: BP 138/70; TEMP 97
== END 2025-04-07 18:11 | DRG 291 ==
LOC: ERS 12:23 → ERHOLD 15:41 → 2NO 21:20
PROVIDERS: ADMIT Hospitalist; ATTEND Internal Medicine
DX: I13.0 Hypertensive heart and chronic kidney disease with heart failure and stage 1 through stage 4 chronic kidney disease, or unspecified chronic kidney disease (principal); I50.33 Acute on chronic diastolic (congestive) heart failure; J96.01 Acute respiratory failure with hypoxia; N17.9 Acute kidney failure, unspecified; N18.4 Chronic kidney disease, stage 4 (severe); I47.10 Supraventricular tachycardia, unspecified; N25.81 Secondary hyperparathyroidism of renal origin; I25.10 Atherosclerotic heart disease of native coronary artery without angina pectoris; E87.5 Hyperkalemia; L89.159 Pressure ulcer of sacral region, unspecified stage; E11.22 Type 2 diabetes mellitus with diabetic chronic kidney disease; E88.09 Other disorders of plasma-protein metabolism, not elsewhere classified; D63.1 Anemia in chronic kidney disease; I50.9 Heart failure, unspecified; E11.51 Type 2 diabetes mellitus with diabetic peripheral angiopathy without gangrene; J43.9 Emphysema, unspecified; J44.9 Chronic obstructive pulmonary disease, unspecified; Z79.899 Other long term (current) drug therapy; Z88.8 Allergy status to other drugs, medicaments and biological substances
CPT/HCPCS: 36415; 36416; 71045; 76770; 80048; 80053; 81001; 82306; 83735; 83880; 83970; 84145; 84484; 85025; 85027; 87040; 93005; 93306; 94640; 94760; 96374; 96375; 97139; J0613; J0692; J1650; J1815; J1940; J2919; J7620; P9047; Q5105